=== PATIENT | female | born 1955 | race Caucasian/White ===

== ENCOUNTER 2016-10-20 10:17 | Outpatient (CLI) | payer MEDICARE, OTHER | END 2016-10-20 10:18 | disposition home or self-care (01) | DX: J32.8 Other chronic sinusitis (principal) ==

== ENCOUNTER 2016-12-19 08:49 | Outpatient (CLI) | payer MEDICARE, OTHER ==
[2016-12-19] MEDS ORDERED: IOTHALAMATE MEGLUMINE 50 ML VIAL IVP ONE (10:15)
[2016-12-19] MEDS ORDERED: GADOPENTETATE DIMEGLUMINE 5 ML VIAL IVP ONE ×2 (10:15→11:04)
[2016-12-19] MEDS ORDERED: LIDOCAINE 1% 50 ML MDV SUBQ ONE ×2 (10:15→10:57)
[2016-12-19] MEDS ORDERED: BUFFERED LIDOCAINE 10 ML SYRINGE IU ONE (10:15)
[2016-12-19] MEDS: BUFFERED LIDOCAINE 10 ML SYRINGE IU ONE ×2 (10:49→11:06)
[2016-12-19] MEDS: IOTHALAMATE MEGLUMINE 50 ML VIAL IVP ONE ×2 (11:05→11:08)
== END 2016-12-19 08:50 | disposition home or self-care (01) ==
DX: M75.101 Unspecified rotator cuff tear or rupture of right shoulder, not specified as traumatic (principal); M19.011 Primary osteoarthritis, right shoulder; S43.491A Other sprain of right shoulder joint, initial encounter; M19.012 Primary osteoarthritis, left shoulder; M75.82 Other shoulder lesions, left shoulder
CPT/HCPCS: 23350; 73222; 77002; Q9961

== ENCOUNTER 2017-09-15 23:34 | Emergency (ER) | payer MEDICARE, OTHER ==
--- NOTE | 2017-09-16 00:10 | XRAY Preliminary Report ---
Exam: XR FOOT 2 VIEW RT IMPRESSION: 1. No acute fracture or dislocation seen. [facility] SITE ID: [id number]
--- NOTE | 2017-09-16 00:12 | XRAY Report ---
EXAM: RIGHT FOOT RADIOGRAPHY EXAM DATE: 09/15/2017 11:59 PM. CLINICAL HISTORY: Trauma, pain swelling 2nd digit. COMPARISON: None. TECHNIQUE: 2 views. FINDINGS: Bones: No acute fracture seen. Old healed fracture in the second metatarsal. Plantar calcaneal osteop hyte. Joints: No dislocation seen. Mild degenerative changes. Soft Tissues: Mild soft tissue swelling. IMPRESSION: 1. No acute fracture or dislocation seen. [facility] Referring Provider Line: [phone] SITE ID: [id number]
--- NOTE | 2017-09-16 00:29 | ED Physician Documentation ---
PD HPI LOWER EXT INJURY - Stated complaint Stated Complaint: RT FOOT PX - Chief complaint Chief Complaint: Ext Problem - History obtained from History obtained from: Patient - History of Present Illness PD HPI LOW EXT INJURY LOCATION: Right, Toe Type of injury: Blunt / blow Where injury occurred: Home Timing - onset: Today Timing - details: Abrupt onset Worsened by: Moving, Palpating Associated symptoms: Discolored Recently seen: Not recently seen - Additional information Additional information: Patient is a 62 year old female who is presenting to the emergency department for toe pain. Patient states that she accidently kicked the table and no she had tenderness, ecchymosis and swelling of her toe so she wanted to see if it was broken. Patient denied any other trauma at this time. 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 - Present Medications Home Medications: Ambulatory Orders Medication Instructions Recorded Confirmed Albuterol 2.5 mg INH DAILY PRN 04/15/13 09/16/17 Aspirin 81 mg PO DAILY 04/15/13 09/16/17 Atorvastatin Calcium [Lipitor] 20 mg PO DAILY 04/15/13 09/16/17 Fexofenadine HCl [Vandana] 180 mg PO DAILY 04/15/13 09/16/17 Gabapentin [Neurontin] 1,200 mg PO HS 04/15/13 09/16/17 Gabapentin [Neurontin] 300 mg PO BID 04/15/13 09/16/17 Guaifenesin [Mucinex] 600 mg PO DAILY PRN 04/15/13 09/16/17 Indomethacin 75 mg PO BID 04/15/13 09/16/17 Montelukast Sodium [Singulair] 10 mg PO DAILY 04/15/13 09/16/17 Multivitamin [Multivitamins] 1 each PO DAILY 04/15/13 09/16/17 Omeprazole [Prilosec] 20 mg PO BID 04/15/13 09/16/17 Ranitidine HCl [Zantac 75] 150 mg PO DAILY PRN 04/15/13 09/16/17 Vit D3-Vit K/[place]/Hops 1 each PO DAILY 04/15/13 09/16/17 [Ostera Tablet] Cromolyn Sodium 1 puffs INH DAILY PRN 07/09/14 09/16/17 Ipratropium [place] 0.2 mg INH DAILY PRN 07/09/14 09/16/17 Fluticasone Propionate [Flonase 1 spray JACQUELINE BID 05/26/15 09/16/17 Allergy Relief] Fluticasone/Salmeterol [Advair 1 inh INH BID 05/27/15 09/16/17 500-50 Diskus] Tiotropium [place] [Spiriva] 1 tab INH QDBREAKFAST 05/27/15 09/16/17 HYDROcod/ACETAM 5/325 [Vicodin 1 tab PO Q6H PRN 10/28/15 09/16/17 5/325] Losartan/Hydrochlorothiazide 1 tab PO DAILY 10/28/15 09/16/17 [Losartan-Hctz 100-12.5 mg Tab] Nortriptyline [Pamelor] 10 mg PO DAILY 10/28/15 09/16/17 diltiaZEM [Cardizem] 30 mg PO DAILY 09/16/17 09/16/17 - Allergies Allergies/Adverse Reactions: Allergies Allergy/AdvReac Type Severity Reaction Status Date / Time adhesive AdvReac Severe Blisters Verified 09/15/17 23:42 codeine [Codeine] AdvReac Mild Cramps Verified 09/15/17 23:42 Fish Containing Products AdvReac Nausea Verified 09/15/17 23:42 hand sanitizers Allergy Severe reactive Uncoded 09/15/17 23:42 airway Most chemicals Allergy Severe Reactive Uncoded 09/15/17 23:42 airway paper tape AdvReac Intermediate blisters Uncoded 09/15/17 23:42 seafood AdvReac Intermediate Nausea Uncoded 09/15/17 23:42 - Social History Does the pt smoke?: No Smoking Status: Never smoker - Immunizations Immunizations are current?: Yes PD ED PE NORMAL - Vitals Vital signs reviewed: Yes - General General: Alert and oriented X 3, No acute distress - HEENT HEENT: Atraumatic - Neck Neck: No JVD - Cardiac Cardiac: RRR, No murmur - Respiratory Respiratory: No respiratory distress - Abdomen Abdomen: Non distended - Neuro Neuro: Alert and oriented X 3, No motor deficit, Normal speech Eye Opening: Spontaneous Motor: Obeys Commands Verbal: Oriented GCS Score: 15 - Psych Psych: Normal mood PD ED PE EXPANDED - Extremities Extremities: Right toe(s) (ecchymosis and tenderness of 2nd digit) Results - Vitals Vitals: Vital Signs - 24 hr 09/15/17 09/16/17 23:39 00:38 Temperature 36.0 C L 36.7 C Heart Rate 83 88 Respiratory 17 18 Rate Blood Pressure 145/92 H 157/89 H O2 Saturation 97 98 Oxygen O2 Source Room air - Rads (name of study) right foot Radiology: Final report received (no acute fracture or dislocation) PD MEDICAL DECISION MAKING - ED course Complexity details: reviewed old records, reviewed results, re-evaluated patient , considered differential, d/w patient, d/w family ED course: patient was seen and examined at bedside. Patient was sent for imaging. when patient returned the results were reviewed. there was no acute fracture or dislocation. Patient and family were made aware of the findings. patient required no further work up and was stable for discharge with outpatient follow up. Departure - Departure Disposition: 01 Home, Self Care Clinical Impression: Contusion of toe of right foot Condition: Good Instructions: ED Contusion Lower Ext Follow-Up: OLAMIDE MUHAMMAD [Primary Care Provider] - As Needed Comments: Your diagnostics today were within normal limits. there was no acute fracture or dislocation. You can take motrin or tylenol as needed for pain. You should follow up with your doctor if your symptoms persist. Discharge Date/Time: 09/16/17 00:41
[2017-09-16 00:40] VITALS: BP 157/89
== END 2017-09-16 00:41 | disposition home or self-care (01) ==
LOC: ED 23:34
DX: S90.121A Contusion of right lesser toe(s) without damage to nail, initial encounter (principal); W22.09XA Striking against other stationary object, initial encounter; I10 Essential (primary) hypertension; E78.00 Pure hypercholesterolemia, unspecified; Z79.82 Long term (current) use of aspirin
CPT/HCPCS: 99283

== ENCOUNTER 2017-09-26 09:10 | Emergency (ER) | payer MEDICARE, OTHER ==
[2017-09-26] MEDS ORDERED: ADENOSINE 6 MG/2 ML VIAL IVP ONE (09:33)
[2017-09-26] MEDS ORDERED: SODIUM CHLORIDE 0.9% 1,000 ML IV ONE (09:33)
[2017-09-26] MEDS ORDERED: ADENOSINE 6 MG/2 ML VIAL IVP STA (09:34)
--- NOTE | 2017-09-26 09:38 | ED Physician Documentation ---
History of Present Illness - Stated complaint Stated Complaint: RAPID HEART BEAT - Chief complaint Chief Complaint: Cardiac - Additonal information Additional information: hx from pt 62 f hx SVT has cardio takes dilt not a candidate for ablation until she loses wt awoke with SVT this AM no caffeine decongestants etc has some chest tightness and soa not hypotensive Review of Systems Constitutional: denies: Fever Cardiac: reports: Chest pain / pressure, Palpitations Respiratory: reports: Dyspnea GI: denies: Vomiting : denies: Now EGA Endocrine: denies: Easy bruising / bleeding Immunocompromised: denies: Immunocompromised PD PAST MEDICAL HISTORY - Past Medical History Cardiovascular: Hypertension, High cholesterol Respiratory: Asthma Neuro: None Endocrine/Autoimmune: None GI: GERD, Hiatal hernia, Diverticulitis, Other : None HEENT: Chronic sinusitis, Other Psych: None Musculoskeletal: Fibromyalgia, Other Derm: None - Past Surgical History Past Surgical History: Yes General: Cholecystectomy, Colonoscopy Ortho: Shoulder arthroplasty, Carpal Tunnel surgery /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, 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 - Present Medications Home Medications: Ambulatory Orders Medication Instructions Recorded Confirmed Albuterol 2.5 mg INH DAILY PRN 04/15/13 09/16/17 Aspirin 81 mg PO DAILY 04/15/13 09/16/17 Atorvastatin Calcium [Lipitor] 20 mg PO DAILY 04/15/13 09/16/17 Fexofenadine HCl [Vandana] 180 mg PO DAILY 04/15/13 09/16/17 Gabapentin [Neurontin] 1,200 mg PO HS 04/15/13 09/16/17 Gabapentin [Neurontin] 300 mg PO BID 04/15/13 09/16/17 Guaifenesin [Mucinex] 600 mg PO DAILY PRN 04/15/13 09/16/17 Indomethacin 75 mg PO BID 04/15/13 09/16/17 Montelukast Sodium [Singulair] 10 mg PO DAILY 04/15/13 09/16/17 Multivitamin [Multivitamins] 1 each PO DAILY 04/15/13 09/16/17 Omeprazole [Prilosec] 20 mg PO BID 04/15/13 09/16/17 Ranitidine HCl [Zantac 75] 150 mg PO DAILY PRN 04/15/13 09/16/17 Vit D3-Vit K/[place]/Hops 1 each PO DAILY 04/15/13 09/16/17 [Ostera Tablet] Cromolyn Sodium 1 puffs INH DAILY PRN 07/09/14 09/16/17 Ipratropium [place] 0.2 mg INH DAILY PRN 07/09/14 09/16/17 Fluticasone Propionate [Flonase 1 spray JACQUELINE BID 05/26/15 09/16/17 Allergy Relief] Fluticasone/Salmeterol [Advair 1 inh INH BID 05/27/15 09/16/17 500-50 Diskus] Tiotropium [place] [Spiriva] 1 tab INH QDBREAKFAST 05/27/15 09/16/17 HYDROcod/ACETAM 5/325 [Vicodin 1 tab PO Q6H PRN 10/28/15 09/16/17 5/325] Losartan/Hydrochlorothiazide 1 tab PO DAILY 10/28/15 09/16/17 [Losartan-Hctz 100-12.5 mg Tab] Nortriptyline [Pamelor] 10 mg PO DAILY 10/28/15 09/16/17 diltiaZEM [Cardizem] 30 mg PO DAILY 09/16/17 09/16/17 - Allergies Allergies/Adverse Reactions: Allergies Allergy/AdvReac Type Severity Reaction Status Date / Time adhesive AdvReac Severe Blisters Verified 09/15/17 23:42 codeine [Codeine] AdvReac Mild Cramps Verified 09/15/17 23:42 Fish Containing Products AdvReac Nausea Verified 09/15/17 23:42 hand sanitizers Allergy Severe reactive Uncoded 09/15/17 23:42 airway Most chemicals Allergy Severe Reactive Uncoded 09/15/17 23:42 airway paper tape AdvReac Intermediate blisters Uncoded 09/15/17 23:42 seafood AdvReac Intermediate Nausea Uncoded 09/15/17 23:42 - Social History Does the pt smoke?: No Smoking Status: Never smoker - Immunizations Immunizations are current?: Yes PD ED PE NORMAL - Vitals Vital signs reviewed: Yes - General General: Alert and oriented X 3 - HEENT HEENT: PERRL - Neck Neck: Supple, no meningeal sign - Cardiac Cardiac: No: RRR (tachy) - Respiratory Respiratory: No respiratory distress, Clear bilaterally - Derm Derm: Normal color - Extremities Extremities: No edema, No calf tenderness / cord - Neuro Neuro: Alert and oriented X 3 Results - Vitals Vitals: Vital Signs - 24 hr 09/26/17 09:31 Heart Rate 185 H Respiratory 22 Rate Blood Pressure 139/75 H O2 Saturation 98 Oxygen O2 Source Room air - EKG (time done) 0923 Rate: Rate (enter#) (179) Rhythm: SVT Ischemia: Non specific changes (2/2 rate) 0929 Rate: Rate (enter#) (120) Rhythm: Sinus tachycardia [place]: Normal Ischemia: Non specific changes - Labs Labs: Laboratory Tests 09/26/17 09:30 Sodium 139 Potassium 3.6 Chloride 103 Carbon Dioxide 20 L Anion Gap 16.0 H BUN 13 Creatinine 1.0 Estimated GFR (MDRD) 57 L Glucose 137 H Calcium 10.0 Magnesium 2.2 PD MEDICAL DECISION MAKING - ED course ED course: tried vagal maneuvers (ice on face, elev legs, blow on syringe) X 2 s success gave adenosine 6 with break and pt felt better creat 1.0 GFR 57 similar to prior Departure - Departure Disposition: 01 Home, Self Care Clinical Impression: SVT (supraventricular tachycardia) Condition: Good Instructions: ED Tachycardia Pat PSVT Comments: Your electrolytes were fine. You are back in a sinus rhythm It is OK for you to go home. 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
[2017-09-26 10:03] LABS: MAGNESIUM 2.2 mg/dL (1.7-2.8); POTASSIUM 3.6 mmol/L (3.5-5.0)
[2017-09-26 10:41] VITALS: BP 141/80
== END 2017-09-26 10:58 | disposition home or self-care (01) ==
LOC: ED 09:10
DX: I47.1 Supraventricular tachycardia (principal); I10 Essential (primary) hypertension; E78.00 Pure hypercholesterolemia, unspecified; J45.909 Unspecified asthma, uncomplicated; K21.9 Gastro-esophageal reflux disease without esophagitis; M79.7 Fibromyalgia; Z79.82 Long term (current) use of aspirin
CPT/HCPCS: 36415; 80048; 83735; 93005; 96361; 96374; 99284; J0153

== ENCOUNTER 2018-08-25 14:37 | Outpatient (CLI) | payer MEDICARE, OTHER ==
--- NOTE | 2018-08-27 11:44 | MRI Report ---
Reason: PAIN IN RIGHT SHOULDER Procedure Date: 08/25/2018 Accession Number: [id number] / [id number] Procedure: MRI - Shoulder RT W/O CPT Code: FULL RESULT: EXAM: RIGHT SHOULDER MRI WITHOUT CONTRAST EXAM DATE: 08/25/2018 03:03 PM. CLINICAL HISTORY: Pain in right shoulder. COMPARISON: None. TECHNIQUE: Multiplanar, multisequence T1-weighted and fluid-sensitive sequences of the shoulder without contrast. Other: None. FINDINGS: Acromioclavicular Region: The acromion is type II. AC joint is moderately osteoarthritic. The coracoacromial and coracoclavicular ligaments are intact. Trace amount of subacromial bursal fluid is present. Glenohumeral Region: No subluxation. Fusion, loose body and debris seen dependently. 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 Large marginal osteophyte arises from the inferior medial humeral head. The glenohumeral ligaments and joint capsule are unremarkable. Bony labrum is somewhat broadened as well. Bone Marrow: Small amount of subjacent cystic change at the central aspect of the glenoid. Series 6 on image 13. Labrum: Type I SLAP lesion on this non-arthrographic study. Series 601 image 11 and 12. Musculature/Rotator Cuff: Increased T2 signal and thickening of the supraspinatus, infraspinatus and to a lesser extent the subscapularis portion of the rotator cuff. Teres minor is normal. Biceps Tendon: Long head biceps tendon near the horizontal portion does show some type I signal change. Remainder of the tendon appears unremarkable. Other: The subcutaneous tissues are unremarkable. IMPRESSION: 1. Type II unipartite undersurface osseous acromion shape. AC joint is moderately osteoarthritic, trace amount of bursal fluid also is present. 2. Moderate-sized joint effusion. Loose body is seen dependently. 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 Large marginal osteophyte arises from the inferior medial humeral head. 3. Glenoid is somewhat broadened, there also is loss of articular cartilage in the weightbearing aspect and a small subjacent cystic change. 4. At least a type I SLAP lesion is present. 5. Horizontal intra-articular biceps tendon does show some tendinitis. [facility] MUSCULOSKELETAL RADIOLOGY SECTION
== END 2018-08-25 14:38 | disposition home or self-care (01) ==
LOC: DI 14:37
PROVIDERS: ATTEND Physician Assistant
DX: M19.011 Primary osteoarthritis, right shoulder (principal); M25.411 Effusion, right shoulder; M24.011 Loose body in right shoulder; M94.211 Chondromalacia, right shoulder; S43.431A Superior glenoid labrum lesion of right shoulder, initial encounter; M75.21 Bicipital tendinitis, right shoulder; M24.111 Other articular cartilage disorders, right shoulder

== ENCOUNTER 2019-09-11 10:48 | Outpatient (CLI) | payer MEDICARE, OTHER ==
--- NOTE | 2019-09-11 16:04 | Ultrasound Report ---
Reason: LUMBAR STENOSIS WITH NEUROGENIC CLAUDICATION Procedure Date: 09/11/2019 Accession Number: [id number] / [id number] Procedure: US - Ankle Brachial Index CPT Code: Final Report FULL RESULT: EXAM: ULTRASOUND - BILATERAL ANKLE BRACHIAL INDEX EXAM DATE: 09/11/2019 12:41 PM. CLINICAL HISTORY: Neurogenic claudication. COMPARISON: None. TECHNIQUE: Real-time sonographic vascular imaging was performed by the sql database programmer, utilizing color-flow, Doppler flow documenting ABIs. FINDINGS: Right systolic pressure: Brachial: 130/70 Ankle: 131/66 ZARIA: 1.0 Left systolic pressure: Brachial: 121/71 Ankle: 143/67 ZARIA: 1.18 IMPRESSION: 1. Right ZARIA 1.0. Normal. 2. Left ZARIA 1.18 normal. [facility]
== END 2019-09-11 10:49 | disposition home or self-care (01) ==
LOC: DI 10:48
PROVIDERS: ATTEND Physical Medicine & Rehabilitation
DX: M48.062 Spinal stenosis, lumbar region with neurogenic claudication (principal)
CPT/HCPCS: 93922

== ENCOUNTER 2020-09-24 01:05 | Emergency (ER) | payer MEDICARE, OTHER ==
[2020-09-24 03:17] VITALS: BP 130/70
--- NOTE | 2020-09-24 04:03 | ED Physician Documentation ---
History of Present Illness - Stated complaint Stated Complaint: NOSE BLEED - Chief complaint Chief Complaint: Heent - History obtained from History obtained from: Patient - Additonal information Additional information: 65-year-old woman with history of recurrent sinusitis taking daily nasal sprays, not on blood thinners or anticoagulation, taking only a baby aspirin daily presents with first-time bilateral epistaxis that resolved around midnight. Patient states that she was holding a washcloth to her face for about 30 minutes and it became soaked so she came to the ED. On arrival to the ED she was given a nasal clamp and it stopped. She was observed for 2 hours and had no recurrence. No other complaints at this time. She denies nose picking. Denies pain or fever. 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 - Present Medications Home Medications: Ambulatory Orders Medication Instructions Recorded Confirmed Albuterol 2.5 mg INH DAILY PRN 04/15/13 09/16/17 Aspirin 81 mg PO DAILY 04/15/13 09/16/17 Atorvastatin Calcium [Lipitor] 20 mg PO DAILY 04/15/13 09/16/17 Fexofenadine HCl [Vandana] 180 mg PO DAILY 04/15/13 09/16/17 Gabapentin [Neurontin] 1,200 mg PO HS 04/15/13 09/16/17 Gabapentin [Neurontin] 300 mg PO BID 04/15/13 09/16/17 Guaifenesin [Mucinex] 600 mg PO DAILY PRN 04/15/13 09/16/17 Indomethacin 75 mg PO BID 04/15/13 09/16/17 Montelukast Sodium [Singulair] 10 mg PO DAILY 04/15/13 09/16/17 Multivitamin [Multivitamins] 1 each PO DAILY 04/15/13 09/16/17 Omeprazole [Prilosec] 20 mg PO BID 04/15/13 09/16/17 Vit D3-Vit K/[place]/Hops 1 each PO DAILY 04/15/13 09/16/17 [Ostera Tablet] raNITIdine HCL [Zantac 75] 150 mg PO DAILY PRN 04/15/13 09/16/17 Cromolyn Sodium 1 puffs INH DAILY PRN 07/09/14 09/16/17 Ipratropium [place] 0.2 mg INH DAILY PRN 07/09/14 09/16/17 Fluticasone Propionate [Flonase 1 spray JACQUELINE BID 05/26/15 09/16/17 Allergy Relief] Fluticasone/Salmeterol [Advair 1 inh INH BID 05/27/15 09/16/17 500-50 Diskus] Tiotropium [place] [Spiriva] 1 tab INH QDBREAKFAST 05/27/15 09/16/17 HYDROcod/ACETAM 5/325 [Vicodin 1 tab PO Q6H PRN 10/28/15 09/16/17 5/325] Losartan/Hydrochlorothiazide 1 tab PO DAILY 10/28/15 09/16/17 [Losartan-Hctz 100-12.5 mg Tab] Nortriptyline [Pamelor] 10 mg PO DAILY 10/28/15 09/16/17 diltiaZEM [Cardizem] 30 mg PO DAILY 09/16/17 09/16/17 - Allergies Allergies/Adverse Reactions: Allergies Allergy/AdvReac Type Severity Reaction Status Date / Time adhesive AdvReac Severe Blisters Verified 09/24/20 01:17 codeine [Codeine] AdvReac Mild Cramps Verified 09/24/20 01:17 Fish Containing Products AdvReac Nausea Verified 09/24/20 01:17 hand sanitizers Allergy Severe reactive Uncoded 09/15/17 23:42 airway Most chemicals Allergy Severe Reactive Uncoded 09/15/17 23:42 airway paper tape AdvReac Intermediate blisters Uncoded 09/15/17 23:42 seafood AdvReac Intermediate Nausea Uncoded 09/15/17 23:42 - Social History Does the pt smoke?: No Smoking Status: Never smoker - Immunizations Immunizations are current?: Yes PD ED PE NORMAL - Vitals Vital signs reviewed: Yes - General General: Alert and oriented X 3 - HEENT HEENT: Atraumatic, PERRL, EOMI, Moist mucous membranes, Other (Bilateral dried blood in the nares. No nasal septal hematoma.No obvious bleeding origin to cauterize) - Derm Derm: Normal color - Psych Psych: Normal mood, Normal affect Results - Vitals Vitals: Vital Signs - 24 hr 09/24/20 09/24/20 09/24/20 01:05 01:36 03:15 Temperature 36.1 C L 36.5 C 36.5 C Heart Rate 93 93 88 Respiratory 19 19 16 Rate Blood Pressure 134/69 H 134/69 H 130/70 O2 Saturation 97 97 98 Oxygen O2 Source Room air PD MEDICAL DECISION MAKING - ED course Complexity details: re-evaluated patient, d/w patient ED course: 65-year-old woman with history of sinusitis presents with epistaxis that resolved in the ED with conservative measures. Patient was educated on how to address nosebleed initially outpatient and extensive education was given about red flags for return. She will call to follow up with her ear nose and throat doctor this week. Departure - Departure Disposition: 01 Home, Self Care Clinical Impression: Epistaxis Condition: Good Instructions: Nosebleed Comments: You have been seen in the emergency department for nosebleed. Make sure that you apply direct pressure for 10 minutes if you have another nosebleed and lean forward. Return to the ED if it does not stop after that time. Call your ear nose and throat doctor and make an appointment this week.Avoid use of nasal sprays since they can damage your tissues. Discharge Date/Time: 09/24/20 03:15
== END 2020-09-24 03:15 | disposition home or self-care (01) ==
LOC: ED 01:05
DX: R04.0 Epistaxis (principal)
CPT/HCPCS: 99281; 99282

== ENCOUNTER 2020-09-27 05:52 | Emergency (ER) | payer MEDICARE, OTHER ==
[2020-09-27] MEDS ORDERED: OXYMETAZOLINE HCL 100 SPRAYS BOTTLE NAS STA (05:57)
[2020-09-27 06:08] VITALS: BP 117/98
[2020-09-27] MEDS ORDERED: WATER FOR INJECTION,STERILE 10 ML ONE (06:19)
--- NOTE | 2020-09-27 06:30 | ED Physician Documentation ---
History of Present Illness - Stated complaint Stated Complaint: NOSE BLEED - Chief complaint Chief Complaint: Heent - History obtained from History obtained from: Patient - Additonal information Additional information: Patient comes emergency department complaining of a right-sided nosebleed for the third Past 4 days. The patient denies any trauma to her nose. She has a history of high blood pressure but this has been under control with meds. She takes only aspirin as far as anticoagulation. She denies any recent cold or allergies. No straining recently such as coughing, vomiting, or constipation. She states she had not previously had a problem with nosebleeds until the last several days. She states she was seen here a few days ago after her nose bled for an hour and a half, but that by the time she got here, the bleeding had stopped. At that time, she decided to just leave well enough alone. Yesterday, she had another bleed on the right side and this lasted an hour and a half of finally stopped so she did not come in. Today, she has been bleeding for about 30 minutes. She does have an established relationship with ENT and scheduled to see them in 3 days. No other complaints at this time. Review of Systems Ten Systems: 10 systems reviewed and negative Constitutional: reports: Reviewed and negative Eyes: reports: Reviewed and negative Ears: reports: Reviewed and negative Nose: reports: Epistaxis, Sinus pressure / pain Throat: reports: Reviewed and negative Cardiac: reports: Reviewed and negative Respiratory: reports: Reviewed and negative GI: reports: Reviewed and negative : reports: Reviewed and negative Skin: reports: Reviewed and negative Musculoskeletal: reports: Reviewed and negative Neurologic: reports: Reviewed and negative Psychiatric: reports: Reviewed and negative Endocrine: reports: Reviewed and negative Immunocompromised: reports: Reviewed and negative PD PAST MEDICAL HISTORY - Past Medical History Cardiovascular: Hypertension, High cholesterol Respiratory: Asthma Endocrine/Autoimmune: None GI: GERD, Hiatal hernia, Diverticulitis, Other : None HEENT: Chronic sinusitis, Other Psych: None Musculoskeletal: Fibromyalgia, Other Derm: None - Past Surgical History Past Surgical History: Yes General: Cholecystectomy, Colonoscopy Ortho: Shoulder arthroplasty, Carpal Tunnel surgery /PROJECT DIRECTOR: Hysterectomy, Oophrectomy - Present Medications Home Medications: Ambulatory Orders Medication Instructions Recorded Confirmed Albuterol 2.5 mg INH DAILY PRN 04/15/13 09/16/17 Aspirin 81 mg PO DAILY 04/15/13 09/16/17 Atorvastatin Calcium [Lipitor] 20 mg PO DAILY 04/15/13 09/16/17 Fexofenadine HCl [Vandana] 180 mg PO DAILY 04/15/13 09/16/17 Gabapentin [Neurontin] 1,200 mg PO HS 04/15/13 09/16/17 Gabapentin [Neurontin] 300 mg PO BID 04/15/13 09/16/17 Guaifenesin [Mucinex] 600 mg PO DAILY PRN 04/15/13 09/16/17 Indomethacin 75 mg PO BID 04/15/13 09/16/17 Montelukast Sodium [Singulair] 10 mg PO DAILY 04/15/13 09/16/17 Multivitamin [Multivitamins] 1 each PO DAILY 04/15/13 09/16/17 Omeprazole [Prilosec] 20 mg PO BID 04/15/13 09/16/17 Vit D3-Vit K/Berberine/Hops 1 each PO DAILY 04/15/13 09/16/17 [Ostera Tablet] raNITIdine HCL [Zantac 75] 150 mg PO DAILY PRN 04/15/13 09/16/17 Cromolyn Sodium 1 puffs INH DAILY PRN 07/09/14 09/16/17 Ipratropium [place] 0.2 mg INH DAILY PRN 07/09/14 09/16/17 Fluticasone Propionate [Flonase 1 spray JACQUELINE BID 05/26/15 09/16/17 Allergy Relief] Fluticasone/Salmeterol [Advair 1 inh INH BID 05/27/15 09/16/17 500-50 Diskus] Tiotropium [place] [Spiriva] 1 tab INH QDBREAKFAST 05/27/15 09/16/17 HYDROcod/ACETAM 5/325 [Vicodin 1 tab PO Q6H PRN 10/28/15 09/16/17 5/325] Losartan/Hydrochlorothiazide 1 tab PO DAILY 10/28/15 09/16/17 [Losartan-Hctz 100-12.5 mg Tab] Nortriptyline [Pamelor] 10 mg PO DAILY 10/28/15 09/16/17 diltiaZEM [Cardizem] 30 mg PO DAILY 09/16/17 09/16/17 - Allergies Allergies/Adverse Reactions: Allergies Allergy/AdvReac Type Severity Reaction Status Date / Time adhesive AdvReac Severe Blisters Verified 09/24/20 01:17 codeine [Codeine] AdvReac Mild Cramps Verified 09/24/20 01:17 Fish Containing Products AdvReac Nausea Verified 09/24/20 01:17 hand sanitizers Allergy Severe reactive Uncoded 09/15/17 23:42 airway Most chemicals Allergy Severe Reactive Uncoded 09/15/17 23:42 airway paper tape AdvReac Intermediate blisters Uncoded 09/15/17 23:42 seafood AdvReac Intermediate Nausea Uncoded 09/15/17 23:42 - Social History Does the pt smoke?: No Smoking Status: Never smoker - Immunizations Immunizations are current?: Yes PD ED PE NORMAL - Vitals Vital signs reviewed: Yes - General General: Alert and oriented X 3, No acute distress - HEENT HEENT: Atraumatic, PERRL, EOMI, Moist mucous membranes, Other (Both fresh and dried blood are noted in Ulnaris. Moderate size clot expelled from patient's mouth voluntarily. No active bleeding. Eroded area noted on right side of nasal septum.) - Neck Neck: Supple, no meningeal sign - Cardiac Cardiac: RRR, No murmur - Respiratory Respiratory: No respiratory distress, Clear bilaterally - Abdomen Abdomen: Soft, Non tender, Non distended - Derm Derm: Warm and dry - Extremities Extremities: No deformity - Neuro Neuro: Alert and oriented X 3 - Psych Psych: Normal mood, Normal affect Results - Vitals Vitals: Vital Signs - 24 hr 09/27/20 05:55 Temperature 36.2 C L Heart Rate 96 Respiratory 18 Rate Blood Pressure 117/98 H O2 Saturation 98 Oxygen O2 Source Room air Procedures - Epistaxis Site: Right Preparation: Clots removed, Afrin, Clamp / pressure applied Treatment: Anterior rhinorocket Other: Observed - no bleeding, Pt tolerated well, O2 sat WNL PD MEDICAL DECISION MAKING - ED course Complexity details: reviewed old records, considered differential, d/w patient ED course: Discussed with the patient that at this point in time, given the number of prolonged episodes of epistaxis that she has had in 3 days 4 days time, the best plan is to place nasal packing. The patient on the first day was told to stop her fluticasone spray, which she did, but was not given oxymetazoline. I have given her a couple of sprays of this in each nostril today, but I still feel that given the recurrence of bleeding, she would still benefit from packing. Patient prefers this also, and she states she is tired of bleeding and has upcoming ENT appointment. We have discussed epistaxis management, as well as the usual indications for return Departure - Departure Disposition: 01 Home, Self Care Clinical Impression: Epistaxis Condition: Stable Instructions: ED Nosebleed, ED Nasal Packing Anterior Removable Comments: Nasal packing has been placed, which can be removed by your ENT specialist on Monday at your appointment, if ENT feels your nose is ready. If you begin to bleed around the packing, please return to the emergency department. Discharge Date/Time: 09/27/20 06:43
== END 2020-09-27 06:43 | disposition home or self-care (01) ==
LOC: ED 05:52
DX: R04.0 Epistaxis (principal); I10 Essential (primary) hypertension; Z79.82 Long term (current) use of aspirin
CPT/HCPCS: 30901; 99282; A9270

== ENCOUNTER 2020-11-11 11:22 | Outpatient (CLI) | payer MEDICARE, OTHER ==
--- NOTE | 2020-11-11 14:59 | Mammography Report ---
BILATERAL DIGITAL SCREENING MAMMOGRAM: 11/11/2020 CLINICAL: Routine screening. Comparison is made to exams dated: 12/22/2015 mammogram, 09/04/2013 mammogram, 09/25/2012 mammogram, 09/22/2011 mammogram, and 09/18/2010 mammogram - [facility]. The tissue of both breas ts is heterogeneously dense. This may lower the sensitivity of mammography. There is a new oval equal density mass with an obscured and circumscribed margin in the right breast at 11 o'clock anterior depth. No other significant masses, calcifications, or other findings are seen in either breast. IMPRESSION: INCOMPLETE: NEEDS ADDITIONAL IMAGING EVALUATION The new oval equal density mass in the right breast resembles a cyst and is indeterminate. An ultras ound is recommended. This exam was interpreted at Station ID: [id number]. NOTE: For mammograms, a report in lay terms will be sent to the patient. Approximately 15% of breast malignancies will not be visualized mammographically. In the management of a palpable breast mass, a negative mammogram must not discourage biopsy of a clinically suspicious lesion. Electronically Signed By: Maco Hill M.D. ddp/penrad:11/11/2020 12:22:25 ACR BI-RADS Category 0: Incomplete 3340F PARENCHYMAL PATTERN: (D) - The breast(s) demonstrate(s) heterogeneously dense fibroglandular parmaryanne costa. BI-RADS CATEGORY: (0) - 0 Ultrasound [id number] Immediate follow-up LATERALITY: (B)
== END 2020-11-11 11:23 | disposition home or self-care (01) ==
LOC: DI.N 11:22
DX: Z12.31 Encounter for screening mammogram for malignant neoplasm of breast (principal); R92.8 Other abnormal and inconclusive findings on diagnostic imaging of breast

== ENCOUNTER 2020-11-26 03:35 | Outpatient (CLI) | payer MEDICARE, OTHER | END 2020-11-26 03:36 | disposition left against medical advice (07) | LOC: EMS 03:35 | DX: R55 Syncope and collapse (principal); M54.9 Dorsalgia, unspecified ==

== ENCOUNTER 2020-11-29 18:03 | Outpatient (CLI) | payer MEDICARE, OTHER | END 2020-11-29 18:04 | disposition critical access hospital (66) | LOC: EMS 18:03 | PROVIDERS: ATTEND Emergency Medicine | DX: R06.00 Dyspnea, unspecified (principal); R55 Syncope and collapse | CPT/HCPCS: A0425; A0429 ==

== ENCOUNTER 2020-11-29 18:14 | Inpatient (IN) | payer MEDICARE, OTHER ==
--- NOTE | 2020-11-29 18:33 | ED Physician Documentation ---
PD HPI DYSPNEA - Stated complaint Stated Complaint: COPD - History obtained from History obtained from: Family ( by phone), EMS - Additional information Additional information: Had preop covid test for TM tube 7 days ago and found out it was positive 6 days ago. Increasing weakness and SOA x3 days. Review of Systems Unable to obtain: Other (cannot talk) PD PAST MEDICAL HISTORY - Past Medical History Cardiovascular: Hypertension, High cholesterol Respiratory: Asthma Endocrine/Autoimmune: None GI: GERD, Hiatal hernia, Diverticulitis, Other : None HEENT: Chronic sinusitis, Other Psych: None Musculoskeletal: Fibromyalgia, Other Derm: None - Past Surgical History Past Surgical History: Yes General: Cholecystectomy, Colonoscopy Ortho: Shoulder arthroplasty, Carpal Tunnel surgery /[employer]ISTICS: Hysterectomy, Oophrectomy - Present Medications Home Medications: Ambulatory Orders Medication Instructions Recorded Confirmed Albuterol 2.5 mg INH DAILY PRN 04/15/13 11/29/20 Aspirin 81 mg PO DAILY 04/15/13 11/29/20 Atorvastatin Calcium [Lipitor] 20 mg PO DAILY 04/15/13 11/29/20 Gabapentin [Neurontin] 1,200 mg PO HS 04/15/13 11/29/20 Gabapentin [Neurontin] 300 mg PO BID 04/15/13 11/29/20 Montelukast Sodium [Singulair] 10 mg PO DAILY 04/15/13 11/29/20 Fluticasone Propionate [Flonase 2 spray JACQUELINE DAILY 05/26/15 11/29/20 Allergy Relief] Fluticasone/Salmeterol [Advair 1 inh INH BID 05/27/15 11/29/20 500-50 Diskus] Tiotropium [place] [Spiriva] 1 tab INH QDBREAKFAST 05/27/15 11/29/20 HYDROcod/ACETAM 5/325 [Vicodin 1 tab PO Q6H PRN 10/28/15 11/29/20 5/325] diltiaZEM [Cardizem] 120 mg PO DAILY 09/16/17 11/29/20 Loratadine [Claritin] 10 mg PO DAILY 11/29/20 11/29/20 Losartan Potassium 50 mg PO DAILY 11/29/20 11/29/20 Pantoprazole [Protonix] 40 mg PO BID 11/29/20 11/29/20 - Allergies Allergies/Adverse Reactions: Allergies Allergy/AdvReac Type Severity Reaction Status Date / Time adhesive AdvReac Severe Blisters Verified 09/24/20 01:17 codeine [Codeine] AdvReac Mild Cramps Verified 09/24/20 01:17 Fish Containing Products AdvReac Nausea Verified 09/24/20 01:17 hand sanitizers Allergy Severe reactive Uncoded 09/15/17 23:42 airway Most chemicals Allergy Severe Reactive Uncoded 09/15/17 23:42 airway paper tape AdvReac Intermediate blisters Uncoded 09/15/17 23:42 seafood AdvReac Intermediate Nausea Uncoded 09/15/17 23:42 - Social History Does the pt smoke?: No Smoking Status: Never smoker - Immunizations Immunizations are current?: Yes PD ED PE NORMAL - Vitals Vital signs reviewed: Yes - General General: Other (She is struggling to breathe and cannot talk. This is on 15 L of oxygen her sat is around 80% on the monitor.) - HEENT HEENT: PERRL, EOMI - Neck Neck: Supple, no meningeal sign - Respiratory Respiratory: Other (Tachypneic, hypoxic, struggling to breathe, cannot talk at all. Rhonchi right base. Diminished throughout.) - Abdomen Abdomen: Soft, Non tender - Back Back: No CVA TTP, No spinal TTP - Derm Derm: Normal color, Warm and dry - Extremities Extremities: No edema, No calf tenderness / cord - Neuro Neuro: Other (She will nod and shake her head to certain questions but somewhat slowly.) Results - Vitals Vitals: Vital Signs - 24 hr 11/29/20 11/29/20 11/29/20 18:25 18:40 18:55 Temperature 39.1 C H Heart Rate 120 H 109 H Respiratory 45 H 60 H 49 H Rate Blood Pressure 137/119 H 128/75 O2 Saturation 82 L 73 L 98 Oxygen O2 Source BIPAP Oxygen Flow Rate 15 - EKG (time done) 1851 Rate: Rate (enter#) (109) Rhythm: Sinus tachycardia Drake: Normal QRS: Low voltage Ischemia: Non specific changes Computer interpretation: Agree with computer - Labs Labs: Laboratory Tests 11/29/20 11/29/20 11/29/20 18:41 18:41 18:41 WBC 13.8 H RBC 4.45 Hgb 13.7 Hct 40.7 MCV 91.5 MCH 30.8 MCHC 33.7 RDW 12.9 Plt Count 273 MPV 9.6 Neut # (Auto) 12.3 H Lymph # (Auto) 0.7 L Gooding # (Auto) 0.6 Eos # (Auto) 0.1 Baso # (Auto) 0.0 Absolute Nucleated RBC 0.00 Nucleated RBC % 0.0 PT 15.4 H INR 1.4 H VBG pH VBG pCO2 VBG pO2 VBG HCO3 VBG Total CO2 VBG O2 Saturation VBG Base Excess Sodium 139 Potassium 3.4 L Chloride 100 L Carbon Dioxide 21 Anion Gap 18.0 H BUN 24 H Creatinine 1.2 H Estimated GFR (MDRD) 45 L Glucose 156 H Lactic Acid Calcium 9.0 Magnesium 2.0 Total Bilirubin 1.3 H AST 198 H ALT 166 H Alkaline Phosphatase 189 H Troponin I High Sens Total Protein 7.6 Albumin 3.3 Globulin 4.3 H Albumin/Globulin Ratio 0.8 L 11/29/20 11/29/20 11/29/20 18:41 18:41 18:41 WBC RBC Hgb Hct MCV MCH MCHC RDW Plt Count MPV Neut # (Auto) Lymph # (Auto) Gooding # (Auto) Eos # (Auto) Baso # (Auto) Absolute Nucleated RBC Nucleated RBC % PT INR VBG pH 7.406 VBG pCO2 34.4 L VBG pO2 26.2 VBG HCO3 21.1 L VBG Total CO2 22.2 L VBG O2 Saturation 48.7 L VBG Base Excess -2.8 L Sodium Potassium Chloride Carbon Dioxide Anion Gap BUN Creatinine Estimated GFR (MDRD) Glucose Lactic Acid 2.3 H Calcium Magnesium Total Bilirubin AST ALT Alkaline Phosphatase Troponin I High Sens 18.2 H* Total Protein Albumin Globulin Albumin/Globulin Ratio PD MEDICAL DECISION MAKING - ED course ED course: This is a Covid + 65-year-old woman who is in respiratory distress/failure. On arrival she is on maximal nonrebreather oxygen with a sat of 80% and very tachypneic. We will trial to temporize her with BiPAP but suspect she will need to be intubated. I discussed this with her and she nodded in agreement. I also spoke with her by phone who agreed. However after BiPAP was initiated, she was actually doing much better with sats near 100% and less respiratory distress. She may need still need intubation at some point but I think we can hold off for now. I did start on Rocephin and Zithromax for potential underlying community-acquired bacterial pneumonia after blood cultures. was updated by phone. Spoke with Dr. Buenrostro for admission at 7:01 PM. - Critical Care Time(min): 45 Time Includes: Direct patient care, Review records, Reassess patient, Document care, Coordinate care, Medical consult, Family consult for tx dec Data interpretation: Labs, Pulse ox, ABG Procedures included in critical care time: Peripheral IV Procedures excluded from critical care time: EKG Departure - Departure Disposition: 66 [facility] DC/Xfer Clinical Impression: Pneumonia due to COVID-19 virus Respiratory failure Qualifiers: Chronicity: acute Condition: Critical Discharge Date/Time: 11/29/20 21:05
[2020-11-29] MEDS ORDERED: DEXAMETHASONE 10 MG/ML VIAL IVP STA (18:36)
[2020-11-29] MEDS ORDERED: cefTRIAXone 2 GM in SODIUM CHLORIDE 0.9% MINIBAG 100 ML IV STA (18:40)
[2020-11-29] MEDS ORDERED: AZITHROMYCIN INJ 500 MG in SODIUM CHLORIDE 0.9% 250 ML IV STA (18:40)
[2020-11-29 18:45] LABS: BASOPHILS % (AUTO) 0.2 %; EOSINOPHILS # (AUTO) 0.1 10^3/uL (0.0-0.7); EOSINOPHILS % (AUTO) 0.7 %; HCT - HEMATOCRIT 40.7 % (37.0-47.0); HGB - HEMOGLOBIN 13.7 g/dL (12.0-16.0); LYMPHOCYTES # (AUTO) 0.7 10^3/uL (1.5-3.5); LYMPHOCYTES % (AUTO) 4.7 %; MEAN CORPUSCULAR HEMOGLOBIN 30.8 pg (27.0-31.0); MEAN CORPUSCULAR HGB CONC 33.7 g/dL (32.0-36.0); MEAN CORPUSCULAR VOLUME 91.5 fL (81.0-99.0); MEAN PLATELET VOLUME 9.6 fL (7.9-10.8); MONOCYTES # (AUTO) 0.6 10^3/uL (0.0-1.0); NEUTROPHILS # (AUTO) 12.3 10^3/uL (1.5-6.6); NEUTROPHILS % (AUTO) 88.9 %; PLT - PLATELET COUNT 273 10^3/uL (130-450); RED BLOOD COUNT 4.45 10^6/uL (4.20-5.40); RED CELL DISTRIBUTION WIDTH 12.9 % (12.0-15.0); WHITE BLOOD COUNT 13.8 x10^3/uL (4.8-10.8)
[2020-11-29 18:47] LABS: VBG BASE EXCESS -2.8 mmol/L (-2 - +2); VBG HCO3 21.1 mmol/L (23-28); VBG OXYGEN SATURATION 48.7 % (60-80); VBG PCO2 34.4 mmHg (41-51); VBG PH 7.406 (7.31-7.41); VBG PO2 26.2 mmHg (25-47); VBG TOTAL CO2 22.2 mmol/L (24-29)
[2020-11-29 18:50] LABS: INR 1.4 (0.8-1.2); PT - PROTHROMBIN TIME 15.4 secs (9.9-12.6)
[2020-11-29] MEDS ORDERED: ACETAMINOPHEN 325 MG TABLET PO PRN (19:01)
[2020-11-29] MEDS ORDERED: ONDANSETRON 4 MG/2 ML VIAL IVP PRN (19:01)
[2020-11-29] MEDS ORDERED: ONDANSETRON ODT 4 MG TABLET TL PRN (19:01)
[2020-11-29] MEDS ORDERED: cefTRIAXone 2 GM VIAL ONE (19:04)
[2020-11-29 19:06] LABS: ALBUMIN 3.3 g/dL (3.2-5.5); ALBUMIN/GLOBULIN RATIO 0.8 (1.0-2.2); BILIRUBIN,TOTAL 1.3 mg/dL (0.2-1.0); CREATININE 1.2 mg/dL (0.4-1.0); POTASSIUM 3.4 mmol/L (3.5-5.0); TOTAL PROTEIN 7.6 g/dL (6.7-8.2)
[2020-11-29] MEDS ORDERED: ACETAMINOPHEN 1,000 MG/100 ML 100 ML IV ONE (19:10)
--- NOTE | 2020-11-29 19:15 | XRAY Report ---
PROCEDURE: Chest 1 View X-Ray INDICATIONS: resp failure TECHNIQUE: One view of the chest was acquired. COMPARISON: 10/28/2015 FINDINGS: Surgical changes and devices: None. Lungs and pleura: No pleural effusions or pneumothorax. Patchy airspace opacities noted in the lungs bilaterally. Elevated right hemidiaphragm is stable compared to the prior examination. Mediastinum: Mediastinal contours appear normal. Heart size is normal. Bones and chest wall: No suspicious bony lesions. Overlying soft tissues appear unremarkable. IMPRESSION: Bilateral lung multilobar pneumonia. Reviewed by: Stefany Anderson MD, PhD on 11/29/2020 7:14 PM PST Approved by: Stefany Anderson MD, PhD on 11/29/2020 7:14 PM PST Station ID: [id number]
[2020-11-29] MEDS ORDERED: LORazepam 2 MG/ML VIAL IVP STA (19:22)
[2020-11-29] MEDS ORDERED: MORPHINE 2 MG/ML CARPUJECT IVP STA (20:20)
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
[2020-11-29] MEDS: ALBUTEROL NEB 2.5 MG/3 ML INH SCH (22:23)
[2020-11-29] MEDS: ENOXAPARIN 80 MG/0.8 ML SYRINGE SUBQ SCH (23:38)
[2020-11-29] MEDS: SODIUM CHLORIDE FLUSH 0.9% 10 ML SYRINGE IVP PRN (23:38)
[2020-11-30] MEDS: SODIUM CHLORIDE FLUSH 0.9% 10 ML SYRINGE IVP SCH ×3 (00:11→16:59)
[2020-11-30] MEDS: ALBUTEROL NEB 2.5 MG/3 ML INH SCH ×4 (02:29→14:04)
--- NOTE | 2020-11-30 03:29 | PROVIDER PROGRESS NOTE ---
Subjective - Prog Note Date Prog Note Date: 11/30/20 Prog Note Time: 03:27 - Subjective Subjective: In the ICU, she has been alert, lucid enough to speak to respiratory therapy and nursing. However she is exhausted. Respiratory rate has not dipped below 30. O2 sats have went from 100%, to 94%, to 88%. Current Medications - Current Medications Current Medications: Active Medications Acetaminophen (Acetaminophen 325 Mg Tablet) 650 mg PO Q4HR PRN PRN Reason: Pain 1 to 4 Albuterol (Albuterol Neb 2.5 Mg/3 Ml) 2.5 mg INH Q4HR [facility] Last Admin: 11/30/20 02:29 Dose: 2.5 mg Documented by: Albuterol/Ipratropium (Ipratropium/Albuterol 3 Ml Neb) 3 ml INH RTQID KEVEN Budesonide (Budesonide 0.5 Mg/2 Ml Neb) 0.5 mg INH RTBID [facility] Dexamethasone (Dexamethasone 4 Mg/Ml Vial) 6 mg IVP DAILY [facility] Enoxaparin Sodium (Enoxaparin 80 Mg/0.8 Ml Syringe) 80 mg SUBQ BID [facility] Last Admin: 11/29/20 23:38 Dose: 80 mg Documented by: Formoterol Fumarate (Formoterol Fumarate Neb 20 Mcg/2 Ml) 20 mcg INH RTBID [facility] Ceftriaxone Sodium 1 gm/ (Sodium Chloride) 100 mls @ 200 mls/hr IV Q24H [facility] Azithromycin 500 mg/ Sodium (Chloride) 250 mls @ 250 mls/hr IV Q24H [facility] Stop: 12/03/20 20:59 Remdesivir 200 mg/ Sodium (Chloride) 100 mls @ 0 mls/hr IV ONCE [facility] Ascorbic Acid 100 mg/ Dextrose 50.2 mls @ 200 mls/hr IV DAILY [facility] Lorazepam (Lorazepam 2 Mg/Ml Vial) 0.5 mg IVP Q2H PRN PRN Reason: Anxiety Ondansetron HCl (Ondansetron Odt 4 Mg Tablet) 4 mg TL Q6HR PRN PRN Reason: Nausea / Vomiting Ondansetron HCl (Ondansetron 4 Mg/2 Ml Vial) 4 mg IVP Q6HR PRN PRN Reason: Nausea / Vomiting Sodium Chloride (Sodium Chloride Flush 0.9% 10 Ml Syringe) 10 ml IVP 0100,0900 ,1700 [facility] Last Admin: 11/30/20 00:11 Dose: Not Given Documented by: Sodium Chloride (Sodium Chloride Flush 0.9% 10 Ml Syringe) 10 ml IVP PRN PRN PRN Reason: NEEDED PER PROVIDER ORDERS Last Admin: 11/29/20 23:38 Dose: 10 ml Documented by: Albuterol 2.5 mg INH DAILY PRN 04/15/13 Aspirin 81 mg PO DAILY 04/15/13 Atorvastatin Calcium [Lipitor] 20 mg PO DAILY 04/15/13 Gabapentin [Neurontin] 1,200 mg PO HS 04/15/13 Gabapentin [Neurontin] 300 mg PO BID 04/15/13 Montelukast Sodium [Singulair] 10 mg PO DAILY 04/15/13 Fluticasone Propionate [Flonase Allergy Relief] 2 spray JACQUELINE DAILY 05/26/15 Fluticasone/Salmeterol [Advair 500-50 Diskus] 1 inh INH BID 05/27/15 Tiotropium [place] [Spiriva] 1 tab INH QDBREAKFAST 05/27/15 HYDROcod/ACETAM 5/325 [Vicodin 5/325] 1 tab PO Q6H PRN 10/28/15 diltiaZEM [Cardizem] 120 mg PO DAILY 09/16/17 Loratadine [Claritin] 10 mg PO DAILY 11/29/20 Losartan Potassium 50 mg PO DAILY 11/29/20 Pantoprazole [Protonix] 40 mg PO BID 11/29/20 Objective - Vital Signs/Intake & Output Reviewed Vital Signs: Yes Vital Signs: Vital Signs Temp Pulse Pulse Resp BP BP Pulse Ox 11/30/20 03:00 37 H 125/70 88 L 11/30/20 02:30 90 36 H 11/30/20 02:00 90 33 H 118/80 94 11/30/20 01:30 93 48 H 11/30/20 01:25 96 32 H 11/30/20 01:20 88 42 H 11/30/20 01:15 89 43 H 11/30/20 01:10 88 43 H 11/30/20 01:05 89 39 H 11/30/20 01:01 88 35 H 107/66 11/30/20 01:00 88 88 34 H 107/66 92 11/30/20 00:55 89 42 H 11/30/20 00:50 90 35 H 11/30/20 00:45 90 42 H 11/30/20 00:40 91 36 H 11/30/20 00:35 91 41 H 11/30/20 00:30 89 39 H 11/30/20 00:25 89 37 H 11/30/20 00:20 89 35 H 11/30/20 00:15 90 41 H 11/30/20 00:10 89 37 H 11/30/20 00:05 91 40 H 11/30/20 00:01 90 43 H 113/70 11/30/20 00:00 36.8 C 91 91 37 H 113/70 92 11/29/20 23:55 91 39 H 11/29/20 23:50 94 39 H 11/29/20 23:45 93 41 H 11/29/20 23:40 92 39 H 11/29/20 23:35 92 41 H 11/29/20 23:30 91 36 H Intake & Output: Intake & Output 11/27/20 11/28/20 11/29/20 11/30/20 23:59 23:59 23:59 23:59 Intake Total 450 Balance 450 - Objective General Appearance: positive: Severe distress, Other (Tachypneic.. Laying back at about 45 to 50 degrees.) Respiratory: positive: Rhonchi, Other (Tachypneic. Struggling to breathe.) Cardiovascular: positive: Regular rate & rhythm. negative: Tachycardia, Gallop/S4, Friction rub Abdomen: positive: Non-tender, No organomegaly, Nml bowel sounds, No distention Skin: positive: Warm, Dry Extremities: positive: Full ROM, No pedal edema Neurologic/Psychiatric: positive: CN's nml (2-12), Motor nml, Disoriented to time - Lab Results Fish Bones: 11/29/20 18:41 11/29/20 18:41 Other Labs: Lab Results x24hrs 11/29/20 11/29/20 11/29/20 Range/Units 21:15 18:41 18:41 WBC (4.8-10.8) x10^3/uL RBC (4.20-5.40) 10^6/uL Hgb (12.0-16.0) g/dL Hct (37.0-47.0) % MCV (81.0-99.0) fL MCH (27.0-31.0) pg MCHC (32.0-36.0) g/dL RDW (12.0-15.0) % Plt Count (130-450) 10^3/uL MPV (7.9-10.8) fL Neut # (Auto) (1.5-6.6) 10^3/uL Lymph # (Auto) (1.5-3.5) 10^3/uL Gage # (Auto) (0.0-1.0) 10^3/uL Eos # (Auto) (0.0-0.7) 10^3/uL Baso # (Auto) (0.0-0.1) 10^3/uL Absolute Nucleated RBC x10^3/uL Nucleated RBC % /100WBC PT (9.9-12.6) secs INR (0.8-1.2) VBG pH 7.406 (7.31-7.41) VBG pCO2 34.4 L (41-51) mmHg VBG pO2 26.2 (25-47) mmHg VBG HCO3 21.1 L (23-28) mmol/L VBG Total CO2 22.2 L (24-29) mmol/L VBG O2 Saturation 48.7 L (60-80) % VBG Base Excess -2.8 L (-2 - +2) mmol/L Sodium (135-145) mmol/L Potassium (3.5-5.0) mmol/L Chloride (101-111) mmol/L Carbon Dioxide (21-32) mmol/L Anion Gap (6-13) BUN (6-20) mg/dL Creatinine (0.4-1.0) mg/dL Estimated GFR (MDRD) (>89) Glucose (70-100) mg/dL Lactic Acid 2.3 H (0.5-2.2) mmol/L Calcium (8.5-10.3) mg/dL Magnesium (1.7-2.8) mg/dL Total Bilirubin (0.2-1.0) mg/dL AST (10-42) IU/L ALT (10-60) IU/L Alkaline Phosphatase (42-121) IU/L Troponin I High Sens (2.3-14.8) ng/L Total Protein (6.7-8.2) g/dL Albumin (3.2-5.5) g/dL Globulin (2.1-4.2) g/dL Albumin/Globulin Ratio (1.0-2.2) Nasal Screen MRSA (PCR) NEGATIVE (NEGATIVE) 11/29/20 11/29/20 11/29/20 Range/Units 18:41 18:41 18:41 WBC (4.8-10.8) x10^3/uL RBC (4.20-5.40) 10^6/uL Hgb (12.0-16.0) g/dL Hct (37.0-47.0) % MCV (81.0-99.0) fL MCH (27.0-31.0) pg MCHC (32.0-36.0) g/dL RDW (12.0-15.0) % Plt Count (130-450) 10^3/uL MPV (7.9-10.8) fL Neut # (Auto) (1.5-6.6) 10^3/uL Lymph # (Auto) (1.5-3.5) 10^3/uL Gage # (Auto) (0.0-1.0) 10^3/uL Eos # (Auto) (0.0-0.7) 10^3/uL Baso # (Auto) (0.0-0.1) 10^3/uL Absolute Nucleated RBC x10^3/uL Nucleated RBC % /100WBC PT 15.4 H (9.9-12.6) secs INR 1.4 H (0.8-1.2) VBG pH (7.31-7.41) VBG pCO2 (41-51) mmHg VBG pO2 (25-47) mmHg VBG HCO3 (23-28) mmol/L VBG Total CO2 (24-29) mmol/L VBG O2 Saturation (60-80) % VBG Base Excess (-2 - +2) mmol/L Sodium 139 (135-145) mmol/L Potassium 3.4 L (3.5-5.0) mmol/L Chloride 100 L (101-111) mmol/L Carbon Dioxide 21 (21-32) mmol/L Anion Gap 18.0 H (6-13) BUN 24 H (6-20) mg/dL Creatinine 1.2 H (0.4-1.0) mg/dL Estimated GFR (MDRD) 45 L (>89) Glucose 156 H (70-100) mg/dL Lactic Acid (0.5-2.2) mmol/L Calcium 9.0 (8.5-10.3) mg/dL Magnesium 2.0 (1.7-2.8) mg/dL Total Bilirubin 1.3 H (0.2-1.0) mg/dL AST 198 H (10-42) IU/L ALT 166 H (10-60) IU/L Alkaline Phosphatase 189 H (42-121) IU/L Troponin I High Sens 18.2 H* (2.3-14.8) ng/L Total Protein 7.6 (6.7-8.2) g/dL Albumin 3.3 (3.2-5.5) g/dL Globulin 4.3 H (2.1-4.2) g/dL Albumin/Globulin Ratio 0.8 L (1.0-2.2) Nasal Screen MRSA (PCR) (NEGATIVE) 11/29/20 Range/Units 18:41 WBC 13.8 H (4.8-10.8) x10^3/uL RBC 4.45 (4.20-5.40) 10^6/uL Hgb 13.7 (12.0-16.0) g/dL Hct 40.7 (37.0-47.0) % MCV 91.5 (81.0-99.0) fL MCH 30.8 (27.0-31.0) pg MCHC 33.7 (32.0-36.0) g/dL RDW 12.9 (12.0-15.0) % Plt Count 273 (130-450) 10^3/uL MPV 9.6 (7.9-10.8) fL Neut # (Auto) 12.3 H (1.5-6.6) 10^3/uL Lymph # (Auto) 0.7 L (1.5-3.5) 10^3/uL Gage # (Auto) 0.6 (0.0-1.0) 10^3/uL Eos # (Auto) 0.1 (0.0-0.7) 10^3/uL Baso # (Auto) 0.0 (0.0-0.1) 10^3/uL Absolute Nucleated RBC 0.00 x10^3/uL Nucleated RBC % 0.0 /100WBC PT (9.9-12.6) secs INR (0.8-1.2) VBG pH (7.31-7.41) VBG pCO2 (41-51) mmHg VBG pO2 (25-47) mmHg VBG HCO3 (23-28) mmol/L VBG Total CO2 (24-29) mmol/L VBG O2 Saturation (60-80) % VBG Base Excess (-2 - +2) mmol/L Sodium (135-145) mmol/L Potassium (3.5-5.0) mmol/L Chloride (101-111) mmol/L Carbon Dioxide (21-32) mmol/L Anion Gap (6-13) BUN (6-20) mg/dL Creatinine (0.4-1.0) mg/dL Estimated GFR (MDRD) (>89) Glucose (70-100) mg/dL Lactic Acid (0.5-2.2) mmol/L Calcium (8.5-10.3) mg/dL Magnesium (1.7-2.8) mg/dL Total Bilirubin (0.2-1.0) mg/dL AST (10-42) IU/L ALT (10-60) IU/L Alkaline Phosphatase (42-121) IU/L Troponin I High Sens (2.3-14.8) ng/L Total Protein (6.7-8.2) g/dL Albumin (3.2-5.5) g/dL Globulin (2.1-4.2) g/dL Albumin/Globulin Ratio (1.0-2.2) Nasal Screen MRSA (PCR) (NEGATIVE) Assessment/Plan - Problem List (1) Pneumonia due to COVID-19 virus Impression: This is the control clerk head 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 She is on empiric antibiotics with Rocephin and azithromycin. Due to pharmacy policy she has not received her remdesivir but will receive it in a few hours. Day #2 of steroids. Plan: Continue current plan with steroids, antibiotics, remdesivir as well as respiratory support (2) Acute respiratory failure with hypoxia Impression: Unfortunately, after initial stabilization, appears to be taking a subtle turn for the worse. I do not think she can maintain her tachypnea for much longer and work of breathing is exhausting her. O2 sats are starting to drop. Plan: She and her have both stated they want her to be fully resuscitated. As such will do intubation. I have already spoken to anesthesia (3) Asthma with acute exacerbation Impression: Her asthma is most likely the reason most of her morbidity with Covid is so severe. But on exam does not have severe wheezing. We will still continue regular dose DuoNeb. As needed albuterol. Long-acting bronchodilator. Long-acting steroid. And IV steroids. Qualifiers: Asthma severity: severe (4) Hypertension Impression: Continues to be normotensive. Still holding off on her blood pressure medications until she becomes consistently hypertensive. I do not want to give her medications at this time in view of her critical illness. If she bottoms out her blood pressure, giving her blood pressure medicines with her delayed effect will not be helpful. Qualifiers: Hypertension type: essential hypertension Qualified Code(s): I10 - Essential (primary) hypertension (5) Hypokalemia Impression: Supplemented last night. This morning's labs will be drawn in a couple of hours under pending. Those will be reviewed and supplemented again if necessary. (6) OLI (acute kidney injury) Impression: Again, this was present on last night's labs. This morning's labs have been yet to be drawn. Those will be reviewed. (7) Hyperglycemia Impression: Most likely secondary to steroid use. If glucose is elevated consistently, she will be placed on sliding scale insulin.
[2020-11-30] MEDS ORDERED: ROCURONIUM 50 MG/5 ML VIAL ONE (03:43)
[2020-11-30] MEDS ORDERED: PROPOFOL 200 MG/20 ML VIAL IVP ONE (03:44)
[2020-11-30] MEDS: PROPOFOL 500 MG/50 ML 500 MG/50 ML VIAL IV SCH ×11 (04:12→22:04)
--- NOTE | 2020-11-30 04:46 | ANESTHESIA PROCEDURE NOTE ---
Anesthesia Intubation Template - Intubation Blade: positive: Glidescope Tube: Size-enter number (7.5), Cuffed, Marked at teeth-enter cm (22) Route: Oral Placement Confirmation: End tidal CO2, Direct visualization (glide), Bilateral breath sounds Complications: No complications (Propofol 100mg IV, Rocuronium 40mg IV)
--- NOTE | 2020-11-30 04:48 | ANESTHESIA PROCEDURE NOTE ---
Anesth Central Line Template - Central Line Central Line Preparation: Unable to obtain consent, Time out completed, Ultra sound used, Sterile prep and drape Central line location: Right IJ Central line type: Triple lumen Central line catheter tip site resides: Superior vena cava (SVC) Central line aftercare: Chlorhexidine disc placed, Secured, Placement confirmed, No pneumothorax, No complications, Bundle checklist complete, Pt tolerated well (sedated) Other Info/Details: Caps placed x3, easily aspirate and flush x3. Secured with suture x3, tegaderm. PCXR used to confirm placement. OK to use CVL.
[2020-11-30 05:29] LABS: BASOPHILS % (AUTO) 0.2 %; EOSINOPHILS % (AUTO) 0.1 %; HCT - HEMATOCRIT 37.9 % (37.0-47.0); HGB - HEMOGLOBIN 12.6 g/dL (12.0-16.0); LYMPHOCYTES % (AUTO) 2.6 %; MEAN CORPUSCULAR HEMOGLOBIN 30.7 pg (27.0-31.0); MEAN CORPUSCULAR HGB CONC 33.2 g/dL (32.0-36.0); MEAN CORPUSCULAR VOLUME 92.2 fL (81.0-99.0); MEAN PLATELET VOLUME 9.8 fL (7.9-10.8); MONOCYTES % (AUTO) 2.4 %; NEUTROPHILS % (AUTO) 92.8 %; PLT - PLATELET COUNT 291 10^3/uL (130-450); RED BLOOD COUNT 4.11 10^6/uL (4.20-5.40); WHITE BLOOD COUNT 18.9 x10^3/uL (4.8-10.8)
[2020-11-30 05:32] LABS: ABNORMAL LYMPHS % (MANUAL) 0 %
[2020-11-30 05:33] LABS: ABG BASE EXCESS -4.9 mmol/L (-2.0-3.0); ABG HCO3 20.1 mmol/L (22.0-26.0); ABG MODE OF VENTILATION SIMV; ABG OXYGEN SATURATION 89 % (94-98); ABG PCO2 37 mmHg (34-45); ABG PH 7.35 (7.35-7.45); ABG PO2 63 mmHg (80-100); ABG RESPIRATORY RATE 16 b/min; ABG TCO2 21.3 MMOL/L (21.0-29.0); ALLEN TEST POSITIVE
[2020-11-30 05:37] LABS: CALCIUM 8.4 mg/dL (8.5-10.3); CREATININE 1.4 mg/dL (0.4-1.0); MAGNESIUM 2.2 mg/dL (1.7-2.8); PHOSPHORUS 4.9 mg/dL (2.5-4.6); POTASSIUM 3.2 mmol/L (3.5-5.0)
[2020-11-30 05:54] LABS: BAND NEUTROPHILS % (MANUAL) 4 %; LYMPHOCYTES # (MANUAL) 1.1 10^3/uL (1.5-3.5); LYMPHOCYTES % (MANUAL) 6 %; NEUTROPHILS # (MANUAL) 17.8 10^3/uL (1.5-6.6)
[2020-11-30 05:55] LABS: DIFFERENTIAL COMMENT MANUAL DIFFERENTIAL; PLATELET ESTIMATE, MANUAL NORMAL (130-450,000) (NORMAL); PLATELET MORPHOLOGY NORMAL APPEARANCE (NORMAL); RBC MORPHOLOGY (MULTIPLE) NORMAL APPEARANCE (NORMAL); WBC MORPHOLOGY (MULTIPLE) NORMAL APPEARANCE (NORMAL)
[2020-11-30] MEDS: POTASSIUM CHLOR 20 MEQ/100 ML 20 MEQ/100 ML BAG IV SCH ×2 (06:27→07:27)
[2020-11-30] MEDS: PANTOPRAZOLE 40 MG VIAL IVP SCH (06:29)
[2020-11-30] MEDS: DEXMEDETOMIDINE 400 MCG/100 ML 100 ML IV SCH ×7 (06:32→22:35)
[2020-11-30] MEDS ORDERED: [UNRECOGNIZED DRUG - OTHER] IV SCH (07:00)
[2020-11-30] MEDS ORDERED: SODIUM CHLORIDE 0.9% IV SCH (07:00)
[2020-11-30] MEDS ORDERED: MIDAZOLAM 2 MG/2 ML VIAL ONE (07:09)
[2020-11-30] MEDS ORDERED: diltiaZEM INJ 5 MG/ML VIAL IVP ONE ×3 (07:20→16:36)
[2020-11-30] MEDS: FORMOTEROL FUMARATE NEB 20 MCG/2 ML INH SCH ×2 (07:40→18:10)
[2020-11-30] MEDS: BUDESONIDE 0.5 MG/2 ML NEB INH SCH ×2 (07:40→18:10)
[2020-11-30] MEDS: IPRATROPIUM/ALBUTEROL 3 ML NEB INH SCH ×4 (07:40→18:10)
--- NOTE | 2020-11-30 08:28 | XRAY Report ---
PROCEDURE: Chest for Line Placement INDICATIONS: new ETT, CVL, NGT TECHNIQUE: One view of the chest was acquired. COMPARISON: 11/29/2020 FINDINGS: Right internal jugular central venous catheter with the tip projecting at the upper SVC. Enteric tube is present with the tip below the GE junction. Endotracheal tube present with the tip projecting 4 c m above the jabari. No pneumothorax. No definite pleural effusion. Bilateral upper and lower lobe ill-defined and patchy consolidative opacities. Mediastinum: Mediastinal contours appear normal. Heart size is normal. Bones and chest wall: No suspicious bony lesions. Overlying soft tissues appear unremarkable. IMPRESSION: Bilateral multifocal pneumonia. Supportive equipment as above Findings are concordant with the preliminary study interpretation provided at the time of the study. Reviewed by: Hubert Farley MD on 11/30/2020 8:27 AM PST Approved by: Hubert Farley MD on 11/30/2020 8:27 AM PST Station ID: [id number]
[2020-11-30] MEDS: CEFEPIME 2 GM in SODIUM CHLORIDE 0.9% MINIBAG 100 ML IV SCH ×3 (08:34→21:20)
[2020-11-30] MEDS: ENOXAPARIN 80 MG/0.8 ML SYRINGE SUBQ SCH (08:35)
[2020-11-30] MEDS: CHLORHEXIDINE GLUCONATE 15 ML UDC PO SCH ×2 (08:35→20:28)
[2020-11-30] MEDS: DEXAMETHASONE 4 MG/ML VIAL IVP SCH (08:44)
--- NOTE | 2020-11-30 08:48 | XRAY Report ---
PROCEDURE: Chest for Line Placement INDICATIONS: ETT and NG placement TECHNIQUE: One view of the chest was acquired. COMPARISON: Prior chest plain films 11/29/2020 and 11/30/2020. FINDINGS: Surgical changes and devices: Esophagogastric tube extends below the imaging margin. Right internal j ugular central line extends to approximately the azygos arch level of the superior vena cava region. Endotracheal tube has advanced approximately 2 cm below the medial clavicular head axial level.. Lungs and pleura: No pleural effusions or pneumothorax. Lungs are diffusely abnormal with a relativ xi severe alveolar infiltration pattern throughout, as has been previously the case.. Mediastinum: Mediastinal contours appear normal. Heart size is normal. Bones and chest wall: No suspicious bony lesions. Overlying soft tissues appear unremarkable. IMPRESSION: The endotracheal tube appears to have advanced approximately 2 cm inferiorly towards the jabari, now 2 cm below the lower margin of the medial clavicular head axial level. Otherwise the study is unchang ed, with generalized moderately severe to severe alveolar infiltration. Reviewed by: Gurvinder Vital MD on 11/30/2020 8:47 AM PST Approved by: Gurvinder Vital MD on 11/30/2020 8:47 AM PST Station ID: [id number]
[2020-11-30] MEDS ORDERED: ENOXAPARIN 40 MG/0.4 ML SYRINGE SUBQ SCH (09:00)
[2020-11-30] MEDS ORDERED: DEXTROSE 5% IV SCH (09:00)
[2020-11-30] MEDS ORDERED: ASCORBIC ACID IV SCH ×2 (09:00)
[2020-11-30] MEDS ORDERED: LACTATED RINGERS 1,000 ML IV ONE (10:18)
[2020-11-30] MEDS: diltiaZEM INJ 5 MG/ML VIAL IVP ONE ×2 (10:22→16:59)
[2020-11-30] MEDS: ACETAMINOPHEN 1,000 MG/100 ML 100 ML IV PRN ×2 (10:41→22:40)
[2020-11-30] MEDS ORDERED: ENOXAPARIN 30 MG/0.3 ML SYRINGE SUBQ ONE (11:00)
[2020-11-30 11:26] LABS: ABG HCO3 18.7 mmol/L (22.0-26.0); ABG PCO2 27 mmHg (34-45); ABG PH 7.45 (7.35-7.45); ABG PO2 62 mmHg (80-100)
[2020-11-30 11:27] LABS: ABG BASE EXCESS -3.9 mmol/L (-2.0-3.0); ABG MODE OF VENTILATION ASSIST/CONTROL; ABG OXYGEN SATURATION 92 % (94-98); ABG RESPIRATORY RATE 20 b/min; ABG TCO2 19.5 MMOL/L (21.0-29.0); ALLEN TEST POSITIVE
[2020-11-30] MEDS ORDERED: METOPROLOL 5 MG/5 ML VIAL IVP SCH (13:00)
--- NOTE | 2020-11-30 13:31 | PHARMACY PROGRESS NOTE ---
- Best Possible Medication History Admit Date and Time: 11/29/201900 Processed by: Nursing Medication History completed: Yes Patient Interview: Pt unable to participate Secondary Source(s): Pharmacy records, Insurance records As the person ultimately responsible for medication therapy, providers are able to order a medication from an existing home medication list in [facility] via the "Reconcile Routine" prior to Confirmation of that medication by wind farm support specialist. Such practice is discouraged except when the physician, in their clinical judgment, deems that a medical need exists for a medication without regard to previous use.
[2020-11-30 15:26] LABS: ABG HCO3 18.3 mmol/L (22.0-26.0); ABG OXYGEN SATURATION 93 % (94-98); ABG PCO2 26 mmHg (34-45); ABG PH 7.46 (7.35-7.45); ABG PO2 67 mmHg (80-100); ABG TCO2 19.1 MMOL/L (21.0-29.0)
[2020-11-30 15:27] LABS: ABG MODE OF VENTILATION ASSIST/CONTROL; ABG RESPIRATORY RATE 20 b/min; ALLEN TEST POSITIVE
[2020-11-30] MEDS ORDERED: SODIUM CHLORIDE 0.9% 500 ML IV ONE ×2 (15:52→20:45)
[2020-11-30] MEDS ORDERED: VANCOMYCIN INJ 2 GM in SODIUM CHLORIDE 0.9% 500 ML IV SCH (16:00)
--- NOTE | 2020-11-30 18:08 | PHARMACY PROGRESS NOTE ---
- Therapy Status Vancomycin regimen day #: 1 Therapy status: Awaiting steady state Basis for treatment: Empirical Treatment indication: Pneumonia, Gram positive blood culture Trough goal: 15-20 Concurrent antibiotics: cefepime, azithromycin - OLI Risk Risk level for Acute Kidney Injury: Moderate Acute Kidney Injury risk factors: Wt >100kg or BMI >40, Baseline BUN:SCr >20:1, Goal trough >15, Admission to ICU, Acute hypotensive event - Monitoring and Recommendation Clinical response to treatment: I&O Previous 24 hours 11/28/20 11/29/20 11/30/20 23:59 23:59 23:59 Intake Total 450 2187.636 Output Total 1642 Balance 450 545.636 Lab Results 11/30/20 11/29/20 05:12 18:41 BUN 30 H 24 H Creatinine 1.4 H 1.2 H Estimated GFR (MDRD) 38 L 45 L Cultures 11/29/20 18:31 Blood Blood Culture (PCR) - Final 11/29/20 18:31 Blood Blood Culture - Preliminary Monitoring plan: Daily serum creatinine Next trough due prior to maintenance dose #: 3 Next trough due (date/time): 12/02 at 1530 Areas for additional monitoring: IV to PO when appropriate, Therapy de- escalation based on culture results Pharmacy recommendation: Continue current regime
[2020-11-30] MEDS ORDERED: cefTRIAXone 1 GM in SODIUM CHLORIDE 0.9% MINIBAG 100 ML IV SCH (19:00)
[2020-11-30] MEDS: AZITHROMYCIN INJ 500 MG in SODIUM CHLORIDE 0.9% 250 ML IV SCH (19:55)
[2020-11-30] MEDS: diltiaZEM INJ 125 MG in DEXTROSE 5% 100 ML IV SCH (21:01)
[2020-12-01] MEDS: SODIUM CHLORIDE FLUSH 0.9% 10 ML SYRINGE IVP SCH ×3 (00:30→17:30)
[2020-12-01] MEDS: PROPOFOL 500 MG/50 ML 500 MG/50 ML VIAL IV SCH ×5 (01:04→08:52)
[2020-12-01] MEDS: DEXMEDETOMIDINE 400 MCG/100 ML 100 ML IV SCH ×9 (01:07→22:34)
[2020-12-01] MEDS: ALBUTEROL NEB 2.5 MG/3 ML INH PRN (04:38)
[2020-12-01] MEDS: ACETAMINOPHEN 1,000 MG/100 ML 100 ML IV PRN ×3 (04:59→20:05)
[2020-12-01] MEDS: LORazepam 2 MG/ML VIAL IVP PRN (05:04)
[2020-12-01] MEDS: CEFEPIME 2 GM in SODIUM CHLORIDE 0.9% MINIBAG 100 ML IV SCH ×3 (05:36→21:39)
[2020-12-01 05:41] LABS: BASOPHILS % (AUTO) 0.2 %; HCT - HEMATOCRIT 36.6 % (37.0-47.0); HGB - HEMOGLOBIN 12.3 g/dL (12.0-16.0); LYMPHOCYTES # (AUTO) 0.9 10^3/uL (1.5-3.5); LYMPHOCYTES % (AUTO) 4.3 %; MEAN CORPUSCULAR HGB CONC 33.6 g/dL (32.0-36.0); MEAN CORPUSCULAR VOLUME 92.2 fL (81.0-99.0); MEAN PLATELET VOLUME 9.7 fL (7.9-10.8); MONOCYTES # (AUTO) 0.9 10^3/uL (0.0-1.0); MONOCYTES % (AUTO) 4.3 %; NEUTROPHILS # (AUTO) 17.6 10^3/uL (1.5-6.6); NEUTROPHILS % (AUTO) 88.4 %; NRBC ABSOLUTE COUNT (AUTO) 0.02 x10^3/uL; NUCLEATED RED BLOOD CELLS AUTO 0.1 /100WBC; PLT - PLATELET COUNT 321 10^3/uL (130-450); RED BLOOD COUNT 3.97 10^6/uL (4.20-5.40); RED CELL DISTRIBUTION WIDTH 13.3 % (12.0-15.0); WHITE BLOOD COUNT 19.9 x10^3/uL (4.8-10.8)
[2020-12-01 06:00] LABS: ALBUMIN 2.7 g/dL (3.2-5.5); BILIRUBIN,DIRECT 0.3 mg/dL (0.1-0.5); BILIRUBIN,TOTAL 0.9 mg/dL (0.2-1.0); CALCIUM 8.3 mg/dL (8.5-10.3); MAGNESIUM 2.3 mg/dL (1.7-2.8); PHOSPHORUS 2.7 mg/dL (2.5-4.6); POTASSIUM 3.9 mmol/L (3.5-5.0); TOTAL PROTEIN 6.7 g/dL (6.7-8.2)
[2020-12-01] MEDS: PANTOPRAZOLE 40 MG VIAL IVP SCH (06:06)
--- NOTE | 2020-12-01 06:51 | Ultrasound Report ---
PROCEDURE: Duplex Ext Veins Bilateral INDICATIONS: Lower extremity edema. Hypoxia. TECHNIQUE: Real-time imaging, as well as color and pulse Doppler interrogation, were performed of the deep veins of both legs from the inguinal ligament to the popliteal fossa. COMPARISON: None FINDINGS: The deep veins of the right and left lower extremities are normally compressible, and free of intraluminal thrombus. Color and pulse Doppler demonstrate normal phasic intravascular flow in t he deep veins of the right and left lower extremities. There is normal augmentation response to dist al compression maneuver in the deep veins of the right and left lower extremities. IMPRESSION: No evidence of deep vein thrombosis involving of the right and left lower extremities. Reviewed by: Stefany Anderson MD, PhD on 12/01/2020 6:50 AM PST Approved by: Stefany Anderson MD, PhD on 12/01/2020 6:50 AM PST Station ID: [id number]
[2020-12-01] MEDS: BUDESONIDE 0.5 MG/2 ML NEB INH SCH ×2 (07:50→19:00)
[2020-12-01] MEDS: IPRATROPIUM/ALBUTEROL 3 ML NEB INH SCH ×4 (07:50→19:00)
[2020-12-01] MEDS: FORMOTEROL FUMARATE NEB 20 MCG/2 ML INH SCH ×2 (07:50→19:00)
[2020-12-01] MEDS ORDERED: ROCURONIUM 50 MG/5 ML VIAL ONE (08:43)
[2020-12-01] MEDS: CHLORHEXIDINE GLUCONATE 15 ML UDC PO SCH ×2 (09:18→21:39)
--- NOTE | 2020-12-01 09:41 | XRAY Report ---
PROCEDURE: Post ET Tube 1V CXR INDICATIONS: REINTUBATION TECHNIQUE: One view of the chest was acquired. COMPARISON: Chest x-ray 11/30/2020. FINDINGS: Surgical changes and devices: Endotracheal tube is approximately 2.9 cm superior to the jabari. Nasog astric tube projects below the hemidiaphragm on the left. Lungs and pleura: There is persistent appearance of bilateral pulmonary opacities without interval ch raj. Mediastinum: Mediastinal contours appear normal. Heart size is normal. Bones and chest wall: No suspicious bony lesions. Overlying soft tissues appear unremarkable. IMPRESSION: Endotracheal tube as above. Unchanged appearance of bilateral pulmonary opacities most consistent with pneumonia. Reviewed by: Nilda Verma MD on 12/01/2020 8:40 AM [facility] Approved by: Nilda Verma MD on 12/01/2020 8:40 AM [facility] Station ID: [id number]
[2020-12-01] MEDS ORDERED: fentaNYL 2,500 MCG in SODIUM CHLORIDE 0.9% 200 ML IV SCH ×4 (10:00)
[2020-12-01] MEDS: fentaNYL 2,500 MCG/250 ML 2,500 MCG/250 ML BAG IV SCH ×4 (10:11→22:30)
[2020-12-01] MEDS ORDERED: SODIUM CHLORIDE 0.9% 500 ML IV ONE (10:30)
[2020-12-01] MEDS ORDERED: fentaNYL 100 MCG/2 ML VIAL ONE (10:32)
[2020-12-01] MEDS ORDERED: MIDAZOLAM 2 MG/2 ML VIAL ONE (10:32)
[2020-12-01] MEDS ORDERED: PROPOFOL 200 MG/20 ML VIAL IVP ONE (10:33)
[2020-12-01] MEDS: DEXAMETHASONE 4 MG/ML VIAL IVP SCH (10:50)
--- NOTE | 2020-12-01 10:52 | ANESTHESIA PROCEDURE NOTE ---
Anesthesia Intubation Template - Intubation Blade: positive: Glidescope (3) Tube: Size-enter number (7.5), Cuffed, Marked at teeth-enter cm (22) Route: Oral Placement Confirmation: End tidal CO2, Direct visualization (glidescope), Bilateral breath sounds Complications: No complications (Call to ICU for suspected cuff leak. Multiple attempts to keep ETT cuff inflated without leak. NGT to suction. ETT removed after Rocuronium 40mg IV. Glidescope3 to view of 1. 7.5ETT placed, cuff up, to 22@teeth, BBS,+ETCO2, secured, to vent. VSS.)
[2020-12-01] MEDS: SODIUM CHLORIDE FLUSH 0.9% 10 ML SYRINGE IVP PRN (10:54)
--- NOTE | 2020-12-01 10:56 | ANESTHESIA PROCEDURE NOTE ---
Diagnosis: COVID, hypoxemia, tachypnea, need for ABGs w/mechanical ventilation Procedure: R radial arterial line placement Consent for Procedure(s) Verified and Reviewed: No Height and Weight: Height 5 ft 9 in Weight (kg) 116 kg Body Mass Index 36.4 Vital Signs: Temp Pulse Resp BP Pulse Ox 39 C H 79 20 140/89 H 91 L 12/01/20 09:00 12/01/20 09:00 12/01/20 09:00 12/01/20 09:00 12/01/20 09:00 Allergies adhesive Adverse Reaction (Severe, Verified 09/24/20 01:17) Blisters Most adhesives, including adhesive from electrodes. Tolerates silk and nylon tapes. codeine [Codeine] Adverse Reaction (Mild, Verified 09/24/20 01:17) Cramps adhesive tape Adverse Reaction (Verified 12/01/20 10:35) Rash Fish Containing Products Adverse Reaction (Verified 09/24/20 01:17) Nausea Location: ICU 2303 ASA classification: 4-Incapacitating disease Is this case an emergency?: Yes Anes. Monitoring and Equipment: Non-invasive BP Anes. Procedure Start Time: 10:30 Anes. Procedure Stop Time: 10:50 Procedure Notes: Call for Frannie placement. Pt coughing, thrashing about in bed, sedation being adjusted. Versed 2mg, Fentanyl 100mcg, Propofol 50 mg IV for procedure. R arm extended and secured with tape to bed in supinated postion. R radial area prepped with chloroprep. Pulse palpable. 20ga cath placed to artery attemptx1. To A line transducer, good tracing. Secured. Calibration per RN.
[2020-12-01] MEDS: ENOXAPARIN 40 MG/0.4 ML SYRINGE SUBQ SCH (10:57)
[2020-12-01 11:48] LABS: ABG BASE EXCESS -5.3 mmol/L (-2.0-3.0); ABG HCO3 18.2 mmol/L (22.0-26.0); ABG OXYGEN SATURATION 95 % (94-98); ABG PCO2 29 mmHg (34-45); ABG PH 7.41 (7.35-7.45); ABG PO2 76 mmHg (80-100); ABG TCO2 19.1 MMOL/L (21.0-29.0)
[2020-12-01 11:49] LABS: ABG MODE OF VENTILATION ASSIST/CONTROL; ABG RESPIRATORY RATE 20 b/min
[2020-12-01] MEDS: SODIUM CHLORIDE 0.9% 500 ML IV PRN (12:44)
[2020-12-01 13:29] LABS: ABG HCO3 16.9 mmol/L (22.0-26.0); ABG OXYGEN SATURATION 92 % (94-98); ABG PCO2 29 mmHg (34-45); ABG PH 7.38 (7.35-7.45); ABG PO2 70 mmHg (80-100); ABG TCO2 17.8 MMOL/L (21.0-29.0)
[2020-12-01 13:30] LABS: ABG MODE OF VENTILATION ASSIST/CONTROL; ABG RESPIRATORY RATE 18 b/min
--- NOTE | 2020-12-01 15:35 | PROVIDER PROGRESS NOTE ---
Assessment/Plan - Problem List (1) Acute respiratory failure with hypoxia Assessment/Plan: Unfortunately, after initial stabilization, she was still tachypnic and needed to be intubated 2 days ago. She then extubated herself yesterday and needed to be reintubated. This morning there was an air leak in the cuff, and Anesthesia had to reintubate her again this morning. Continue vent management and treating the pneumonia. If she is not extubated soon, will start ng feeds. (2) Pneumonia due to COVID-19 virus Assessment/Plan: Due to pharmacy policy she has not received Remdesivir. She is getting iv Decadron She will be put on prophylactic Lovenox dose, not therapeutic, since no DVT or PE. She was also put on empiric iv antibiotics with Rocephin and azithromycin for a CAP, which was then broadened to iv Azithro, Cefepime and Vanco. Today Vanco will be stopped since the Staph appears to be Epi (a contaminant) and she is MRSA neg on swab, and Pharmacy advised stopping Vanco. Continue ventilator support and pulm toilet. Will need to start proning, with help of Anesthesia. Continue isolation orders. (3) Asthma with acute exacerbation Impression: Her asthma may be the reason for most of her morbidity with Covid being so severe. But on exam does not have severe wheezing. We will still continue regular dose DuoNeb. As needed albuterol. Long-acting bronchodilator. Long-acting steroid. And IV steroids. (4) SVT She was put on iv Diltiazem drip at 5 mg/hr. This has suppressed any SVT. HR as low as 50-60 in NSR today. Will decrease or stop the iv Dilt drip. (5) Hypokalemia Supplemented last night. Will supplement again today. Follow BMP daily. (6) OLI (acute kidney injury) Slowly improving with iv hydration. (7) Hyperglycemia Most likely secondary to steroid use. If glucose is elevated consistently, she will be placed on sliding scale insulin. If she is not extubated soon, will start ng feeds. (8) Hx of essential Hypertension Continues to be normotensive. Still holding off on her blood pressure medications until she becomes consistently hypertensive. I do not want to give her medications at this time in view of her critical illness. If she bottoms out her blood pressure, giving her blood pressure medicines with her delayed effect will not be helpful. - Current Meds Current Meds: Current Medications Generic Name Dose Route Start Last Admin Trade Name Freq PRN Reason Stop Dose Admin Albuterol 2.5 mg 11/30/20 15:42 12/01/20 04:38 Albuterol Neb 2.5 Mg/3 Ml INH 2.5 mg Q4HR PRN Administration Dyspnea Albuterol/Ipratropium 3 ml 11/30/20 07:00 12/01/20 12:13 Ipratropium/Albuterol 3 Ml Neb INH 3 ml RTQID KEVEN Administration Budesonide 0.5 mg 11/30/20 07:00 12/01/20 07:50 Budesonide 0.5 Mg/2 Ml Neb INH 0.5 mg RTBID KEVEN Administration Chlorhexidine Gluconate 15 ml 11/30/20 09:00 12/01/20 09:18 Chlorhexidine Gluconate 15 Ml Udc PO 15 ml BID KEVEN Administration Dexamethasone 6 mg 11/30/20 09:00 12/01/20 10:50 Dexamethasone 4 Mg/Ml Vial IVP 6 mg DAILY KEVEN Administration Enoxaparin Sodium 40 mg 12/01/20 11:00 12/01/20 10:57 Enoxaparin 40 Mg/0.4 Ml Syringe SUBQ 40 mg DAILY KEVEN Administration Formoterol Fumarate 20 mcg 11/30/20 07:00 12/01/20 07:50 Formoterol Fumarate Neb 20 Mcg/2 Ml INH 20 mcg RTBID KEVEN Administration Azithromycin 500 mg/ Sodium 250 mls @ 250 mls/hr 11/30/20 20:00 11/30/20 21:05 Chloride IV 12/03/20 20:59 Infused Q24H KEVEN Infusion Dexmedetomidine/Sodium Chloride 100 mls @ 5.6 mls/hr 11/30/20 07:00 12/01/20 14:55 Precedex Premix IV 1.5 mcg/kg/hr .[id number] KEVEN 42 mls/hr Administration Protocol 0.2 MCG/KG/HR Cefepime HCl 2 gm/ Sodium 100 mls @ 200 mls/hr 11/30/20 08:00 12/01/20 14:32 Chloride IV Infused TID KEVEN Infusion Acetaminophen 100 mls @ 400 mls/hr 11/30/20 10:18 12/01/20 12:10 Ofirmev IV Infused Q6HR PRN Infusion Pain or Fever > 38C (100.4F) Diltiazem HCl 125 mg/ Dextrose 125 mls @ 5 mls/hr 11/30/20 20:00 11/30/20 21:01 IV 5 mg/hr .Q25H KEVEN 5 mls/hr Administration Protocol 5 MG/HR Fentanyl 2,500 mcg in 250 mls @ 11.6 mls/hr 12/01/20 10:00 12/01/20 14:56 Fentanyl IV 7 mcg/kg/hr .[id number] KEVEN 81.2 mls/hr Administration Protocol 1 MCG/KG/HR Sodium Chloride 500 mls @ 20 mls/hr 12/01/20 11:50 12/01/20 12:44 Normal Saline 0.9% IV 40 mls/hr Q24H PRN Administration TKO RATE Lorazepam 0.5 mg 11/29/20 22:39 12/01/20 05:04 Lorazepam 2 Mg/Ml Vial IVP 0.5 mg Q2H PRN Administration Anxiety Pantoprazole Sodium 40 mg 11/30/20 07:00 12/01/20 06:06 Pantoprazole 40 Mg Vial IVP 40 mg QDAC KEVEN Administration Sodium Chloride 10 ml 11/30/20 01:00 12/01/20 09:30 Sodium Chloride Flush 0.9% 10 Ml Syringe IVP 10 ml 0100,[id number],1700 KEVEN Administration Sodium Chloride 10 ml 11/29/20 19:01 12/01/20 10:54 Sodium Chloride Flush 0.9% 10 Ml Syringe IVP 10 ml PRN PRN Administration NEEDED PER PROVIDER ORDERS - Lab Result Fish Bone Diagrams: 12/01/20 05:30 12/01/20 05:30 - Additional Planning My Orders: My Active Orders 12/01/20 09:09 Arterial Line Care - ICU [RC] Q2HR Arterial Line Insertion - ICU [RC] .ONCE 12/01/20 10:00 fentaNYL 2,500 MCG/250 ML [fentaNYL] 2,500 mcg in 250 ml IV 1 mcg/kg/hr 12/01/20 11:00 Enoxaparin [Lovenox] 40 mg SUBQ DAILY 12/01/20 11:50 Sodium Chloride 0.9% [Normal Saline 0.9%] 500 ml IV Q24H 12/01/20 13:26 RT - Obtain Arterial Specimen [RC] .ONCE Subjective - Subjective Patient Reports: Other (Per RN, she is fidgity, despite iv sedative drip of Precedex, is better on additional Fentanyl.) Objective Vital Signs: Vital Signs - 24 hr 11/30/20 11/30/20 11/30/20 15:40 15:45 15:46 Temperature Heart Rate 78 78 78 Heart Rate [ Monitoring electrodes] Respiratory 25 H 27 H 26 H Rate Blood Pressure 127/75 Blood Pressure [Right Brachial artery] Blood Pressure [Right Radial artery] O2 Saturation 11/30/20 11/30/20 11/30/20 16:00 16:01 16:15 Temperature Heart Rate 84 86 153 H Heart Rate [ 151 H Monitoring electrodes] Respiratory 35 H 33 H 29 H Rate Blood Pressure 126/83 H Blood Pressure 125/93 H [Right Brachial artery] Blood Pressure [Right Radial artery] O2 Saturation 96 11/30/20 11/30/20 11/30/20 16:16 16:30 16:31 Temperature Heart Rate 154 H 152 H 152 H Heart Rate [ Monitoring electrodes] Respiratory 32 H 29 H 29 H Rate Blood Pressure 117/93 H 125/93 H Blood Pressure [Right Brachial artery] Blood Pressure [Right Radial artery] O2 Saturation 11/30/20 11/30/20 11/30/20 16:45 16:46 16:59 Temperature Heart Rate 151 H 151 H Heart Rate [ Monitoring electrodes] Respiratory 28 H 28 H Rate Blood Pressure 126/94 H 126/94 H Blood Pressure [Right Brachial artery] Blood Pressure [Right Radial artery] O2 Saturation 11/30/20 11/30/20 11/30/20 17:00 17:01 17:15 Temperature 38.9 C H Heart Rate 150 H 150 H 76 Heart Rate [ 77 Monitoring electrodes] Respiratory 28 H 28 H 28 H Rate Blood Pressure 125/99 H Blood Pressure 125/99 H [Right Brachial artery] Blood Pressure [Right Radial artery] O2 Saturation 95 11/30/20 11/30/20 11/30/20 17:16 17:30 17:31 Temperature Heart Rate 77 76 77 Heart Rate [ Monitoring electrodes] Respiratory 26 H 29 H 28 H Rate Blood Pressure 131/84 H 137/83 H Blood Pressure [Right Brachial artery] Blood Pressure [Right Radial artery] O2 Saturation 11/30/20 11/30/20 11/30/20 17:45 17:46 17:53 Temperature 38.8 C H Heart Rate 86 87 Heart Rate [ 91 Monitoring electrodes] Respiratory 31 H 30 H 29 H Rate Blood Pressure 131/78 H Blood Pressure 131/78 H [Right Brachial artery] Blood Pressure [Right Radial artery] O2 Saturation 100 11/30/20 11/30/20 11/30/20 18:00 18:01 18:10 Temperature Heart Rate 91 92 88 Heart Rate [ Monitoring electrodes] Respiratory 28 H 22 32 H Rate Blood Pressure 132/73 H Blood Pressure [Right Brachial artery] Blood Pressure [Right Radial artery] O2 Saturation 11/30/20 11/30/20 11/30/20 18:15 18:16 18:30 Temperature Heart Rate 89 86 83 Heart Rate [ Monitoring electrodes] Respiratory 30 H 30 H 28 H Rate Blood Pressure 137/74 H Blood Pressure [Right Brachial artery] Blood Pressure [Right Radial artery] O2 Saturation 11/30/20 11/30/20 11/30/20 18:31 18:45 18:46 Temperature Heart Rate 81 80 81 Heart Rate [ Monitoring electrodes] Respiratory 29 H 27 H 27 H Rate Blood Pressure 139/78 H 137/81 H Blood Pressure [Right Brachial artery] Blood Pressure [Right Radial artery] O2 Saturation 11/30/20 11/30/20 11/30/20 19:00 19:01 19:15 Temperature 38.6 C H Heart Rate 79 81 77 Heart Rate [ 80 Monitoring electrodes] Respiratory 27 H 29 H 29 H Rate Blood Pressure 138/77 H Blood Pressure 138/77 H [Right Brachial artery] Blood Pressure [Right Radial artery] O2 Saturation 97 11/30/20 11/30/20 11/30/20 19:16 19:30 19:31 Temperature Heart Rate 77 74 72 Heart Rate [ Monitoring electrodes] Respiratory 26 H 26 H 26 H Rate Blood Pressure 132/77 H 133/80 H Blood Pressure [Right Brachial artery] Blood Pressure [Right Radial artery] O2 Saturation 11/30/20 11/30/20 11/30/20 19:41 19:42 19:45 Temperature Heart Rate 154 H 153 H 152 H Heart Rate [ Monitoring electrodes] Respiratory 28 H 27 H 27 H Rate Blood Pressure 132/88 H Blood Pressure [Right Brachial artery] Blood Pressure [Right Radial artery] O2 Saturation 11/30/20 11/30/20 11/30/20 19:46 20:00 20:01 Temperature Heart Rate 152 H 153 H 97 Heart Rate [ Monitoring electrodes] Respiratory 27 H 39 H 42 H Rate Blood Pressure 138/89 H 129/115 H Blood Pressure [Right Brachial artery] Blood Pressure [Right Radial artery] O2 Saturation 11/30/20 11/30/20 11/30/20 20:05 20:07 20:08 Temperature Heart Rate 92 92 Heart Rate [ 92 Monitoring electrodes] Respiratory 45 H 42 H 33 H Rate Blood Pressure 148/90 H Blood Pressure 148/90 H [Right Brachial artery] Blood Pressure [Right Radial artery] O2 Saturation 99 11/30/20 11/30/20 11/30/20 20:15 20:16 20:22 Temperature Heart Rate 85 85 85 Heart Rate [ Monitoring electrodes] Respiratory 36 H 35 H Rate Blood Pressure 147/90 H Blood Pressure [Right Brachial artery] Blood Pressure [Right Radial artery] O2 Saturation 11/30/20 11/30/20 11/30/20 20:30 20:31 20:45 Temperature Heart Rate 86 85 98 Heart Rate [ Monitoring electrodes] Respiratory 26 H 28 H 47 H Rate Blood Pressure 143/92 H Blood Pressure [Right Brachial artery] Blood Pressure [Right Radial artery] O2 Saturation 11/30/20 11/30/20 11/30/20 20:46 20:54 20:55 Temperature Heart Rate 95 89 87 Heart Rate [ Monitoring electrodes] Respiratory 25 H 42 H 40 H Rate Blood Pressure 157/141 H 136/97 H Blood Pressure [Right Brachial artery] Blood Pressure [Right Radial artery] O2 Saturation 11/30/20 11/30/20 11/30/20 21:00 21:01 21:06 Temperature Heart Rate 85 84 81 Heart Rate [ 86 Monitoring electrodes] Respiratory 36 H 38 H 35 H Rate Blood Pressure 139/95 H Blood Pressure 139/95 H [Right Brachial artery] Blood Pressure [Right Radial artery] O2 Saturation 98 11/30/20 11/30/20 11/30/20 21:07 21:10 21:11 Temperature Heart Rate 82 79 82 Heart Rate [ Monitoring electrodes] Respiratory 35 H 32 H 34 H Rate Blood Pressure 139/74 H 141/100 H Blood Pressure [Right Brachial artery] Blood Pressure [Right Radial artery] O2 Saturation 11/30/20 11/30/20 11/30/20 21:15 21:16 21:20 Temperature Heart Rate 79 79 78 Heart Rate [ Monitoring electrodes] Respiratory 33 H 31 H 31 H Rate Blood Pressure 142/84 H Blood Pressure [Right Brachial artery] Blood Pressure [Right Radial artery] O2 Saturation 11/30/20 11/30/20 11/30/20 21:21 21:25 21:26 Temperature Heart Rate 78 78 77 Heart Rate [ Monitoring electrodes] Respiratory 31 H 31 H 27 H Rate Blood Pressure 152/79 H 139/85 H Blood Pressure [Right Brachial artery] Blood Pressure [Right Radial artery] O2 Saturation 11/30/20 11/30/20 11/30/20 21:30 21:31 21:45 Temperature Heart Rate 78 77 74 Heart Rate [ Monitoring electrodes] Respiratory 26 H 31 H 30 H Rate Blood Pressure 149/94 H Blood Pressure [Right Brachial artery] Blood Pressure [Right Radial artery] O2 Saturation 11/30/20 11/30/20 11/30/20 21:46 22:00 22:01 Temperature 38.8 C H Heart Rate 75 72 72 Heart Rate [ 72 Monitoring electrodes] Respiratory 28 H 31 H 29 H Rate Blood Pressure 147/92 H 143/83 H Blood Pressure 143/83 H [Right Brachial artery] Blood Pressure [Right Radial artery] O2 Saturation 95 11/30/20 11/30/20 11/30/20 22:15 22:30 22:45 Temperature Heart Rate 78 70 69 Heart Rate [ Monitoring electrodes] Respiratory 39 H 34 H 32 H Rate Blood Pressure Blood Pressure [Right Brachial artery] Blood Pressure [Right Radial artery] O2 Saturation 11/30/20 11/30/20 11/30/20 23:00 23:01 23:15 Temperature Heart Rate 68 68 69 Heart Rate [ 68 Monitoring electrodes] Respiratory 29 H 28 H 27 H Rate Blood Pressure 138/80 H Blood Pressure 138/80 H [Right Brachial artery] Blood Pressure [Right Radial artery] O2 Saturation 95 11/30/20 11/30/20 12/01/20 23:30 23:45 00:00 Temperature Heart Rate 69 68 78 Heart Rate [ Monitoring electrodes] Respiratory 29 H 30 H 34 H Rate Blood Pressure Blood Pressure [Right Brachial artery] Blood Pressure [Right Radial artery] O2 Saturation 12/01/20 12/01/20 12/01/20 00:01 00:10 00:11 Temperature 38.8 C H Heart Rate 79 68 68 Heart Rate [ 68 Monitoring electrodes] Respiratory 39 H 33 H 34 H Rate Blood Pressure 146/112 H 144/93 H Blood Pressure 144/93 H [Right Brachial artery] Blood Pressure [Right Radial artery] O2 Saturation 96 12/01/20 12/01/20 12/01/20 00:15 00:30 00:40 Temperature Heart Rate 67 67 69 Heart Rate [ Monitoring electrodes] Respiratory 33 H 29 H Rate Blood Pressure Blood Pressure [Right Brachial artery] Blood Pressure [Right Radial artery] O2 Saturation 12/01/20 12/01/20 12/01/20 00:45 01:00 01:01 Temperature Heart Rate 69 67 69 Heart Rate [ Monitoring electrodes] Respiratory 31 H 32 H 32 H Rate Blood Pressure 146/107 H Blood Pressure [Right Brachial artery] Blood Pressure [Right Radial artery] O2 Saturation 12/01/20 12/01/20 12/01/20 01:04 01:05 01:15 Temperature Heart Rate 68 67 67 Heart Rate [ 67 Monitoring electrodes] Respiratory 32 H 31 H 32 H Rate Blood Pressure 153/73 H Blood Pressure 153/73 H [Right Brachial artery] Blood Pressure [Right Radial artery] O2 Saturation 95 12/01/20 12/01/20 12/01/20 01:30 01:45 02:00 Temperature Heart Rate 67 67 90 Heart Rate [ 73 Monitoring electrodes] Respiratory 28 H 30 H 35 H Rate Blood Pressure Blood Pressure 142/75 H [Right Brachial artery] Blood Pressure [Right Radial artery] O2 Saturation 96 12/01/20 12/01/20 12/01/20 02:01 02:02 02:15 Temperature Heart Rate 81 82 70 Heart Rate [ Monitoring electrodes] Respiratory 43 H 41 H 29 H Rate Blood Pressure 142/75 H Blood Pressure [Right Brachial artery] Blood Pressure [Right Radial artery] O2 Saturation 12/01/20 12/01/20 12/01/20 02:30 02:45 03:00 Temperature Heart Rate 67 67 66 Heart Rate [ 68 Monitoring electrodes] Respiratory 31 H 31 H 31 H Rate Blood Pressure Blood Pressure 145/68 H [Right Brachial artery] Blood Pressure [Right Radial artery] O2 Saturation 93 12/01/20 12/01/20 12/01/20 03:01 03:02 03:15 Temperature Heart Rate 65 68 67 Heart Rate [ Monitoring electrodes] Respiratory 32 H 32 H 32 H Rate Blood Pressure 145/68 H Blood Pressure [Right Brachial artery] Blood Pressure [Right Radial artery] O2 Saturation 12/01/20 12/01/2021 03:30 03:45 04:00 Temperature 39.1 C H Heart Rate 68 69 67 Heart Rate [ 68 Monitoring electrodes] Respiratory 33 H 34 H 33 H Rate Blood Pressure Blood Pressure 129/60 [Right Brachial artery] Blood Pressure [Right Radial artery] O2 Saturation 93 12/01/20 12/01/20 12/01/20 04:01 04:02 04:07 Temperature Heart Rate 67 67 68 Heart Rate [ Monitoring electrodes] Respiratory 29 H 31 H 34 H Rate Blood Pressure 148/101 H Blood Pressure [Right Brachial artery] Blood Pressure [Right Radial artery] O2 Saturation 12/01/20 12/01/20 12/01/20 04:08 04:15 04:30 Temperature Heart Rate 68 67 67 Heart Rate [ Monitoring electrodes] Respiratory 31 H 32 H 27 H Rate Blood Pressure 129/60 Blood Pressure [Right Brachial artery] Blood Pressure [Right Radial artery] O2 Saturation 12/01/20 12/01/20 12/01/20 04:38 04:45 05:00 Temperature Heart Rate 78 74 88 Heart Rate [ Monitoring electrodes] Respiratory 33 H 30 H 37 H Rate Blood Pressure Blood Pressure [Right Brachial artery] Blood Pressure [Right Radial artery] O2 Saturation 12/01/20 12/01/20 12/01/20 05:01 05:15 05:21 Temperature Heart Rate 83 78 Heart Rate [ 77 Monitoring electrodes] Respiratory 36 H 39 H 35 H Rate Blood Pressure 147/105 H Blood Pressure 150/94 H [Right Brachial artery] Blood Pressure [Right Radial artery] O2 Saturation 94 12/01/20 12/01/20 12/01/20 05:23 05:24 05:30 Temperature Heart Rate 76 76 74 Heart Rate [ Monitoring electrodes] Respiratory 28 H 35 H 35 H Rate Blood Pressure 150/94 H Blood Pressure [Right Brachial artery] Blood Pressure [Right Radial artery] O2 Saturation 12/01/20 12/01/20 12/01/20 06:00 07:00 07:50 Temperature Heart Rate 66 Heart Rate [ 71 69 Monitoring electrodes] Respiratory 30 H 28 H Rate Blood Pressure Blood Pressure 148/73 H 139/92 H [Right Brachial artery] Blood Pressure [Right Radial artery] O2 Saturation 92 93 12/01/20 12/01/20 12/01/20 08:00 08:12 09:00 Temperature 39 C H 39 C H Heart Rate 67 Heart Rate [ 65 79 Monitoring electrodes] Respiratory 23 26 H 20 Rate Blood Pressure Blood Pressure 139/89 H 140/89 H [Right Brachial artery] Blood Pressure [Right Radial artery] O2 Saturation 97 91 L 12/01/20 12/01/20 12/01/20 10:00 11:00 12:00 Temperature 39 C H 39 C H 39 C H Heart Rate Heart Rate [ 73 63 68 Monitoring electrodes] Respiratory 25 H 20 24 Rate Blood Pressure Blood Pressure 131/74 H 127/84 H 135/80 H [Right Brachial artery] Blood Pressure 139/93 H 147/76 H [Right Radial artery] O2 Saturation 94 97 95 12/01/20 12/01/20 12/01/20 12:11 12:28 13:00 Temperature 39.1 C H Heart Rate 66 66 Heart Rate [ 63 Monitoring electrodes] Respiratory 24 19 Rate Blood Pressure Blood Pressure 130/86 H [Right Brachial artery] Blood Pressure 139/72 H [Right Radial artery] O2 Saturation 93 12/01/20 12/01/20 13:59 15:00 Temperature 39.2 C H 39.3 C H Heart Rate Heart Rate [ 58 L 64 Monitoring electrodes] Respiratory 17 14 Rate Blood Pressure Blood Pressure 126/74 131/84 H [Right Brachial artery] Blood Pressure 138/70 H [Right Radial artery] O2 Saturation 97 95 Oxygen O2 Source Mechanical ventilator Oxygen Flow Rate 15 I&O (Last 24 Hrs): Intake and Output Totals x24h 11/29/20 11/30/20 12/01/20 23:59 23:59 23:59 Intake Total 450 3409.128 1528.673 Output Total 2028 784 Balance 450 1381.128 744.673 General: Other (Sedcated) HEENT: Mucous membr. moist/pink, Other (ET in place) Neck: No JVD, Other Neuro: Other (Sedated) Cardiovascular: Regular rate, No murmurs Respiratory: No respiratory distress, Breath sounds nml (anteriorly) Abdomen: Soft, Other (Obese) Extremities: No edema - Results Results: Laboratory Results WBC 19.9 x10^3/uL (4.8-10.8) H 12/01/20 05:30 RBC 3.97 10^6/uL (4.20-5.40) L 12/01/20 05:30 Hgb 12.3 g/dL (12.0-16.0) 12/01/20 05:30 Hct 36.6 % (37.0-47.0) L 12/01/20 05:30 MCV 92.2 fL (81.0-99.0) 12/01/20 05:30 MCH 31.0 pg (27.0-31.0) 12/01/20 05:30 MCHC 33.6 g/dL (32.0-36.0) 12/01/20 05:30 RDW 13.3 % (12.0-15.0) 12/01/20 05:30 Plt Count 321 10^3/uL (130-450) 12/01/20 05:30 MPV 9.7 fL (7.9-10.8) 12/01/20 05:30 Neut # (Auto) 17.6 10^3/uL (1.5-6.6) H 12/01/20 05:30 Lymph # (Auto) 0.9 10^3/uL (1.5-3.5) L 12/01/20 05:30 White # (Auto) 0.9 10^3/uL (0.0-1.0) 12/01/20 05:30 Eos # (Auto) 0.0 10^3/uL (0.0-0.7) 12/01/20 05:30 Baso # (Auto) 0.0 10^3/uL (0.0-0.1) 12/01/20 05:30 Absolute Nucleated RBC 0.02 x10^3/uL 12/01/20 05:30 Total Counted 100 11/30/20 05:12 Band Neuts % (Manual) 4 % (0-10) 11/30/20 05:12 Abnorm Lymph % (Manual) 0 % 11/30/20 05:12 Nucleated RBC % 0.1 /100WBC 12/01/20 05:30 Neutrophils # (Manual) 17.8 10^3/uL (1.5-6.6) H 11/30/20 05:12 Lymphocytes # (Manual) 1.1 10^3/uL (1.5-3.5) L 11/30/20 05:12 Monocytes # (Manual) 0.0 10^3/uL (0.0-1.0) 11/30/20 05:12 Eosinophils # (Manual) 0.0 10^3/uL (0-0.7) 11/30/20 05:12 Basophils # (Manual) 0.0 10^3/uL (0-0.1) 11/30/20 05:12 Differential Comment MANUAL DIFFERENTIAL 11/30/20 05:12 WBC Morphology NORMAL APPEARANCE (NORMAL) 11/30/20 05:12 Platelet Estimate NORMAL (130-450,000) (NORMAL) 11/30/20 05:12 Platelet Morphology NORMAL APPEARANCE (NORMAL) 11/30/20 05:12 RBC Morph Micro Appear NORMAL APPEARANCE (NORMAL) 11/30/20 05:12 PT 15.4 secs (9.9-12.6) H 11/29/20 18:41 INR 1.4 (0.8-1.2) H 11/29/20 18:41 D-Dimer 605.4 ng/mL (200.0-255.0) H 12/01/20 05:30 Bld Gas Analysis Time 1325 12/01/20 13:19 Sample Site A-LINE 12/01/20 13:19 ABG pH 7.38 (7.35-7.45) 12/01/20 13:19 ABG pCO2 29 mmHg (34-45) L 12/01/20 13:19 ABG pO2 70 mmHg (80-100) L 12/01/20 13:19 ABG HCO3 16.9 mmol/L (22.0-26.0) L 12/01/20 13:19 ABG Total CO2 17.8 MMOL/L (21.0-29.0) L 12/01/20 13:19 ABG O2 Saturation 92 % (94-98) L 12/01/20 13:19 ABG Base Excess -7.0 mmol/L (-2.0-3.0) L 12/01/20 13:19 Luis Antonio Test NOT APPLICABLE 12/01/20 13:19 VBG pH 7.406 (7.31-7.41) 11/29/20 18:41 VBG pCO2 34.4 mmHg (41-51) L 11/29/20 18:41 VBG pO2 26.2 mmHg (25-47) 11/29/20 18:41 VBG HCO3 21.1 mmol/L (23-28) L 11/29/20 18:41 VBG Total CO2 22.2 mmol/L (24-29) L 11/29/20 18:41 VBG O2 Saturation 48.7 % (60-80) L 11/29/20 18:41 VBG Base Excess -2.8 mmol/L (-2 - +2) L 11/29/20 18:41 Respiration Rate 18 b/min 12/01/20 13:19 O2 Delivery Device VENTILATOR 12/01/20 13:19 Vent Mode ASSIST/CONTROL 12/01/20 13:19 FiO2 90.00 12/01/20 13:19 Tidal Volume 400 mL 12/01/20 13:19 PEEP 10 cmH2O 12/01/20 13:19 Pressure Support Vent 10 cmH2O 11/30/20 05:05 Sodium 137 mmol/L (135-145) 12/01/20 05:30 Potassium 3.9 mmol/L (3.5-5.0) 12/01/20 05:30 Chloride 107 mmol/L (101-111) 12/01/20 05:30 Carbon Dioxide 18 mmol/L (21-32) L 12/01/20 05:30 Anion Gap 12.0 (6-13) 12/01/20 05:30 BUN 28 mg/dL (6-20) H 12/01/20 05:30 Creatinine 1.0 mg/dL (0.4-1.0) 12/01/20 05:30 Estimated GFR (MDRD) 56 (>89) L 12/01/20 05:30 Glucose 187 mg/dL (70-100) H 12/01/20 05:30 Lactic Acid 1.5 mmol/L (0.5-2.2) 11/30/20 05:12 Calcium 8.3 mg/dL (8.5-10.3) L 12/01/20 05:30 Phosphorus 2.7 mg/dL (2.5-4.6) 12/01/20 05:30 Magnesium 2.3 mg/dL (1.7-2.8) 12/01/20 05:30 Total Bilirubin 0.9 mg/dL (0.2-1.0) 12/01/20 05:30 Direct Bilirubin 0.3 mg/dL (0.1-0.5) 12/01/20 05:30 AST 30 IU/L (10-42) 12/01/20 05:30 ALT 82 IU/L (10-60) H 12/01/20 05:30 Alkaline Phosphatase 123 IU/L (42-121) H 12/01/20 05:30 Troponin I High Sens 14.9 ng/L (2.3-14.8) H* 11/30/20 05:12 Total Protein 6.7 g/dL (6.7-8.2) 12/01/20 05:30 Albumin 2.7 g/dL (3.2-5.5) L 12/01/20 05:30 Globulin 4.0 g/dL (2.1-4.2) 12/01/20 05:30 Albumin/Globulin Ratio 0.8 (1.0-2.2) L 11/29/20 18:41 Triglycerides 344 mg/dL (-149) H 12/01/20 05:30 Nasal Screen MRSA (PCR) NEGATIVE (NEGATIVE) 11/29/20 21:15 - Procedures Procedures: Procedures CARPAL TUNNEL RELEASE (04/16/13) DESTRUCT-KNEE LESION NEC (07/09/14) EXCIS KNEE SEMILUN CARTL (07/09/14) EXPLOR TEND SHEATH-HAND (04/16/13)
[2020-12-01] MEDS: diltiaZEM INJ 125 MG in DEXTROSE 5% 100 ML IV SCH (16:31)
[2020-12-01] MEDS: AZITHROMYCIN INJ 500 MG in SODIUM CHLORIDE 0.9% 250 ML IV SCH (19:47)
[2020-12-02] MEDS: SODIUM CHLORIDE FLUSH 0.9% 10 ML SYRINGE IVP SCH ×4 (00:10→16:31)
[2020-12-02] MEDS: DEXMEDETOMIDINE 400 MCG/100 ML 100 ML IV SCH ×5 (00:55→10:52)
[2020-12-02] MEDS ORDERED: IBUPROFEN 600 MG TABLET PO PRN (02:22)
[2020-12-02] MEDS: fentaNYL 2,500 MCG/250 ML 2,500 MCG/250 ML BAG IV SCH ×8 (02:25→22:06)
[2020-12-02] MEDS: ACETAMINOPHEN 1,000 MG/100 ML 100 ML IV PRN ×2 (02:27→15:03)
[2020-12-02 04:59] LABS: BASOPHILS % (AUTO) 0.2 %; HCT - HEMATOCRIT 36.4 % (37.0-47.0); HGB - HEMOGLOBIN 11.7 g/dL (12.0-16.0); LYMPHOCYTES % (AUTO) 4.6 %; MEAN CORPUSCULAR HEMOGLOBIN 30.9 pg (27.0-31.0); MEAN CORPUSCULAR HGB CONC 32.1 g/dL (32.0-36.0); MEAN PLATELET VOLUME 9.9 fL (7.9-10.8); MONOCYTES % (AUTO) 4.5 %; NEUTROPHILS % (AUTO) 86.3 %; PLT - PLATELET COUNT 287 10^3/uL (130-450); RED BLOOD COUNT 3.79 10^6/uL (4.20-5.40); RED CELL DISTRIBUTION WIDTH 13.6 % (12.0-15.0); WHITE BLOOD COUNT 19.7 x10^3/uL (4.8-10.8)
[2020-12-02] MEDS: LORazepam 2 MG/ML VIAL IVP PRN (05:01)
[2020-12-02 05:10] LABS: ABG PH 7.35 (7.35-7.45)
[2020-12-02 05:11] LABS: CALCIUM 8.1 mg/dL (8.5-10.3); MAGNESIUM 2.2 mg/dL (1.7-2.8); PHOSPHORUS 2.7 mg/dL (2.5-4.6); POTASSIUM 4.4 mmol/L (3.5-5.0)
[2020-12-02 05:11] LABS: ABG BASE EXCESS -9.1 mmol/L (-2.0-3.0); ABG HCO3 15.1 mmol/L (22.0-26.0); ABG MODE OF VENTILATION ASSIST/CONTROL; ABG OXYGEN SATURATION 88 % (94-98); ABG PCO2 28 mmHg (34-45); ABG PO2 58 mmHg (80-100); ABG RESPIRATORY RATE 18 b/min; ABG TCO2 15.9 MMOL/L (21.0-29.0)
[2020-12-02 05:23] LABS: ABNORMAL LYMPHS % (MANUAL) 0 %
[2020-12-02 05:38] LABS: BAND NEUTROPHILS % (MANUAL) 4 %; DIFFERENTIAL COMMENT MANUAL DIFFERENTIAL; LYMPHOCYTES # (MANUAL) 1.4 10^3/uL (1.5-3.5); LYMPHOCYTES % (MANUAL) 7 %; METAMYELOCYTES % (MANUAL) 3 %; MONOCYTES # (MANUAL) 1.2 10^3/uL (0.0-1.0); MYELOCYTES % (MANUAL) 3 %; PLATELET ESTIMATE, MANUAL NORMAL (130-450,000) (NORMAL); RBC MORPHOLOGY (MULTIPLE) NORMAL APPEARANCE (NORMAL)
[2020-12-02] MEDS: CEFEPIME 2 GM in SODIUM CHLORIDE 0.9% MINIBAG 100 ML IV SCH ×3 (05:41→21:06)
[2020-12-02] MEDS ORDERED: ASPIRIN 325 MG TABLET PO STA (07:08)
[2020-12-02] MEDS ORDERED: FUROSEMIDE 40 MG/4 ML VIAL IVP STA (07:12)
[2020-12-02] MEDS: PANTOPRAZOLE 40 MG VIAL IVP SCH (07:53)
[2020-12-02] MEDS: IPRATROPIUM/ALBUTEROL 3 ML NEB INH SCH ×4 (07:58→23:15)
[2020-12-02] MEDS: BUDESONIDE 0.5 MG/2 ML NEB INH SCH ×2 (07:58→23:14)
[2020-12-02] MEDS: FORMOTEROL FUMARATE NEB 20 MCG/2 ML INH SCH ×2 (07:58→23:14)
--- NOTE | 2020-12-02 08:58 | XRAY Report ---
PROCEDURE: Chest 1 View X-Ray INDICATIONS: Worsening sats,fever,F/U COVID pneumonia TECHNIQUE: One view of the chest was acquired. COMPARISON: 11/30/2020 FINDINGS: Surgical changes and devices: ET tube, NG tube, central line in satisfactory position.. Lungs and pleura: No significant change in extensive bilateral pulmonary consolidation. Mediastinum: Mediastinal contours appear normal. Question mild cardiomegaly. Bones and chest wall: No suspicious bony lesions. Overlying soft tissues appear unremarkable. IMPRESSION: 1. Lines and tubes in satisfactory position. 2. No significant change, extensive bilateral pulmonary consolidation. Reviewed by: Bossman Neville MD on 12/02/2020 8:57 AM PST Approved by: Bossman Neville MD on 12/02/2020 8:57 AM PST Station ID: [id number]
[2020-12-02] MEDS: MINERAL OIL/PETROLAT OPHTH OINT EACHEYE PRN (09:30)
[2020-12-02] MEDS: ENOXAPARIN 40 MG/0.4 ML SYRINGE SUBQ SCH (10:17)
[2020-12-02] MEDS: DEXAMETHASONE 4 MG/ML VIAL IVP SCH (10:20)
[2020-12-02] MEDS: CHLORHEXIDINE GLUCONATE 15 ML UDC PO SCH ×3 (10:24→21:06)
[2020-12-02] MEDS ORDERED: ROCURONIUM 50 MG/5 ML VIAL ONE (10:50)
[2020-12-02] MEDS: SODIUM CHLORIDE 0.9% 500 ML IV PRN (10:51)
[2020-12-02] MEDS: levoFLOXacin 750 MG/150 ML 750 MG/150 ML BAG IV SCH (11:23)
[2020-12-02] MEDS ORDERED: diltiaZEM INJ 5 MG/ML VIAL IVP ONE (12:07)
[2020-12-02] MEDS: DEXMEDETOMIDINE 400 MCG in SODIUM CHLORIDE 0.9% 100ML 96 ML IV SCH ×2 (12:56→15:25)
[2020-12-02] MEDS: diltiaZEM INJ 125 MG in DEXTROSE 5% 100 ML IV SCH (13:06)
[2020-12-02] MEDS: MIDAZOLAM DRIP 50 MG/100 ML BAG IV SCH ×2 (13:35→19:50)
--- NOTE | 2020-12-02 14:06 | PROVIDER PROGRESS NOTE ---
Assessment/Plan - Problem List (1) Acute respiratory failure with hypoxia Assessment/Plan: She needed increased vent setiings to 100% FiO2 today and with being on pressure support-plus, she was taking in volumes of 700 cc, required PEEP up to 15. Decision is made to start proning her today, thus Anesthesia was requested to come and give Roxanol for being able to turn her on her stomach. After this she had improvement with PEEP decreasing to 10, FiO2 decreasing to 80%. We will plan to do proning daily, Anesthesia is involved and following along with us. While on the ventilator, we started with propofol for IV sedation which did not have an effect even at max dose. Yesterday she was on Precedex drip and added Fentanyl drip. Today Versed drip will need to be added. I spoke to the today regarding this entire new treatment plan (proning). I inquired if she drinks alcohol in excess or uses narcotics in excess since we are seeing such a high need for 3 sedatives. The explained that she takes her [place] 4 times a day but that she has gone to "pain management", she has completely stopped alcohol intake according to him, several years ago. 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 Continue with IV Decadron and Lovenox treatments. She was also put on empiric iv antibiotics, starting with Rocephin and azithromycin for possible bacterial CSAP, which was then broadened to iv Azithro, plus Cefepime and Vanco, Vanco stopped yesterday. Today, Pharmacist advised we add iv Levaquin and stop Azithro. Proning while on the vent will be started today and done daily, as described in #1 above. I discussed all the above with the today by phone. The informed me that he turned positive for Covid today, has no symptoms yet. (3) Asthma with acute exacerbation Qualifiers: Asthma severity: severe Assessment/Plan: Her asthma may be the reason for most of her morbidity with Covid being so severe. But on exam does not have severe wheezing. We will still continue regular dose DuoNeb. As needed albuterol. Long-acting bronchodilator. Long-acting steroid. And IV steroids. (4) SVT (supraventricular tachycardia) Assessment/Plan: She was put on iv Diltiazem drip at 5 mg/hr. This suppressed SVT yesterday and Dilt drip was stopped at 1800 for a HR of 40's. Today, she went into SVT at 160 and dropped her BP to 99. The SVT broke spontaneously after possibly 20 min. Will resume low dose iv Dilt drip. (5) Hypokalemia Assessment/Plan: Will supplement again today on ICU electrolyte protocol Follow BMP daily. (6) OLI (acute kidney injury) Assessment/Plan: Slowly improving with iv hydration. Later today, ng feed will also start. (7) Hyperglycemia Assessment/Plan: Most likely secondary to steroid use. If glucose is elevated consistently, she will be placed on sliding scale insulin. Will start ng feeds later today, after she is again supine after proning. (8) Hx of essential hypertension Assessment/Plan: She continues to be normotensive or "soft" BP Still holding off on her blood pressure medications until she becomes c onsistently hypertensive. - Current Meds Current Meds: Current Medications Generic Name Dose Route Start Last Admin Trade Name Freq PRN Reason Stop Dose Admin Albuterol 2.5 mg 11/30/20 15:42 12/01/20 04:38 Albuterol Neb 2.5 Mg/3 Ml INH 2.5 mg Q4HR PRN Administration Dyspnea Albuterol/Ipratropium 3 ml 11/30/20 07:00 12/02/20 09:30 Ipratropium/Albuterol 3 Ml Neb INH 3 ml RTQID KEVEN Administration Budesonide 0.5 mg 11/30/20 07:00 12/02/20 07:58 Budesonide 0.5 Mg/2 Ml Neb INH 0.5 mg RTBID KEVEN Administration Chlorhexidine Gluconate 15 ml 11/30/20 09:00 12/02/20 10:24 Chlorhexidine Gluconate 15 Ml Udc PO Not Given BID KEVEN Dexamethasone 6 mg 11/30/20 09:00 12/02/20 10:20 Dexamethasone 4 Mg/Ml Vial IVP 6 mg DAILY KEVEN Administration Enoxaparin Sodium 40 mg 12/01/20 11:00 12/02/20 10:17 Enoxaparin 40 Mg/0.4 Ml Syringe SUBQ 40 mg DAILY KEVEN Administration Formoterol Fumarate 20 mcg 11/30/20 07:00 12/02/20 07:58 Formoterol Fumarate Neb 20 Mcg/2 Ml INH 20 mcg RTBID KEVEN Administration Cefepime HCl 2 gm/ Sodium 100 mls @ 200 mls/hr 11/30/20 08:00 12/02/20 06:15 Chloride IV Infused TID KEVEN Infusion Acetaminophen 100 mls @ 400 mls/hr 11/30/20 10:18 12/02/20 03:10 Ofirmev IV Infused Q6HR PRN Infusion Pain or Fever > 38C (100.4F) Fentanyl 2,500 mcg in 250 mls @ 11.6 mls/hr 12/01/20 10:00 12/02/20 12:27 Fentanyl IV 10 mcg/kg/hr .[id number] KEVEN 116 mls/hr Administration Protocol 1 MCG/KG/HR Sodium Chloride 500 mls @ 20 mls/hr 12/01/20 11:50 12/02/20 13:28 Normal Saline 0.9% IV 40 mls/hr Q24H PRN Infusion TKO RATE Diltiazem HCl 125 mg/ Dextrose 125 mls @ 2.5 mls/hr 12/01/20 16:11 12/01/20 16:31 IV Not Given .Q50H KEVEN 2.5 MG/HR Levofloxacin 750 mg in 150 mls @ 100 mls/hr 12/02/20 11:00 12/02/20 12:55 Levaquin 750 Mg/150 Ml IV Infused Q24H KEVEN Infusion Dexmedetomidine HCl 400 mcg/ 100 mls @ 5.875 mls/hr 12/02/20 12:00 12/02/20 12:56 Sodium Chloride IV 1.5 mcg/kg/hr .Q17H2M KEVEN 44.063 mls/hr Administration Protocol 0.2 MCG/KG/HR Midazolam HCl 50 mg in 100 mls @ 9.4 mls/hr 12/02/20 13:00 12/02/20 13:35 Versed Drip IV 0.04 mg/kg/hr .[id number] KEVEN 9.4 mls/hr Administration Protocol 0.04 MG/KG/HR Lorazepam 0.5 mg 11/29/20 22:39 12/02/20 05:01 Lorazepam 2 Mg/Ml Vial IVP 0.5 mg Q2H PRN Administration Anxiety Multi-Ingred Cream/Lotion/Oil/Oint 1 applic 12/02/20 08:39 12/02/20 09:30 Mineral Oil/Petrolat Ophth Oint EACHEYE 1 applic QPM PRN Administration Dry Eye Pantoprazole Sodium 40 mg 11/30/20 07:00 12/02/20 07:53 Pantoprazole 40 Mg Vial IVP 40 mg QDAC KEVEN Administration Sodium Chloride 10 ml 11/30/20 01:00 12/02/20 08:37 Sodium Chloride Flush 0.9% 10 Ml Syringe IVP 10 ml 0100,0900,1700 KEVEN Administration Sodium Chloride 10 ml 11/29/20 19:01 12/01/20 10:54 Sodium Chloride Flush 0.9% 10 Ml Syringe IVP 10 ml PRN PRN Administration NEEDED PER PROVIDER ORDERS - Lab Result Fish Bone Diagrams: 12/02/20 04:30 12/02/20 04:30 - Additional Planning My Orders: My Active Orders 12/01/20 13:26 RT - Obtain Arterial Specimen [RC] .ONCE 12/01/20 16:11 Dextrose 5% [D5w] 100 ml [id number] INJ [Cardizem Inj] 125 mg IV 2.5 mg/hr 12/02/20 08:00 Anesthesia Consult [CONS] Routine 12/02/20 08:38 Carboxymethylcellulose 1% Opht [Refresh 1% Ophth Drops] 1 drops EACHEYE PRN PRN 12/02/20 08:39 Mineral Oil/Petrola Ophth Oint [Lubrifresh Pm Ophth Oint] 1 applic EACHEYE QPM PRN 12/02/20 10:40 Daily Weight [RC] DAILY 12/02/20 11:00 levoFLOXacin 750 MG/150 ML [Levaquin 750 mg/150 ml] 750 mg in 150 ml IV Q24H 12/02/20 12:00 Tube Feeding [RC] QSHIFT Sodium Chloride 0.9% 100Ml [Normal Saline 0.9% 100Ml] 96 ml Dexmedetomidine [Precedex] 400 mcg IV 0.2 mcg/kg/hr 12/02/20 13:00 Midazolam Drip [Versed Drip] 50 mg in 100 ml IV 0.04 mg/kg/hr 12/03/20 05:00 COMPREHENSIVE METABOLIC PANEL [CHEM] Timed MAGNESIUM [CHEM] Timed PHOSPHORUS [CHEM] Timed PREALBUMIN [CHEM] Timed 12/05/20 05:00 COMPREHENSIVE METABOLIC PANEL [CHEM] Timed MAGNESIUM [CHEM] Timed PHOSPHORUS [CHEM] Timed PREALBUMIN [CHEM] Timed 12/08/20 05:00 COMPREHENSIVE METABOLIC PANEL [CHEM] Timed MAGNESIUM [CHEM] Timed PHOSPHORUS [CHEM] Timed PREALBUMIN [CHEM] Timed Objective Vital Signs: Vital Signs - 24 hr 12/01/20 12/01/20 12/01/20 15:00 16:00 16:15 Temperature 39.3 C H 39.3 C H Heart Rate 64 Heart Rate [ 64 59 L Monitoring electrodes] Respiratory 14 21 20 Rate Blood Pressure Blood Pressure 131/84 H 122/64 [Right Brachial artery] Blood Pressure 139/71 H [Right Radial artery] O2 Saturation 95 94 12/01/20 12/01/20 12/01/20 16:31 16:33 17:00 Temperature 39.4 C H 39.4 C H Heart Rate Heart Rate [ 65 Monitoring electrodes] Respiratory 18 Rate Blood Pressure 122/64 Blood Pressure 117/78 [Right Brachial artery] Blood Pressure 139/90 H [Right Radial artery] O2 Saturation 97 12/01/20 12/01/20 12/01/20 18:00 19:00 20:00 Temperature 39.4 C H 39.5 C H 38.3 C H Heart Rate Heart Rate [ 66 59 L 71 Monitoring electrodes] Respiratory 18 18 17 Rate Blood Pressure Blood Pressure 137/74 H 145/91 H 141/80 H [Right Brachial artery] Blood Pressure 144/91 H 120/78 [Right Radial artery] O2 Saturation 100 98 97 12/01/20 12/01/20 12/01/20 20:41 21:00 22:00 Temperature Heart Rate 73 Heart Rate [ 72 67 Monitoring electrodes] Respiratory 17 16 Rate Blood Pressure Blood Pressure 140/86 H 149/87 H [Right Brachial artery] Blood Pressure [Right Radial artery] O2 Saturation 97 97 12/01/20 12/02/20 12/02/20 23:05 00:00 01:00 Temperature 38.9 C H Heart Rate Heart Rate [ 66 63 69 Monitoring electrodes] Respiratory 20 17 18 Rate Blood Pressure Blood Pressure 146/87 H 146/88 H 152/85 H [Right Brachial artery] Blood Pressure [Right Radial artery] O2 Saturation 97 98 96 12/02/20 12/02/20 12/02/20 01:16 02:00 03:00 Temperature Heart Rate 63 Heart Rate [ 70 64 Monitoring electrodes] Respiratory 17 18 Rate Blood Pressure Blood Pressure 155/83 H 155/81 H [Right Brachial artery] Blood Pressure [Right Radial artery] O2 Saturation 95 94 12/02/20 12/02/20 12/02/20 04:00 05:10 06:00 Temperature 39.4 C H Heart Rate Heart Rate [ 66 75 74 Monitoring electrodes] Respiratory 12 18 17 Rate Blood Pressure Blood Pressure 153/80 H 158/87 H 149/77 H [Right Brachial artery] Blood Pressure [Right Radial artery] O2 Saturation 93 88 L 92 12/02/20 12/02/20 12/02/20 06:34 07:00 07:58 Temperature Heart Rate 70 67 Heart Rate [ 73 Monitoring electrodes] Respiratory 18 24 Rate Blood Pressure Blood Pressure 144/89 H [Right Brachial artery] Blood Pressure [Right Radial artery] O2 Saturation 94 12/02/20 12/02/20 12/02/20 08:00 09:00 09:29 Temperature 40.1 C H 40.3 C H Heart Rate Heart Rate [ 70 81 74 Monitoring electrodes] Respiratory 16 24 30 H Rate Blood Pressure Blood Pressure 139/77 H 144/64 H 138/76 H [Right Brachial artery] Blood Pressure [Right Radial artery] O2 Saturation 96 63 L 100 12/02/20 12/02/20 12/02/20 09:30 10:00 10:09 Temperature 40 C H Heart Rate 84 85 Heart Rate [ 86 Monitoring electrodes] Respiratory 28 H 30 H Rate Blood Pressure Blood Pressure 141/65 H [Right Brachial artery] Blood Pressure [Right Radial artery] O2 Saturation 100 12/02/20 12/02/20 12/02/20 11:00 11:21 12:00 Temperature 39.8 C H 39.6 C H Heart Rate Heart Rate [ 83 82 81 Monitoring electrodes] Respiratory 17 35 H 21 Rate Blood Pressure Blood Pressure 126/55 L 128/73 [Right Brachial artery] Blood Pressure [Right Radial artery] O2 Saturation 96 96 96 12/02/20 12/02/20 13:00 13:06 Temperature 39.7 C H Heart Rate Heart Rate [ 79 Monitoring electrodes] Respiratory 35 H Rate Blood Pressure 136/70 H Blood Pressure 136/70 H [Right Brachial artery] Blood Pressure [Right Radial artery] O2 Saturation 100 Oxygen O2 Source Mechanical ventilator Oxygen Flow Rate 15 I&O (Last 24 Hrs): Intake and Output Totals x24h 11/30/20 12/01/20 12/02/20 23:59 23:59 23:59 Intake Total 3409.128 2878.006 2621.033 Output Total 2028 1517 2768 Balance 0725.022 0692.006 -146.967 General: Other (Obese. Sedated, eyes open and rolled back.) HEENT: Atraumatic, Mucous membr. moist/pink, Other (ET tube in place) Neck: No JVD Neuro: Other (Sedated) Cardiovascular: Regular rate Respiratory: Other (Clear breath sounds anteriorly) Abdomen: Soft Extremities: No edema - Results Results: Laboratory Results WBC 19.7 x10^3/uL (4.8-10.8) H 12/02/20 04:30 RBC 3.79 10^6/uL (4.20-5.40) L 12/02/20 04:30 Hgb 11.7 g/dL (12.0-16.0) L 12/02/20 04:30 Hct 36.4 % (37.0-47.0) L 12/02/20 04:30 MCV 96.0 fL (81.0-99.0) 12/02/20 04:30 MCH 30.9 pg (27.0-31.0) 12/02/20 04:30 MCHC 32.1 g/dL (32.0-36.0) 12/02/20 04:30 RDW 13.6 % (12.0-15.0) 12/02/20 04:30 Plt Count 287 10^3/uL (130-450) 12/02/20 04:30 MPV 9.9 fL (7.9-10.8) 12/02/20 04:30 Neut # (Auto) Not Reportable 12/02/20 04:30 Lymph # (Auto) Not Reportable 12/02/20 04:30 [place] # (Auto) Not Reportable 12/02/20 04:30 Eos # (Auto) Not Reportable 12/02/20 04:30 Baso # (Auto) Not Reportable 12/02/20 04:30 Absolute Nucleated RBC Not Reportable 12/02/20 04:30 Total Counted 100 12/02/20 04:30 Band Neuts % (Manual) 4 % (0-10) 12/02/20 04:30 Abnorm Lymph % (Manual) 0 % 12/02/20 04:30 Metamyelocytes % 3 % (-0) H 12/02/20 04:30 Myelocytes % 3 % (-0) H 12/02/20 04:30 Nucleated RBC % Not Reportable 12/02/20 04:30 Neutrophils # (Manual) 16.0 10^3/uL (1.5-6.6) H 12/02/20 04:30 Lymphocytes # (Manual) 1.4 10^3/uL (1.5-3.5) L 12/02/20 04:30 Monocytes # (Manual) 1.2 10^3/uL (0.0-1.0) H 12/02/20 04:30 Eosinophils # (Manual) 0.0 10^3/uL (0-0.7) 12/02/20 04:30 Basophils # (Manual) 0.0 10^3/uL (0-0.1) 12/02/20 04:30 Differential Comment MANUAL DIFFERENTIAL 12/02/20 04:30 WBC Morphology NORMAL APPEARANCE (NORMAL) 11/30/20 05:12 Platelet Estimate NORMAL (130-450,000) (NORMAL) 12/02/20 04:30 Platelet Morphology NORMAL APPEARANCE (NORMAL) 11/30/20 05:12 RBC Morph Micro Appear NORMAL APPEARANCE (NORMAL) 12/02/20 04:30 PT 15.4 secs (9.9-12.6) H 11/29/20 18:41 INR 1.4 (0.8-1.2) H 11/29/20 18:41 D-Dimer > 1050.0 ng/mL (200.0-255.0) H 12/02/20 04:30 Bld Gas Analysis Time 0508 12/02/20 04:55 Sample Site A-LINE 12/02/20 04:55 ABG pH 7.35 (7.35-7.45) 12/02/20 04:55 ABG pCO2 28 mmHg (34-45) L 12/02/20 04:55 ABG pO2 58 mmHg (80-100) L 12/02/20 04:55 ABG HCO3 15.1 mmol/L (22.0-26.0) L 12/02/20 04:55 ABG Total CO2 15.9 MMOL/L (21.0-29.0) L 12/02/20 04:55 ABG O2 Saturation 88 % (94-98) L 12/02/20 04:55 ABG Base Excess -9.1 mmol/L (-2.0-3.0) L 12/02/20 04:55 Luis Antonio Test NOT APPLICABLE 12/02/20 04:55 VBG pH 7.406 (7.31-7.41) 11/29/20 18:41 VBG pCO2 34.4 mmHg (41-51) L 11/29/20 18:41 VBG pO2 26.2 mmHg (25-47) 11/29/20 18:41 VBG HCO3 21.1 mmol/L (23-28) L 11/29/20 18:41 VBG Total CO2 22.2 mmol/L (24-29) L 11/29/20 18:41 VBG O2 Saturation 48.7 % (60-80) L 11/29/20 18:41 VBG Base Excess -2.8 mmol/L (-2 - +2) L 11/29/20 18:41 Respiration Rate 18 b/min 12/02/20 04:55 O2 Delivery Device VENTILATOR 12/02/20 04:55 Vent Mode ASSIST/CONTROL 12/02/20 04:55 FiO2 0.90 12/02/20 04:55 Tidal Volume 400 mL 12/02/20 04:55 PEEP 10 cmH2O 12/02/20 04:55 Pressure Support Vent 10 cmH2O 11/30/20 05:05 Sodium 140 mmol/L (135-145) 12/02/20 04:30 Potassium 4.4 mmol/L (3.5-5.0) 12/02/20 04:30 Chloride 114 mmol/L (101-111) H 12/02/20 04:30 Carbon Dioxide 16 mmol/L (21-32) L 12/02/20 04:30 Anion Gap 10.0 (6-13) 12/02/20 04:30 BUN 30 mg/dL (6-20) H 12/02/20 04:30 Creatinine 1.0 mg/dL (0.4-1.0) 12/02/20 04:30 Estimated GFR (MDRD) 56 (>89) L 12/02/20 04:30 Glucose 156 mg/dL (70-100) H 12/02/20 04:30 Lactic Acid 1.5 mmol/L (0.5-2.2) 11/30/20 05:12 Calcium 8.1 mg/dL (8.5-10.3) L 12/02/20 04:30 Phosphorus 2.7 mg/dL (2.5-4.6) 12/02/20 04:30 Magnesium 2.2 mg/dL (1.7-2.8) 12/02/20 04:30 Total Bilirubin 0.9 mg/dL (0.2-1.0) 12/01/20 05:30 Direct Bilirubin 0.3 mg/dL (0.1-0.5) 12/01/20 05:30 AST 30 IU/L (10-42) 12/01/20 05:30 ALT 82 IU/L (10-60) H 12/01/20 05:30 Alkaline Phosphatase 123 IU/L (42-121) H 12/01/20 05:30 Troponin I High Sens 14.9 ng/L (2.3-14.8) H* 11/30/20 05:12 Total Protein 6.7 g/dL (6.7-8.2) 12/01/20 05:30 Albumin 2.3 g/dL (3.2-5.5) L 12/02/20 04:30 Globulin 4.0 g/dL (2.1-4.2) 12/01/20 05:30 Albumin/Globulin Ratio 0.8 (1.0-2.2) L 11/29/20 18:41 Triglycerides 344 mg/dL (-149) H 12/01/20 05:30 Nasal Screen MRSA (PCR) NEGATIVE (NEGATIVE) 11/29/20 21:15 - Procedures Procedures: Procedures CARPAL TUNNEL RELEASE (04/16/13) DESTRUCT-KNEE LESION NEC (07/09/14) EXCIS KNEE SEMILUN CARTL (07/09/14) EXPLOR TEND SHEATH-HAND (04/16/13)
[2020-12-02 14:56] LABS: ABG BASE EXCESS -4.5 mmol/L (-2.0-3.0); ABG HCO3 19.8 mmol/L (22.0-26.0); ABG OXYGEN SATURATION 94 % (94-98); ABG PCO2 34 mmHg (34-45); ABG PH 7.38 (7.35-7.45); ABG PO2 70 mmHg (80-100); ABG TCO2 20.8 MMOL/L (21.0-29.0)
[2020-12-02 14:57] LABS: ABG MODE OF VENTILATION ASSIST/CONTROL; ABG RESPIRATORY RATE 28 b/min; ALLEN TEST POSITIVE
[2020-12-02] MEDS: DEXMEDETOMIDINE 1,000 MCG in SODIUM CHLORIDE 0.9% 250 ML IV SCH (20:17)
[2020-12-03] MEDS: MIDAZOLAM DRIP 50 MG/100 ML BAG IV SCH ×5 (00:38→20:12)
[2020-12-03] MEDS: fentaNYL 2,500 MCG/250 ML 2,500 MCG/250 ML BAG IV SCH ×10 (00:38→23:55)
[2020-12-03] MEDS: SODIUM CHLORIDE FLUSH 0.9% 10 ML SYRINGE IVP SCH ×4 (01:59→23:10)
[2020-12-03] MEDS: DEXMEDETOMIDINE 1,000 MCG in SODIUM CHLORIDE 0.9% 250 ML IV SCH ×4 (02:32→23:18)
[2020-12-03] MEDS: ACETAMINOPHEN 1,000 MG/100 ML 100 ML IV PRN ×4 (03:05→23:50)
[2020-12-03 04:18] LABS: BASOPHILS % (AUTO) 0.3 %; HCT - HEMATOCRIT 34.4 % (37.0-47.0); HGB - HEMOGLOBIN 10.9 g/dL (12.0-16.0); LYMPHOCYTES % (AUTO) 6.5 %; MEAN CORPUSCULAR HEMOGLOBIN 30.4 pg (27.0-31.0); MEAN CORPUSCULAR HGB CONC 31.7 g/dL (32.0-36.0); MEAN CORPUSCULAR VOLUME 96.1 fL (81.0-99.0); MEAN PLATELET VOLUME 9.6 fL (7.9-10.8); MONOCYTES % (AUTO) 4.5 %; NEUTROPHILS % (AUTO) 82.9 %; PLT - PLATELET COUNT 189 10^3/uL (130-450); RED BLOOD COUNT 3.58 10^6/uL (4.20-5.40); RED CELL DISTRIBUTION WIDTH 13.2 % (12.0-15.0); WHITE BLOOD COUNT 14.1 x10^3/uL (4.8-10.8)
[2020-12-03 04:27] LABS: ABNORMAL LYMPHS % (MANUAL) 0 %
[2020-12-03 04:31] LABS: ALBUMIN/GLOBULIN RATIO 0.5 (1.0-2.2); BILIRUBIN,TOTAL 1.2 mg/dL (0.2-1.0); CALCIUM 8.3 mg/dL (8.5-10.3); CREATININE 0.9 mg/dL (0.4-1.0); PHOSPHORUS 2.6 mg/dL (2.5-4.6); POTASSIUM 4.1 mmol/L (3.5-5.0); TOTAL PROTEIN 5.8 g/dL (6.7-8.2)
[2020-12-03 04:57] LABS: BAND NEUTROPHILS % (MANUAL) 4 %; DIFFERENTIAL COMMENT MANUAL DIFFERENTIAL; LYMPHOCYTES # (MANUAL) 1.3 10^3/uL (1.5-3.5); LYMPHOCYTES % (MANUAL) 9 %; MONOCYTES # (MANUAL) 0.7 10^3/uL (0.0-1.0); NEUTROPHILS # (MANUAL) 12.1 10^3/uL (1.5-6.6); PLATELET ESTIMATE, MANUAL NORMAL (130-450,000) (NORMAL); RBC MORPHOLOGY (MULTIPLE) NORMAL APPEARANCE (NORMAL)
[2020-12-03] MEDS: CEFEPIME 2 GM in SODIUM CHLORIDE 0.9% MINIBAG 100 ML IV SCH ×3 (05:28→20:35)
[2020-12-03 05:52] LABS: ABG BASE EXCESS -4.9 mmol/L (-2.0-3.0); ABG HCO3 18.1 mmol/L (22.0-26.0); ABG OXYGEN SATURATION 95 % (94-98); ABG PCO2 27 mmHg (34-45); ABG PH 7.44 (7.35-7.45); ABG PO2 79 mmHg (80-100); ABG TCO2 18.9 MMOL/L (21.0-29.0); ALLEN TEST POSITIVE
[2020-12-03 05:53] LABS: ABG MODE OF VENTILATION ASSIST/CONTROL; ABG RESPIRATORY RATE 28 b/min
[2020-12-03] MEDS: PANTOPRAZOLE 40 MG VIAL IVP SCH (06:06)
[2020-12-03] MEDS: BUDESONIDE 0.5 MG/2 ML NEB INH SCH ×2 (07:34→19:01)
[2020-12-03] MEDS: FORMOTEROL FUMARATE NEB 20 MCG/2 ML INH SCH ×2 (07:34→19:01)
[2020-12-03] MEDS: IPRATROPIUM/ALBUTEROL 3 ML NEB INH SCH ×4 (07:34→19:01)
[2020-12-03] MEDS: CHLORHEXIDINE GLUCONATE 15 ML UDC PO SCH ×2 (09:03→20:49)
[2020-12-03] MEDS: ENOXAPARIN 40 MG/0.4 ML SYRINGE SUBQ SCH (09:03)
[2020-12-03] MEDS: DEXAMETHASONE 4 MG/ML VIAL IVP SCH (09:03)
[2020-12-03] MEDS: levoFLOXacin 750 MG/150 ML 750 MG/150 ML BAG IV SCH (10:39)
[2020-12-03] MEDS: LORazepam 2 MG/ML VIAL IVP PRN ×2 (11:48→13:42)
[2020-12-03 11:59] LABS: ABG BASE EXCESS -8.4 mmol/L (-2.0-3.0); ABG HCO3 17.5 mmol/L (22.0-26.0); ABG PCO2 37 mmHg (34-45); ABG PH 7.29 (7.35-7.45); ABG TCO2 18.6 MMOL/L (21.0-29.0); ALLEN TEST POSITIVE
[2020-12-03 12:00] LABS: ABG MODE OF VENTILATION ASSIST/CONTROL; ABG RESPIRATORY RATE 20 b/min
[2020-12-03 12:01] LABS: ABG OXYGEN SATURATION 81 % (94-98); ABG PO2 53 mmHg (80-100)
[2020-12-03] MEDS ORDERED: ROCURONIUM 50 MG/5 ML VIAL ONE (13:33)
[2020-12-03] MEDS: SODIUM CHLORIDE 0.9% 500 ML IV PRN (13:41)
[2020-12-03] MEDS: CARBOXYMETHYLCELLULOSE OPHTH DROPS EACHEYE PRN (13:43)
[2020-12-03] MEDS ORDERED: PROPOFOL 200 MG/20 ML VIAL IVP ONE (13:45)
[2020-12-03] MEDS ORDERED: SODIUM CHLORIDE 0.9% 250 ML IV ONE (13:47)
--- NOTE | 2020-12-03 14:17 | CONSULTATION NOTE ---
Consultation Report: Called to assist with positioning patient prone. Rocuronium 50 mg IVPx1 given. Patient placed prone with assistance of 6 RN/RT staff. Patient face, ears, eyes free of pressure. Patient tolerated procedure well.
--- NOTE | 2020-12-03 16:01 | PROVIDER PROGRESS NOTE ---
Assessment/Plan - Problem List (1) Acute respiratory failure with hypoxia Assessment/Plan: She needed increased vent settings when she was supine on the vent. She had improved sats and volumes when proned for about 6 hours yesterday. We will plan to do proning daily, increasing the duration. Anesthesia is involved and following along with us. While on the ventilator, she is requiring Precedex drip and added Fentanyl drip and Versed drip. Her drug resistance appears to be from high narcotic use for pain management (per my conversation with the yesterday. The explained that she takes her [place] 4 times a day but that she has gone to "pain management", but she has completely stopped alcohol intake according to him, several years ago). She started ng feeds last evening. These can continue when she is prone, per Jyotsna, [employer], must be in reverse Trandelenburg; Nutrition assistance a ppreciated. ABGs being done after vent changes. (2) Pneumonia due to COVID-19 virus Assessment/Plan: The patient is not a candidate for Remdesivir, per Pharmacy. Continue with IV Decadron and Lovenox treatments. She was also put on empiric iv antibiotics, starting with Rocephin and azithromycin for possible bacterial CAP, which was then broadened to iv Azithro, plus Cefepime and Vanco, Vanco was stopped. Pharmacist advised we add iv Levaquin and stop Azithro, which was done. Proning while on the vent will be done daily, as described in #1 above. (3) Asthma with acute exacerbation Qualifiers: Asthma severity: severe Assessment/Plan: Her asthma may be the reason for most of her morbidity with Covid being so severe. But on exam, she does not have severe wheezing. We will still continue regular dose DuoNeb. As needed albuterol. Long-acting bronchodilator. Long-acting steroid. And IV steroids. (4) SVT (supraventricular tachycardia) Assessment/Plan: She was put on iv Diltiazem drip at 5 mg/hr. This suppressed SVT and Dilt drip was stopped for a HR of 40's. Yesterday, she went into PSVT at 160 and dropped her BP to 99. The SVT broke spontaneously. Continue very low dose iv Dilt drip. (5) OLI (acute kidney injury) Assessment/Plan: She has a slowly improving BUN/creat daily, with iv hydration. Getting ng feeds also. (6) Hyperglycemia Assessment/Plan: Persistent high glu of 180-200's are most likely secondary to steroid use. Will start sliding scale insulin coverage (7) Hx of essential hypertension Assessment/Plan: She continues to be normotensive or have "soft" BP Still holding off on her blood pressure medications until she becomes consistently hypertensive. (8) Hypokalemia Assessment/Plan: Resolved with K felicia for replacement - Current Meds Current Meds: Current Medications Generic Name Dose Route Start Last Admin Trade Name Freq PRN Reason Stop Dose Admin Albuterol 2.5 mg 11/30/20 15:42 12/01/20 04:38 Albuterol Neb 2.5 Mg/3 Ml INH 2.5 mg Q4HR PRN Administration Dyspnea Albuterol/Ipratropium 3 ml 11/30/20 07:00 12/03/20 15:30 Ipratropium/Albuterol 3 Ml Neb INH 3 ml RTQID KEVEN Administration Budesonide 0.5 mg 11/30/20 07:00 12/03/20 07:34 Budesonide 0.5 Mg/2 Ml Neb INH 0.5 mg RTBID KEVEN Administration Carboxymethylcellulose 1 drops 12/02/20 08:38 12/03/20 13:43 Carboxymethylcellulose Ophth Drops EACHEYE 1 ea PRN PRN Administration Dry Eye Chlorhexidine Gluconate 15 ml 11/30/20 09:00 12/03/20 09:03 Chlorhexidine Gluconate 15 Ml Udc PO 15 ml BID KEVEN Administration Dexamethasone 6 mg 11/30/20 09:00 12/03/20 09:03 Dexamethasone 4 Mg/Ml Vial IVP 6 mg DAILY KEVEN Administration Enoxaparin Sodium 40 mg 12/01/20 11:00 12/03/20 09:03 Enoxaparin 40 Mg/0.4 Ml Syringe SUBQ 40 mg DAILY KEVEN Administration Formoterol Fumarate 20 mcg 11/30/20 07:00 12/03/20 07:34 Formoterol Fumarate Neb 20 Mcg/2 Ml INH 20 mcg RTBID KEVEN Administration Acetaminophen 100 mls @ 400 mls/hr 11/30/20 10:18 12/03/20 09:56 Ofirmev IV Infused Q6HR PRN Infusion Pain or Fever > 38C (100.4F) Fentanyl 2,500 mcg in 250 mls @ 11.6 mls/hr 12/01/20 10:00 12/03/20 14:09 Fentanyl IV 10 mcg/kg/hr .[id number] KEVEN 116 mls/hr Administration Protocol 1 MCG/KG/HR Sodium Chloride 500 mls @ 20 mls/hr 12/01/20 11:50 12/03/20 13:41 Normal Saline 0.9% IV 20 mls/hr Q24H PRN Administration TKO RATE Diltiazem HCl 125 mg/ Dextrose 125 mls @ 2.5 mls/hr 12/01/20 16:11 12/01/20 16:31 IV Not Given .Q50H KEVEN 2.5 MG/HR Levofloxacin 750 mg in 150 mls @ 100 mls/hr 12/02/20 11:00 12/03/20 12:29 Levaquin 750 Mg/150 Ml IV Infused Q24H KEVEN Infusion Midazolam HCl 50 mg in 100 mls @ 9.4 mls/hr 12/02/20 13:00 12/03/20 15:37 Versed Drip IV 0.1 mg/kg/hr .[id number] KEVEN 23.5 mls/hr Administration Protocol 0.04 MG/KG/HR Dexmedetomidine HCl 1,000 mcg/ 260 mls @ 45.825 mls/hr 12/02/20 19:00 12/03/20 08:15 Sodium Chloride IV 1.5 mcg/kg/hr .[id number] KEVEN 45.825 mls/hr Administration Protocol 1.5 MCG/KG/HR Cefepime HCl 2 gm/ Sodium 100 mls @ 200 mls/hr 12/03/20 13:03 12/03/20 14:20 Chloride IV Infused Q8H KEVEN Infusion Lorazepam 0.5 mg 11/29/20 22:39 12/03/20 13:42 Lorazepam 2 Mg/Ml Vial IVP 0.5 mg Q2H PRN Administration Anxiety Multi-Ingred Cream/Lotion/Oil/Oint 1 applic 12/02/20 08:39 12/02/20 09:30 Mineral Oil/Petrolat Ophth Oint EACHEYE 1 applic QPM PRN Administration Dry Eye Pantoprazole Sodium 40 mg 11/30/20 07:00 12/03/20 06:06 Pantoprazole 40 Mg Vial IVP 40 mg QDAC KEVEN Administration Sodium Chloride 10 ml 11/30/20 01:00 12/03/20 11:51 Sodium Chloride Flush 0.9% 10 Ml Syringe IVP 10 ml 0100,0900,1700 KEVEN Administration Sodium Chloride 10 ml 11/29/20 19:01 12/01/20 10:54 Sodium Chloride Flush 0.9% 10 Ml Syringe IVP 10 ml PRN PRN Administration NEEDED PER PROVIDER ORDERS - Lab Result Fish Bone Diagrams: 12/03/20 04:10 12/03/20 04:10 - Additional Planning My Orders: My Active Orders 12/02/20 19:00 Sodium Chloride 0.9% [Normal Saline 0.9%] 250 ml Dexmedetomidine [Precedex] 1 ,000 mcg IV 1.5 mcg/kg/hr 12/03/20 10:52 RT - Obtain Arterial Specimen [RC] .ONCE 12/03/20 12:46 Tube Feeding [RC] QSHIFT 12/04/20 05:00 COMPREHENSIVE METABOLIC PANEL [CHEM] Timed MAGNESIUM [CHEM] Timed PHOSPHORUS [CHEM] Timed 12/05/20 05:00 COMPREHENSIVE METABOLIC PANEL [CHEM] Timed MAGNESIUM [CHEM] Timed PHOSPHORUS [CHEM] Timed PREALBUMIN [CHEM] Timed 12/08/20 05:00 COMPREHENSIVE METABOLIC PANEL [CHEM] Timed MAGNESIUM [CHEM] Timed PHOSPHORUS [CHEM] Timed PREALBUMIN [CHEM] Timed Subjective - Subjective Patient Reports: Other (She is sedated, on the vent) Objective Vital Signs: Vital Signs - 24 hr 12/02/20 12/02/20 12/02/20 17:00 17:17 18:00 Temperature 39.6 C H Heart Rate 79 Heart Rate [ 74 Monitoring electrodes] Respiratory 22 32 H Rate Blood Pressure 144/72 H 145/70 H [Right Brachial artery] O2 Saturation 100 92 12/02/20 12/02/20 12/02/20 19:00 20:00 21:00 Temperature 39.3 C H 39.1 C H 38.8 C H Heart Rate Heart Rate [ 73 72 73 Monitoring electrodes] Respiratory 30 H 14 15 Rate Blood Pressure 136/63 H 129/70 123/65 [Right Brachial artery] O2 Saturation 97 94 94 12/02/20 12/02/20 12/02/20 21:29 22:00 23:00 Temperature 38.8 C H 38.7 C H Heart Rate 17 L Heart Rate [ 68 57 L Monitoring electrodes] Respiratory 28 H 28 H Rate Blood Pressure 134/68 H 150/78 H [Right Brachial artery] O2 Saturation 100 100 12/02/20 12/02/20 12/03/20 23:15 23:17 00:00 Temperature 38.7 C H Heart Rate 55 L 57 L Heart Rate [ 61 Monitoring electrodes] Respiratory 28 H 28 H Rate Blood Pressure 157/71 H [Right Brachial artery] O2 Saturation 100 12/03/20 12/03/20 12/03/20 01:00 02:00 03:00 Temperature 38.6 C H Heart Rate 62 Heart Rate [ 62 61 61 Monitoring electrodes] Respiratory 28 H 28 H 28 H Rate Blood Pressure 158/74 H 155/77 H 153/67 H [Right Brachial artery] O2 Saturation 100 100 98 12/03/20 12/03/20 12/03/20 04:00 04:23 05:00 Temperature 38.5 C H 38.4 C H Heart Rate 59 L Heart Rate [ 60 61 Monitoring electrodes] Respiratory 28 H 28 H Rate Blood Pressure 151/72 H 147/71 H [Right Brachial artery] O2 Saturation 98 98 12/03/20 12/03/20 12/03/20 05:43 06:00 07:00 Temperature 38.2 C H 38.1 C H Heart Rate 59 L Heart Rate [ 60 60 Monitoring electrodes] Respiratory 28 H 28 H Rate Blood Pressure 151/81 H 149/71 H [Right Brachial artery] O2 Saturation 97 98 12/03/20 12/03/20 12/03/20 07:23 07:37 08:00 Temperature 38.0 C H Heart Rate 57 L 62 Heart Rate [ 63 Monitoring electrodes] Respiratory 28 H 28 H Rate Blood Pressure 138/74 H [Right Brachial artery] O2 Saturation 99 12/03/20 12/03/20 12/03/20 08:30 09:00 09:16 Temperature 37.9 C 37.8 C Heart Rate 61 Heart Rate [ 67 59 L Monitoring electrodes] Respiratory 28 H 28 H Rate Blood Pressure 137/87 H [Right Brachial artery] O2 Saturation 94 96 12/03/20 12/03/20 12/03/20 10:00 11:00 12:00 Temperature 37.8 C 38.2 C H Heart Rate Heart Rate [ 62 68 79 Monitoring electrodes] Respiratory 28 H 20 18 Rate Blood Pressure 136/71 H 137/81 H 123/65 [Right Brachial artery] O2 Saturation 96 96 88 L 12/03/20 12/03/20 12/03/20 13:00 14:00 15:00 Temperature 38.2 C H 37.5 C 37.6 C Heart Rate Heart Rate [ 83 88 Monitoring electrodes] Respiratory 17 20 20 Rate Blood Pressure 139/62 H 117/63 124/63 [Right Brachial artery] O2 Saturation 86 L 95 93 Oxygen O2 Source Mechanical ventilator Oxygen Flow Rate 15 I&O (Last 24 Hrs): Intake and Output Totals x24h 12/01/20 12/02/20 12/03/20 23:59 23:59 23:59 Intake Total 2878.006 4286.262 4403.127 Output Total 1517 3913 1330 Balance 1361.006 722.731 3930.127 General: Other (Exam done via RN reports and through visualizing at window) HEENT: Other (Sedated, currently prone, ET and ng tubes in place) Neuro: Other (Sedated) Cardiovascular: Regular rate Respiratory: Other (On vent) Extremities: No edema - Results Results: Laboratory Results WBC 14.1 x10^3/uL (4.8-10.8) H 12/03/20 04:10 RBC 3.58 10^6/uL (4.20-5.40) L 12/03/20 04:10 Hgb 10.9 g/dL (12.0-16.0) L 12/03/20 04:10 Hct 34.4 % (37.0-47.0) L 12/03/20 04:10 MCV 96.1 fL (81.0-99.0) 12/03/20 04:10 MCH 30.4 pg (27.0-31.0) 12/03/20 04:10 MCHC 31.7 g/dL (32.0-36.0) L 12/03/20 04:10 RDW 13.2 % (12.0-15.0) 12/03/20 04:10 Plt Count 189 10^3/uL (130-450) 12/03/20 04:10 MPV 9.6 fL (7.9-10.8) 12/03/20 04:10 Neut # (Auto) Not Reportable 12/03/20 04:10 Lymph # (Auto) Not Reportable 12/03/20 04:10 [place] # (Auto) Not Reportable 12/03/20 04:10 Eos # (Auto) Not Reportable 12/03/20 04:10 Baso # (Auto) Not Reportable 12/03/20 04:10 Absolute Nucleated RBC Not Reportable 12/03/20 04:10 Total Counted 100 12/03/20 04:10 Band Neuts % (Manual) 4 % (0-10) 12/03/20 04:10 Abnorm Lymph % (Manual) 0 % 12/03/20 04:10 Metamyelocytes % 3 % (-0) H 12/02/20 04:30 Myelocytes % 3 % (-0) H 12/02/20 04:30 Nucleated RBC % Not Reportable 12/03/20 04:10 Neutrophils # (Manual) 12.1 10^3/uL (1.5-6.6) H 12/03/20 04:10 Lymphocytes # (Manual) 1.3 10^3/uL (1.5-3.5) L 12/03/20 04:10 Monocytes # (Manual) 0.7 10^3/uL (0.0-1.0) 12/03/20 04:10 Eosinophils # (Manual) 0.0 10^3/uL (0-0.7) 12/03/20 04:10 Basophils # (Manual) 0.0 10^3/uL (0-0.1) 12/03/20 04:10 Differential Comment MANUAL DIFFERENTIAL 12/03/20 04:10 WBC Morphology NORMAL APPEARANCE (NORMAL) 11/30/20 05:12 Platelet Estimate NORMAL (130-450,000) (NORMAL) 12/03/20 04:10 Platelet Morphology NORMAL APPEARANCE (NORMAL) 11/30/20 05:12 RBC Morph Micro Appear NORMAL APPEARANCE (NORMAL) 12/03/20 04:10 PT 15.4 secs (9.9-12.6) H 11/29/20 18:41 INR 1.4 (0.8-1.2) H 11/29/20 18:41 D-Dimer > 1050.0 ng/mL (200.0-255.0) H 12/03/20 04:10 Bld Gas Analysis Time 1153 12/03/20 11:53 Sample Site LEFT RADIAL 12/03/20 11:53 ABG pH 7.29 (7.35-7.45) L 12/03/20 11:53 ABG pCO2 37 mmHg (34-45) 12/03/20 11:53 ABG pO2 53 mmHg (80-100) L* 12/03/20 11:53 ABG HCO3 17.5 mmol/L (22.0-26.0) L 12/03/20 11:53 ABG Total CO2 18.6 MMOL/L (21.0-29.0) L 12/03/20 11:53 ABG O2 Saturation 81 % (94-98) L* 12/03/20 11:53 ABG Base Excess -8.4 mmol/L (-2.0-3.0) L 12/03/20 11:53 Luis Antonio Test POSITIVE 12/03/20 11:53 VBG pH 7.406 (7.31-7.41) 11/29/20 18:41 VBG pCO2 34.4 mmHg (41-51) L 11/29/20 18:41 VBG pO2 26.2 mmHg (25-47) 11/29/20 18:41 VBG HCO3 21.1 mmol/L (23-28) L 11/29/20 18:41 VBG Total CO2 22.2 mmol/L (24-29) L 11/29/20 18:41 VBG O2 Saturation 48.7 % (60-80) L 11/29/20 18:41 VBG Base Excess -2.8 mmol/L (-2 - +2) L 11/29/20 18:41 Respiration Rate 20 b/min 12/03/20 11:53 O2 Delivery Device VENTILATOR 12/03/20 11:53 Vent Mode ASSIST/CONTROL 12/03/20 11:53 FiO2 80.00 12/03/20 11:53 Tidal Volume 700 mL 12/03/20 11:53 PEEP 10 cmH2O 12/03/20 11:53 Pressure Support Vent 10 cmH2O 11/30/20 05:05 Sodium 141 mmol/L (135-145) 12/03/20 04:10 Potassium 4.1 mmol/L (3.5-5.0) 12/03/20 04:10 Chloride 111 mmol/L (101-111) 12/03/20 04:10 Carbon Dioxide 19 mmol/L (21-32) L 12/03/20 04:10 Anion Gap 11.0 (6-13) 12/03/20 04:10 BUN 26 mg/dL (6-20) H 12/03/20 04:10 Creatinine 0.9 mg/dL (0.4-1.0) 12/03/20 04:10 Estimated GFR (MDRD) 63 (>89) L 12/03/20 04:10 Glucose 200 mg/dL (70-100) H 12/03/20 04:10 POC Whole Bld Glucose 255 mg/dL (70 - 100) H 12/03/20 11:37 Lactic Acid 1.5 mmol/L (0.5-2.2) 11/30/20 05:12 Calcium 8.3 mg/dL (8.5-10.3) L 12/03/20 04:10 Phosphorus 2.6 mg/dL (2.5-4.6) 12/03/20 04:10 Magnesium 2.0 mg/dL (1.7-2.8) 12/03/20 04:10 Total Bilirubin 1.2 mg/dL (0.2-1.0) H 12/03/20 04:10 Direct Bilirubin 0.3 mg/dL (0.1-0.5) 12/01/20 05:30 AST 15 IU/L (10-42) 12/03/20 04:10 ALT 38 IU/L (10-60) 12/03/20 04:10 Alkaline Phosphatase 98 IU/L (42-121) 12/03/20 04:10 Troponin I High Sens 14.9 ng/L (2.3-14.8) H* 11/30/20 05:12 Total Protein 5.8 g/dL (6.7-8.2) L 12/03/20 04:10 Albumin 2.0 g/dL (3.2-5.5) L 12/03/20 04:10 Globulin 3.8 g/dL (2.1-4.2) 12/03/20 04:10 Albumin/Globulin Ratio 0.5 (1.0-2.2) L 12/03/20 04:10 Prealbumin 13 mg/dL (18-45) L 12/03/20 04:10 Triglycerides 344 mg/dL (-149) H 12/01/20 05:30 Nasal Screen MRSA (PCR) NEGATIVE (NEGATIVE) 11/29/20 21:15 - Procedures Procedures: Procedures CARPAL TUNNEL RELEASE (04/16/13) DESTRUCT-KNEE LESION NEC (07/09/14) EXCIS KNEE SEMILUN CARTL (07/09/14) EXPLOR TEND SHEATH-HAND (04/16/13)
[2020-12-03] MEDS: diltiaZEM INJ 125 MG in DEXTROSE 5% 100 ML IV SCH (16:38)
[2020-12-03] MEDS ORDERED: INSULIN ASPART 300 UNIT/3 ML PEN SUBQ SCH (17:00)
[2020-12-03] MEDS ORDERED: FUROSEMIDE 20 MG/2 ML VIAL IVP STA ×2 (18:16→22:13)
[2020-12-03] MEDS: SODIUM CHLORIDE FLUSH 0.9% 10 ML SYRINGE IVP PRN (18:27)
--- NOTE | 2020-12-03 20:21 | CONSULTATION NOTE ---
Consultation Report: Called by Hospitalist to assist with placing patient supine from prone. Patient flipped supine with RN and RT assist. Pt SpO2 improved to 98%, vital signs stable.
[2020-12-03 20:28] LABS: ABG BASE EXCESS -5.8 mmol/L (-2.0-3.0); ABG HCO3 20.6 mmol/L (22.0-26.0); ABG PCO2 44 mmHg (34-45); ABG PH 7.29 (7.35-7.45); ABG TCO2 21.9 MMOL/L (21.0-29.0)
[2020-12-03 20:29] LABS: ABG MODE OF VENTILATION ASSIST/CONTROL; ALLEN TEST POSITIVE
[2020-12-03 20:30] LABS: ABG RESPIRATORY RATE 20 b/min
[2020-12-03 20:32] LABS: ABG OXYGEN SATURATION 82 % (94-98); ABG PO2 51 mmHg (80-100)
--- NOTE | 2020-12-03 22:19 | PROVIDER PROGRESS NOTE ---
Hospital Housekeeper Note - Hospital Housekeeper Note Hospital Housekeeper Note: On assist control mode with an FiO2 of 0.8, tidal volume 700 and PEEP of 15, patient's pH was 7.29, PCO2 44, PO2 51 and bicarb 20.6. O2Sat was 82. Patient's respiratory rate was 18. Systolic blood pressure 120s, heart rate 91. Patient appeared to be using accessory muscles for breathing. Chest x-ray did not show any significant change. There was still extensive bilateral pulmonary consolidation. FiO2 was increased to 1 and gave another dose of lasix 20mg IV X1 I had a conversation with the patient's and children, highlighting that the patient's condition was critical. Further that there was a significant chance her clinical status could take a t urn for the worse overnight. I addressed the topic of her CODE STATUS and asked if the wanted to consider making the patient DNR. We discussed the different options on the POLST form. The family maintains that they want to keep the patient as a Full Code.
[2020-12-03] MEDS: INSULIN REGULAR HUMAN 300 UNIT/3 ML VIAL SUBQ SCH (23:50)
[2020-12-04] MEDS: MIDAZOLAM DRIP 50 MG/100 ML BAG IV SCH ×5 (00:34→20:17)
[2020-12-04] MEDS: fentaNYL 2,500 MCG/250 ML 2,500 MCG/250 ML BAG IV SCH ×7 (02:24→21:08)
[2020-12-04] MEDS: SODIUM CHLORIDE FLUSH 0.9% 10 ML SYRINGE IVP PRN ×2 (04:40→06:25)
[2020-12-04] MEDS: CEFEPIME 2 GM in SODIUM CHLORIDE 0.9% MINIBAG 100 ML IV SCH ×3 (04:57→20:37)
[2020-12-04 05:24] LABS: BASOPHILS # (AUTO) 0.1 10^3/uL (0.0-0.1); BASOPHILS % (AUTO) 0.3 %; HCT - HEMATOCRIT 33.9 % (37.0-47.0); HGB - HEMOGLOBIN 10.6 g/dL (12.0-16.0); LYMPHOCYTES # (AUTO) 0.7 10^3/uL (1.5-3.5); LYMPHOCYTES % (AUTO) 3.5 %; MEAN CORPUSCULAR HEMOGLOBIN 30.2 pg (27.0-31.0); MEAN CORPUSCULAR HGB CONC 31.3 g/dL (32.0-36.0); MEAN CORPUSCULAR VOLUME 96.6 fL (81.0-99.0); MEAN PLATELET VOLUME 10.3 fL (7.9-10.8); MONOCYTES # (AUTO) 0.6 10^3/uL (0.0-1.0); MONOCYTES % (AUTO) 3.2 %; NEUTROPHILS # (AUTO) 17.5 10^3/uL (1.5-6.6); NEUTROPHILS % (AUTO) 88.7 %; NRBC ABSOLUTE COUNT (AUTO) 0.02 x10^3/uL; NUCLEATED RED BLOOD CELLS AUTO 0.1 /100WBC; PLT - PLATELET COUNT 198 10^3/uL (130-450); RED BLOOD COUNT 3.51 10^6/uL (4.20-5.40); RED CELL DISTRIBUTION WIDTH 13.7 % (12.0-15.0); WHITE BLOOD COUNT 19.8 x10^3/uL (4.8-10.8)
[2020-12-04 05:26] LABS: SLIDE REVIEW? Indicated
[2020-12-04 05:37] LABS: ALBUMIN 2.1 g/dL (3.2-5.5); ALBUMIN/GLOBULIN RATIO 0.6 (1.0-2.2); CALCIUM 8.6 mg/dL (8.5-10.3); CREATININE 0.9 mg/dL (0.4-1.0); POTASSIUM 4.4 mmol/L (3.5-5.0); TOTAL PROTEIN 5.8 g/dL (6.7-8.2)
[2020-12-04 05:38] LABS: MAGNESIUM 2.2 mg/dL (1.7-2.8); PHOSPHORUS 2.9 mg/dL (2.5-4.6)
[2020-12-04 05:51] LABS: PLATELET ESTIMATE, MANUAL NORMAL (130-450,000) (NORMAL); PLATELET MORPHOLOGY NORMAL APPEARANCE (NORMAL); RBC MORPHOLOGY (MULTIPLE) NORMAL APPEARANCE (NORMAL); WBC MORPHOLOGY (MULTIPLE) NORMAL APPEARANCE (NORMAL)
[2020-12-04] MEDS: DEXMEDETOMIDINE 1,000 MCG in SODIUM CHLORIDE 0.9% 250 ML IV SCH ×5 (06:20→23:42)
[2020-12-04] MEDS: ACETAMINOPHEN 1,000 MG/100 ML 100 ML IV PRN ×3 (06:25→22:15)
[2020-12-04] MEDS: PANTOPRAZOLE 40 MG VIAL IVP SCH (06:25)
[2020-12-04] MEDS: INSULIN REGULAR HUMAN 300 UNIT/3 ML VIAL SUBQ SCH ×4 (06:29→23:47)
[2020-12-04 07:03] LABS: ESTIMATED AVERAGE GLUCOSE 140 mg/dL (70-100); HEMOGLOBIN A1c% 6.5 % (4.27-6.07)
[2020-12-04] MEDS: FORMOTEROL FUMARATE NEB 20 MCG/2 ML INH SCH ×2 (07:20→21:00)
[2020-12-04] MEDS: BUDESONIDE 0.5 MG/2 ML NEB INH SCH ×2 (07:20→21:00)
[2020-12-04] MEDS: IPRATROPIUM/ALBUTEROL 3 ML NEB INH SCH ×4 (07:20→21:00)
--- NOTE | 2020-12-04 08:18 | XRAY Report ---
PROCEDURE: Chest 1 View X-Ray INDICATIONS: dyspnea and hypoxia TECHNIQUE: One view of the chest was acquired. COMPARISON: Recent chest plain films 1 and 2 days prior. FINDINGS: Surgical changes and devices: Endotracheal tube has been withdrawn to the mid clavicular head axial l evel, no longer approaching the right mainstem bronchus. Esophagogastric tube extends below the imagi ng margin, with side-port also below. Central line from right-sided approach extends to the mid super ior vena cava region.. Lungs and pleura: No pleural effusions or pneumothorax. Lungs are unchanged with generalized alveol ar consolidation that is moderately severe. Considering differences in technique there may have been a slight improvement at the lung bases.. Mediastinum: Mediastinal contours appear normal. Heart size is at the upper limits of normal. Bones and chest wall: No suspicious bony lesions. Overlying soft tissues appear unremarkable. IMPRESSION: Moderately severe to severe alveolar consolidation throughout the lung parenchyma bilaterally, with p ossible slight improvement at the lung bases. Lines and tubes are in normal position, and the endotra cheal tube no longer approaches the right mainstem bronchus. Heart size is at the upper limits of nor mal. Reviewed by: Gurvinder Vital MD on 12/04/2020 8:16 AM PST Approved by: Gurvinder Vital MD on 12/04/2020 8:16 AM PST Station ID: [id number]
[2020-12-04] MEDS: ENOXAPARIN 40 MG/0.4 ML SYRINGE SUBQ SCH (08:50)
[2020-12-04] MEDS: CHLORHEXIDINE GLUCONATE 15 ML UDC PO SCH ×2 (08:50→20:18)
[2020-12-04] MEDS: DEXAMETHASONE 4 MG/ML VIAL IVP SCH (08:50)
[2020-12-04 08:51] LABS: ABG BASE EXCESS -4.6 mmol/L (-2.0-3.0); ABG HCO3 21.5 mmol/L (22.0-26.0); ABG OXYGEN SATURATION 89 % (94-98); ABG PCO2 44 mmHg (34-45); ABG PH 7.31 (7.35-7.45); ABG PO2 61 mmHg (80-100); ABG TCO2 22.9 MMOL/L (21.0-29.0); ALLEN TEST POSITIVE
[2020-12-04] MEDS: SODIUM CHLORIDE FLUSH 0.9% 10 ML SYRINGE IVP SCH ×3 (08:51→23:25)
[2020-12-04 08:52] LABS: ABG MODE OF VENTILATION ASSIST/CONTROL
[2020-12-04 08:53] LABS: ABG RESPIRATORY RATE 20 b/min
[2020-12-04] MEDS: CARBOXYMETHYLCELLULOSE OPHTH DROPS EACHEYE PRN (08:57)
[2020-12-04] MEDS: levoFLOXacin 750 MG/150 ML 750 MG/150 ML BAG IV SCH (11:11)
[2020-12-04] MEDS: metroNIDAZOLE 500 MG/100 ML 500 MG/100 ML BAG IV SCH ×2 (12:44→20:18)
--- NOTE | 2020-12-04 13:31 | PROVIDER PROGRESS NOTE ---
Assessment/Plan - Problem List (1) Acute respiratory failure with hypoxia Assessment/Plan: After worsening during proning yesterday evening, she spent the whole night supine. Today she was proned at about 0900 and plan is to be proned until approx 1500. This morning's chest x-ray had moderate to severe bilateral consolidation, slight improvement at the bases. He is still having high fevers every day. The white blood count is elevated plateaued at about 14. She is getting Decadron which could be the cause. Since there was a history of needing tubes replaced by ENT, and since she has been on the ventilator for 5 days, I will add Flagyl for anaerobic coverage for possible sinusitis. For nutrition while on the vent, ng tube was placed 2 days ago, and ng feedings were started 2 days ago. Yesterday she worsened and had retained gastric secretions, green drainage was suctioned out of the NG tube. Anesthesia stopped the ng feeds yesterday and put the ng to suction. The feedings are now on hold. Continue treating the underlying viral and possible bacterial infection, vent support, inhalers, steroids. (2) Pneumonia due to COVID-19 virus Assessment/Plan: The patient was not a candidate to get remdesivir because she was on a ventilator (per protocol). She is getting Decadron and Lovenox. He is still having high fevers every day. She has bilateral severe consolidation on today's chest x-ray, but slight improvement at the bases. Yesterday she was at maximum settings on the ventilator and despite this was desaturating. The family was allowed to visit because concerned that she would not survive. The family met with the capacity manager. The family wants everything done, she remains a full code. Continue with the present plan with Decadron, Lovenox, empiric IV antibiotics. (3) Asthma with acute exacerbation Qualifiers: Asthma severity: severe Assessment/Plan: History of asthma added to the current condition. Continue with bronchodilator treatments, steroids (4) SVT (supraventricular tachycardia) Assessment/Plan: Diltiazem at a low drip rate is continuing for having 2 separate episodes of sustained SVT. The SVT is now suppressed on diltiazem. I will change the Dilt drip order to scheduled IV pushes of diltiazem. (5) Prerenal azotemia Assessment/Plan: Her creatinine improved by day 3 with IV fluids. Her BUN/creatinine ratio is still elevated. Continue with gentle IV hydration, especially since NG feeds are on hold. She has needed individual doses of IV Lasix when her breath sounds appear rhonchorous however. (6) Hyperglycemia Assessment/Plan: Glucoses have been over 180. Henriette to be due to Decadron treatment daily. A1c was checked and came back at 6.5. Yesterday a sliding scale insulin coverage has been started to cover those glucose results. (7) Hx of essential hypertension Assessment/Plan: Her BP meds are on hold because she has a normal or soft blood pressure (8) Constipation Assessment/Plan: A reason that she may have had gastric green bile suction was that she has not had a BM in about 4 days. We will start Reglan scheduled. Will consider a suppository. We will resume NG tube feeds when she is supine (9) Hypokalemia Assessment/Plan: Resolved with replacement. (10) OLI (acute kidney injury) Assessment/Plan: At admission creatinine was 1.4. This resolved by day 3 with IV hydration. - Current Meds Current Meds: Current Medications Generic Name Dose Route Start Last Admin Trade Name Freq PRN Reason Stop Dose Admin Albuterol 2.5 mg 11/30/20 15:42 12/01/20 04:38 Albuterol Neb 2.5 Mg/3 Ml INH 2.5 mg Q4HR PRN Administration Dyspnea Albuterol/Ipratropium 3 ml 11/30/20 07:00 12/04/20 10:47 Ipratropium/Albuterol 3 Ml Neb INH 3 ml RTQID KEVEN Administration Budesonide 0.5 mg 11/30/20 07:00 12/04/20 07:20 Budesonide 0.5 Mg/2 Ml Neb INH 0.5 mg RTBID KEVEN Administration Carboxymethylcellulose 1 drops 12/02/20 08:38 12/04/20 08:57 Carboxymethylcellulose Ophth Drops EACHEYE 1 ea PRN PRN Administration Dry Eye Chlorhexidine Gluconate 15 ml 11/30/20 09:00 12/04/20 08:50 Chlorhexidine Gluconate 15 Ml Udc PO 15 ml BID KEVEN Administration Dexamethasone 6 mg 11/30/20 09:00 12/04/20 08:50 Dexamethasone 4 Mg/Ml Vial IVP 6 mg DAILY KEVEN Administration Enoxaparin Sodium 40 mg 12/01/20 11:00 12/04/20 08:50 Enoxaparin 40 Mg/0.4 Ml Syringe SUBQ 40 mg DAILY KEVEN Administration Formoterol Fumarate 20 mcg 11/30/20 07:00 12/04/20 07:20 Formoterol Fumarate Neb 20 Mcg/2 Ml INH 20 mcg RTBID KEVEN Administration Acetaminophen 100 mls @ 400 mls/hr 11/30/20 10:18 12/04/20 06:41 Ofirmev IV Infused Q6HR PRN Infusion Pain or Fever > 38C (100.4F) Fentanyl 2,500 mcg in 250 mls @ 11.6 mls/hr 12/01/20 10:00 12/04/20 12:24 Fentanyl IV Infused .[id number] KEVEN Titration Protocol 1 MCG/KG/HR Sodium Chloride 500 mls @ 20 mls/hr 12/01/20 11:50 12/03/20 13:41 Normal Saline 0.9% IV 20 mls/hr Q24H PRN Administration TKO RATE Diltiazem HCl 125 mg/ Dextrose 125 mls @ 2.5 mls/hr 12/01/20 16:11 12/03/20 21:39 IV 2.5 mg/hr .Q50H KEVEN 2.5 mls/hr Infusion 2.5 MG/HR Levofloxacin 750 mg in 150 mls @ 100 mls/hr 12/02/20 11:00 12/04/20 12:43 Levaquin 750 Mg/150 Ml IV Infused Q24H KEVEN Infusion Midazolam HCl 50 mg in 100 mls @ 9.4 mls/hr 12/02/20 13:00 12/04/20 10:00 Versed Drip IV 0.1 mg/kg/hr .[id number] KEVEN 23.5 mls/hr Administration Protocol 0.04 MG/KG/HR Dexmedetomidine HCl 1,000 mcg/ 260 mls @ 45.825 mls/hr 12/02/20 19:00 12/04/20 12:25 Sodium Chloride IV 1.3 mcg/kg/hr .[id number] KEVEN 39.715 mls/hr Administration Protocol 1.5 MCG/KG/HR Cefepime HCl 2 gm/ Sodium 100 mls @ 200 mls/hr 12/03/20 13:03 12/04/20 06:00 Chloride IV Infused Q8H KEVEN Infusion Metronidazole 500 mg in 100 mls @ 100 mls/hr 12/04/20 12:00 12/04/20 12:44 Flagyl 500 Mg/100 Ml IV 100 mls/hr Q8H KEVEN Administration Insulin Human Regular 1 - 5 unit 12/04/20 00:00 12/04/20 12:08 Insulin Regular Human 300 Unit/3 Ml Vial SUBQ 1 unit Q6HR KEVEN Administration Protocol Lorazepam 0.5 mg 11/29/20 22:39 12/03/20 13:42 Lorazepam 2 Mg/Ml Vial IVP 0.5 mg Q2H PRN Administration Anxiety Multi-Ingred Cream/Lotion/Oil/Oint 1 applic 12/02/20 08:39 12/02/20 09:30 Mineral Oil/Petrolat Ophth Oint EACHEYE 1 applic QPM PRN Administration Dry Eye Pantoprazole Sodium 40 mg 11/30/20 07:00 12/04/20 06:25 Pantoprazole 40 Mg Vial IVP 40 mg QDAC KEVEN Administration Sodium Chloride 10 ml 11/30/20 01:00 12/04/20 08:51 Sodium Chloride Flush 0.9% 10 Ml Syringe IVP 10 ml 0100,0900,1700 KEVEN Administration Sodium Chloride 10 ml 11/29/20 19:01 12/04/20 06:25 Sodium Chloride Flush 0.9% 10 Ml Syringe IVP 10 ml PRN PRN Administration NEEDED PER PROVIDER ORDERS - Lab Result Fish Bone Diagrams: 12/04/20 04:41 12/04/20 04:41 - Additional Planning My Orders: My Active Orders 12/03/20 12:46 Tube Feeding [RC] QSHIFT 12/03/20 16:38 Initiate Hypoglycemia Protocol [RC] .protocol 12/03/20 18:18 Miscellaenous Nursing Order [RC] ONCE 12/03/20 19:42 Blood Glucose POC [RC] 0000,0600,1200,1800 12/04/20 00:00 Insulin Regular Human [Humulin R] 1 - 5 unit SUBQ Q6HR 12/04/20 12:00 metroNIDAZOLE 500 MG/100 ML [Flagyl 500 mg/100 ml] 500 mg in 100 ml IV Q8H 12/04/20 12:50 RT - Obtain Arterial Specimen [RC] .ONCE 12/04/20 13:02 ABG - ARTERIAL BLOOD GAS [BG] Stat 12/05/20 05:00 COMPREHENSIVE METABOLIC PANEL [CHEM] Timed MAGNESIUM [CHEM] Timed PHOSPHORUS [CHEM] Timed PREALBUMIN [CHEM] Timed 12/08/20 05:00 COMPREHENSIVE METABOLIC PANEL [CHEM] Timed MAGNESIUM [CHEM] Timed PHOSPHORUS [CHEM] Timed PREALBUMIN [CHEM] Timed Subjective - Subjective Patient Reports: Other (Sedated) Objective Vital Signs: Vital Signs - 24 hr 12/03/20 12/03/20 12/03/20 14:00 15:00 16:00 Temperature 37.5 C 37.6 C 37.3 C Heart Rate Heart Rate [ 88 85 Monitoring electrodes] Respiratory 20 20 20 Rate Blood Pressure Blood Pressure 117/63 124/63 122/57 L [Right Brachial artery] O2 Saturation 95 93 87 L 12/03/20 12/03/20 12/03/20 16:38 17:00 18:00 Temperature 37.3 C Heart Rate Heart Rate [ 87 91 Monitoring electrodes] Respiratory 31 H 21 Rate Blood Pressure 122/57 L Blood Pressure 93/74 109/52 L [Right Brachial artery] O2 Saturation 83 L 65 L 12/03/20 12/03/20 12/03/20 19:00 19:03 19:53 Temperature 38.6 C H Heart Rate 98 92 Heart Rate [ 98 Monitoring electrodes] Respiratory 20 21 Rate Blood Pressure Blood Pressure 106/61 [Right Brachial artery] O2 Saturation 96 12/03/20 12/03/20 12/03/20 20:00 21:00 22:00 Temperature 38.4 C H 38.4 C H 38.5 C H Heart Rate Heart Rate [ 91 83 83 Monitoring electrodes] Respiratory 15 21 19 Rate Blood Pressure Blood Pressure 129/71 146/75 H 145/85 H [Right Brachial artery] O2 Saturation 96 99 97 12/03/20 12/03/20 12/04/20 22:31 23:00 00:13 Temperature 38.6 C H Heart Rate 83 83 Heart Rate [ 83 Monitoring electrodes] Respiratory 23 Rate Blood Pressure Blood Pressure 145/77 H [Right Brachial artery] O2 Saturation 97 12/04/20 12/04/20 12/04/20 00:14 01:00 02:00 Temperature 39 C H 39 C H 39.1 C H Heart Rate Heart Rate [ 83 81 81 Monitoring electrodes] Respiratory 18 23 24 Rate Blood Pressure Blood Pressure 131/72 H 143/7 H 137/74 H [Right Brachial artery] O2 Saturation 99 95 96 12/04/20 12/04/20 12/04/20 02:51 03:00 04:00 Temperature 39.3 C H 39.4 C H Heart Rate 81 Heart Rate [ 81 80 Monitoring electrodes] Respiratory 23 10 L Rate Blood Pressure Blood Pressure 135/70 H 143/89 H [Right Brachial artery] O2 Saturation 96 96 12/04/20 12/04/20 12/04/20 05:00 06:00 06:15 Temperature 39.2 C H 39.2 C H Heart Rate 77 Heart Rate [ 79 77 Monitoring electrodes] Respiratory 12 22 Rate Blood Pressure Blood Pressure 145/73 H 133/74 H [Right Brachial artery] O2 Saturation 98 97 12/04/20 12/04/20 12/04/20 07:00 07:13 07:26 Temperature 39.1 C H Heart Rate 75 80 Heart Rate [ 74 Monitoring electrodes] Respiratory 19 20 Rate Blood Pressure Blood Pressure 133/70 H [Right Brachial artery] O2 Saturation 98 12/04/20 12/04/20 12/04/20 08:00 09:00 09:14 Temperature 38.9 C H 38.7 C H 38.9 C H Heart Rate 83 Heart Rate [ 83 78 Monitoring electrodes] Respiratory 14 18 21 Rate Blood Pressure Blood Pressure 137/75 H 140/74 H [Right Brachial artery] O2 Saturation 93 93 97 12/04/20 12/04/20 12/04/20 09:15 09:58 10:48 Temperature 38.8 C H Heart Rate 77 82 Heart Rate [ 86 Monitoring electrodes] Respiratory 21 Rate Blood Pressure Blood Pressure 131/59 H [Right Brachial artery] O2 Saturation 86 L 12/04/20 12/04/20 12/04/20 10:54 11:00 11:21 Temperature 38.7 C H Heart Rate 83 89 Heart Rate [ 88 Monitoring electrodes] Respiratory 21 20 Rate Blood Pressure Blood Pressure 149/64 H [Right Brachial artery] O2 Saturation 92 12/04/20 12/04/20 12:00 13:06 Temperature 38.6 C H Heart Rate 83 Heart Rate [ 87 Monitoring electrodes] Respiratory 14 Rate Blood Pressure Blood Pressure 145/70 H [Right Brachial artery] O2 Saturation 93 Oxygen O2 Source Mechanical ventilator Oxygen Flow Rate 15 I&O (Last 24 Hrs): Intake and Output Totals x24h 12/02/20 12/03/20 12/04/20 23:59 23:59 23:59 Intake Total 4286.262 6235.669 2558.769 Output Total 3913 2315 2475 Balance 886.962 0938.669 83.769 General: Other (Exam taken from RN and RT reports; she is sedated, on vent, currently prone) HEENT: Other (ng and ET tube in place) Neuro: Other (sedated) Extremities: No edema - Results Results: Laboratory Results WBC 19.8 x10^3/uL (4.8-10.8) H 12/04/20 04:41 RBC 3.51 10^6/uL (4.20-5.40) L 12/04/20 04:41 Hgb 10.6 g/dL (12.0-16.0) L 12/04/20 04:41 Hct 33.9 % (37.0-47.0) L 12/04/20 04:41 MCV 96.6 fL (81.0-99.0) 12/04/20 04:41 MCH 30.2 pg (27.0-31.0) 12/04/20 04:41 MCHC 31.3 g/dL (32.0-36.0) L 12/04/20 04:41 RDW 13.7 % (12.0-15.0) 12/04/20 04:41 Plt Count 198 10^3/uL (130-450) 12/04/20 04:41 MPV 10.3 fL (7.9-10.8) 12/04/20 04:41 Neut # (Auto) 17.5 10^3/uL (1.5-6.6) H 12/04/20 04:41 Lymph # (Auto) 0.7 10^3/uL (1.5-3.5) L 12/04/20 04:41 [place] # (Auto) 0.6 10^3/uL (0.0-1.0) 12/04/20 04:41 Eos # (Auto) 0.0 10^3/uL (0.0-0.7) 12/04/20 04:41 Baso # (Auto) 0.1 10^3/uL (0.0-0.1) 12/04/20 04:41 Absolute Nucleated RBC 0.02 x10^3/uL 12/04/20 04:41 Total Counted 100 12/03/20 04:10 Band Neuts % (Manual) 4 % (0-10) 12/03/20 04:10 Abnorm Lymph % (Manual) 0 % 12/03/20 04:10 Metamyelocytes % 3 % (-0) H 12/02/20 04:30 Myelocytes % 3 % (-0) H 12/02/20 04:30 Nucleated RBC % 0.1 /100WBC 12/04/20 04:41 Neutrophils # (Manual) 12.1 10^3/uL (1.5-6.6) H 12/03/20 04:10 Lymphocytes # (Manual) 1.3 10^3/uL (1.5-3.5) L 12/03/20 04:10 Monocytes # (Manual) 0.7 10^3/uL (0.0-1.0) 12/03/20 04:10 Eosinophils # (Manual) 0.0 10^3/uL (0-0.7) 12/03/20 04:10 Basophils # (Manual) 0.0 10^3/uL (0-0.1) 12/03/20 04:10 Differential Comment MANUAL DIFFERENTIAL 12/03/20 04:10 Manual Slide Review Indicated 12/04/20 04:41 WBC Morphology NORMAL APPEARANCE (NORMAL) 12/04/20 04:41 Platelet Estimate NORMAL (130-450,000) (NORMAL) 12/04/20 04:41 Platelet Morphology NORMAL APPEARANCE (NORMAL) 12/04/20 04:41 RBC Morph Micro Appear NORMAL APPEARANCE (NORMAL) 12/04/20 04:41 PT 15.4 secs (9.9-12.6) H 11/29/20 18:41 INR 1.4 (0.8-1.2) H 11/29/20 18:41 D-Dimer > 1050.0 ng/mL (200.0-255.0) H 12/03/20 04:10 Bld Gas Analysis Time 0857 12/04/20 08:45 Sample Site LEFT RADIAL 12/04/20 08:45 ABG pH 7.31 (7.35-7.45) L 12/04/20 08:45 ABG pCO2 44 mmHg (34-45) 12/04/20 08:45 ABG pO2 61 mmHg (80-100) L 12/04/20 08:45 ABG HCO3 21.5 mmol/L (22.0-26.0) L 12/04/20 08:45 ABG Total CO2 22.9 MMOL/L (21.0-29.0) 12/04/20 08:45 ABG O2 Saturation 89 % (94-98) L 12/04/20 08:45 ABG Base Excess -4.6 mmol/L (-2.0-3.0) L 12/04/20 08:45 Luis Antonio Test POSITIVE 12/04/20 08:45 VBG pH 7.406 (7.31-7.41) 11/29/20 18:41 VBG pCO2 34.4 mmHg (41-51) L 11/29/20 18:41 VBG pO2 26.2 mmHg (25-47) 11/29/20 18:41 VBG HCO3 21.1 mmol/L (23-28) L 11/29/20 18:41 VBG Total CO2 22.2 mmol/L (24-29) L 11/29/20 18:41 VBG O2 Saturation 48.7 % (60-80) L 11/29/20 18:41 VBG Base Excess -2.8 mmol/L (-2 - +2) L 11/29/20 18:41 Respiration Rate 20 b/min 12/04/20 08:45 O2 Delivery Device VENTILATOR 12/04/20 08:45 Vent Mode ASSIST/CONTROL 12/04/20 08:45 FiO2 90.00 12/04/20 08:45 Tidal Volume 700 mL 12/04/20 08:45 PEEP 15 cmH2O 12/04/20 08:45 Pressure Support Vent 10 cmH2O 11/30/20 05:05 Sodium 142 mmol/L (135-145) 12/04/20 04:41 Potassium 4.4 mmol/L (3.5-5.0) 12/04/20 04:41 Chloride 112 mmol/L (101-111) H 12/04/20 04:41 Carbon Dioxide 22 mmol/L (21-32) 12/04/20 04:41 Anion Gap 8.0 (6-13) 12/04/20 04:41 BUN 22 mg/dL (6-20) H 12/04/20 04:41 Creatinine 0.9 mg/dL (0.4-1.0) 12/04/20 04:41 Estimated GFR (MDRD) 63 (>89) L 12/04/20 04:41 Glucose 139 mg/dL (70-100) H 12/04/20 04:41 POC Whole Bld Glucose 141 mg/dL (70 - 100) H 12/04/20 12:00 Estimat Average Glucose 140 mg/dL (70-100) H 12/04/20 04:41 Hemoglobin A1c % 6.5 % (4.27-6.07) H 12/04/20 04:41 Lactic Acid 1.5 mmol/L (0.5-2.2) 11/30/20 05:12 Calcium 8.6 mg/dL (8.5-10.3) 12/04/20 04:41 Phosphorus 2.9 mg/dL (2.5-4.6) 12/04/20 04:41 Magnesium 2.2 mg/dL (1.7-2.8) 12/04/20 04:41 Total Bilirubin 1.0 mg/dL (0.2-1.0) 12/04/20 04:41 Direct Bilirubin 0.3 mg/dL (0.1-0.5) 12/01/20 05:30 AST 20 IU/L (10-42) 12/04/20 04:41 ALT 30 IU/L (10-60) 12/04/20 04:41 Alkaline Phosphatase 101 IU/L (42-121) 12/04/20 04:41 Troponin I High Sens 14.9 ng/L (2.3-14.8) H* 11/30/20 05:12 Total Protein 5.8 g/dL (6.7-8.2) L 12/04/20 04:41 Albumin 2.1 g/dL (3.2-5.5) L 12/04/20 04:41 Globulin 3.7 g/dL (2.1-4.2) 12/04/20 04:41 Albumin/Globulin Ratio 0.6 (1.0-2.2) L 12/04/20 04:41 Prealbumin 13 mg/dL (18-45) L 12/03/20 04:10 Triglycerides 344 mg/dL (-149) H 12/01/20 05:30 Nasal Screen MRSA (PCR) NEGATIVE (NEGATIVE) 11/29/20 21:15 - Procedures Procedures: Procedures CARPAL TUNNEL RELEASE (04/16/13) DESTRUCT-KNEE LESION NEC (07/09/14) EXCIS KNEE SEMILUN CARTL (07/09/14) EXPLOR TEND SHEATH-HAND (04/16/13)
[2020-12-04 13:39] LABS: ABG PCO2 37 mmHg (34-45); ABG PH 7.41 (7.35-7.45)
[2020-12-04 13:40] LABS: ABG BASE EXCESS -1.3 mmol/L (-2.0-3.0); ABG HCO3 22.9 mmol/L (22.0-26.0); ABG PO2 59 mmHg (80-100)
[2020-12-04 13:49] LABS: ABG OXYGEN SATURATION 91 % (94-98); ALLEN TEST POSITIVE
[2020-12-04 13:50] LABS: ABG MODE OF VENTILATION ASSIST/CONTROL; ABG RESPIRATORY RATE 24 b/min
[2020-12-04] MEDS: SODIUM CHLORIDE 0.9% 500 ML IV PRN (14:20)
[2020-12-04] MEDS: METOCLOPRAMIDE 10 MG/2 ML VIAL IVP SCH (17:45)
[2020-12-05] MEDS ORDERED: diltiaZEM INJ 5 MG/ML VIAL IVP SCH
[2020-12-05] MEDS: METOCLOPRAMIDE 10 MG/2 ML VIAL IVP SCH ×5 (00:19→23:33)
[2020-12-05] MEDS: SODIUM CHLORIDE FLUSH 0.9% 10 ML SYRINGE IVP PRN ×9 (00:20→23:33)
[2020-12-05] MEDS: fentaNYL 2,500 MCG/250 ML 2,500 MCG/250 ML BAG IV SCH ×7 (01:24→21:30)
[2020-12-05] MEDS: MIDAZOLAM DRIP 50 MG/100 ML BAG IV SCH ×6 (01:27→23:31)
[2020-12-05] MEDS ORDERED: diltiaZEM INJ 5 MG/ML VIAL IVP STA (02:48)
[2020-12-05] MEDS: ALBUTEROL NEB 2.5 MG/3 ML INH PRN (03:40)
[2020-12-05] MEDS: metroNIDAZOLE 500 MG/100 ML 500 MG/100 ML BAG IV SCH ×3 (04:02→19:34)
[2020-12-05] MEDS: ACETAMINOPHEN 1,000 MG/100 ML 100 ML IV PRN ×2 (04:24→14:07)
[2020-12-05 04:44] LABS: ABG HCO3 18.9 mmol/L (22.0-26.0); ABG PCO2 34 mmHg (34-45); ABG PH 7.34 (7.35-7.45); ABG PO2 78 mmHg (80-100)
[2020-12-05 04:45] LABS: ABG BASE EXCESS -5.6 mmol/L (-2.0-3.0); ABG MODE OF VENTILATION ASSIST/CONTROL; ABG OXYGEN SATURATION 94 % (94-98); ABG RESPIRATORY RATE 24 b/min; ABG TCO2 19.9 MMOL/L (21.0-29.0); ALLEN TEST POSITIVE
[2020-12-05] MEDS: CEFEPIME 2 GM in SODIUM CHLORIDE 0.9% MINIBAG 100 ML IV SCH ×3 (04:58→20:31)
[2020-12-05] MEDS ORDERED: FUROSEMIDE 40 MG/4 ML VIAL IVP STA (05:06)
[2020-12-05] MEDS: diltiaZEM INJ 5 MG/ML VIAL IVP SCH ×5 (05:16→20:35)
[2020-12-05 05:27] LABS: ALBUMIN 1.9 g/dL (3.2-5.5); ALBUMIN/GLOBULIN RATIO 0.5 (1.0-2.2); CALCIUM 8.4 mg/dL (8.5-10.3); CREATININE 0.8 mg/dL (0.4-1.0); MAGNESIUM 2.2 mg/dL (1.7-2.8); PHOSPHORUS 2.6 mg/dL (2.5-4.6); POTASSIUM 4.6 mmol/L (3.5-5.0); TOTAL PROTEIN 5.8 g/dL (6.7-8.2)
[2020-12-05 05:58] LABS: BASOPHILS % (AUTO) 0.2 %; HCT - HEMATOCRIT 31.6 % (37.0-47.0); LYMPHOCYTES % (AUTO) 2.7 %; MEAN CORPUSCULAR HEMOGLOBIN 30.9 pg (27.0-31.0); MEAN CORPUSCULAR HGB CONC 31.6 g/dL (32.0-36.0); MEAN CORPUSCULAR VOLUME 97.5 fL (81.0-99.0); MEAN PLATELET VOLUME 11.2 fL (7.9-10.8); MONOCYTES % (AUTO) 2.4 %; NEUTROPHILS % (AUTO) 89.6 %; PLT - PLATELET COUNT 186 10^3/uL (130-450); RED BLOOD COUNT 3.24 10^6/uL (4.20-5.40); RED CELL DISTRIBUTION WIDTH 13.7 % (12.0-15.0); WHITE BLOOD COUNT 19.3 x10^3/uL (4.8-10.8)
[2020-12-05 06:02] LABS: ABNORMAL LYMPHS % (MANUAL) 0 %; BAND NEUTROPHILS % (MANUAL) 0 %
[2020-12-05] MEDS: INSULIN REGULAR HUMAN 300 UNIT/3 ML VIAL SUBQ SCH ×3 (06:13→17:44)
[2020-12-05 06:14] LABS: DIFFERENTIAL COMMENT MANUAL DIFFERENTIAL; LYMPHOCYTES # (MANUAL) 0.4 10^3/uL (1.5-3.5); LYMPHOCYTES % (MANUAL) 2 %; NEUTROPHILS # (MANUAL) 17.9 10^3/uL (1.5-6.6); PLATELET ESTIMATE, MANUAL NORMAL (130-450,000) (NORMAL); PLATELET MORPHOLOGY NORMAL APPEARANCE (NORMAL); RBC MORPHOLOGY (MULTIPLE) NORMAL APPEARANCE (NORMAL); WBC MORPHOLOGY (MULTIPLE) NORMAL APPEARANCE (NORMAL)
[2020-12-05] MEDS: PANTOPRAZOLE 40 MG VIAL IVP SCH (06:14)
--- NOTE | 2020-12-05 07:11 | XRAY Report ---
PROCEDURE: Chest 1 View X-Ray INDICATIONS: hyopxia, dyspnea TECHNIQUE: One view of the chest was acquired. COMPARISON: Chest x-ray 12/03/2020. FINDINGS: Surgical changes and devices: There is an endotracheal tube 4 cm above jabari. A nasogastric tube is noted in the stomach. There is a right IJ central line with the tip projecting to the area of SVC. Lungs and pleura: Bilateral airspace infiltrates consistent with pulmonary edema or bilateral pneumo vane. Compared with the last exam, there is slight improvement. No pleural effusions or pneumothorax. Mediastinum: Mediastinal contours appear normal. Heart size is normal. Bones and chest wall: No suspicious bony lesions. Overlying soft tissues appear unremarkable. IMPRESSION: 1. Lines and tubes are as described. 2. Bilateral airspace infiltrates consistent with pulmonary edema or bilateral pneumonia. There is a slight improvement compared to the last chest x-ray. Reviewed by: Ben Huang MD on 12/05/2020 7:09 AM PST Approved by: Ben Huang MD on 12/05/2020 7:09 AM PST Station ID: [id number]
[2020-12-05] MEDS: FORMOTEROL FUMARATE NEB 20 MCG/2 ML INH SCH ×2 (08:15→20:24)
[2020-12-05] MEDS: IPRATROPIUM/ALBUTEROL 3 ML NEB INH SCH ×4 (08:15→20:24)
[2020-12-05] MEDS: BUDESONIDE 0.5 MG/2 ML NEB INH SCH ×2 (08:15→20:24)
[2020-12-05] MEDS: CHLORHEXIDINE GLUCONATE 15 ML UDC PO SCH ×2 (08:37→20:31)
[2020-12-05] MEDS: ENOXAPARIN 40 MG/0.4 ML SYRINGE SUBQ SCH (08:44)
[2020-12-05] MEDS: SODIUM CHLORIDE FLUSH 0.9% 10 ML SYRINGE IVP SCH ×2 (08:44→17:40)
[2020-12-05] MEDS: DEXAMETHASONE 4 MG/ML VIAL IVP SCH (08:48)
[2020-12-05] MEDS: BISACODYL 10 MG SUPP PR PRN (09:46)
[2020-12-05] MEDS: DEXMEDETOMIDINE 1,000 MCG in SODIUM CHLORIDE 0.9% 250 ML IV SCH ×2 (10:35→20:24)
[2020-12-05] MEDS: levoFLOXacin 750 MG/150 ML 750 MG/150 ML BAG IV SCH (10:44)
[2020-12-05] MEDS: SODIUM CHLORIDE 0.9% 500 ML IV PRN (15:03)
--- NOTE | 2020-12-05 17:39 | PROVIDER PROGRESS NOTE ---
Assessment/Plan - Problem List (1) Acute respiratory failure with hypoxia Assessment/Plan: Today is about the fourth day that she is to have proning, Anesthesia parameter at 0900 and will come to make her supine at 8 PM. Continue with vent support. For nutrition she is getting her NG tube feeds whenever she is supine. (2) Pneumonia due to COVID-19 virus Assessment/Plan: Proning is being done as above. Continue with vent support, sedation, Decadron, Lovenox. Her last 3 chest x-rays have each shown minimal improvement therefore we will continue with this plan. (3) Asthma with acute exacerbation Qualifiers: Asthma severity: severe Assessment/Plan: She is getting inhalers and steroids. (4) SVT (supraventricular tachycardia) Assessment/Plan: Yesterday her IV diltiazem drip was stopped and changed to diltiazem 2.5 mg IV every 6 hours. With this she went to SVT 3 times, short bursts. 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 With this there was no SVT today. (5) Prerenal azotemia Assessment/Plan: OLI resolved many days ago. Continue with gentle hydration because of this prerenal azotemia on labs. She intermittently needs Lasix however when she has rhonchi (6) Hyperglycemia Assessment/Plan: She is now getting sliding scale insulin coverage (7) Hx of essential hypertension Assessment/Plan: Her home BP med is on hold since she has a normal blood pressure (8) Constipation Assessment/Plan: Reglan was started 2 days ago to help with peristalsis with the NG feeds. Today a suppository was given. Continue with escalating the bowel protocol (9) Hypokalemia Assessment/Plan: Resolved (10) OLI (acute kidney injury) Assessment/Plan: Resolved - Current Meds Current Meds: Current Medications Generic Name Dose Route Start Last Admin Trade Name Freq PRN Reason Stop Dose Admin Albuterol 2.5 mg 11/30/20 15:42 12/05/20 03:40 Albuterol Neb 2.5 Mg/3 Ml INH 2.5 mg Q4HR PRN Administration Dyspnea Albuterol/Ipratropium 3 ml 11/30/20 07:00 12/05/20 16:16 Ipratropium/Albuterol 3 Ml Neb INH 3 ml RTQID KEVEN Administration Bisacodyl 10 mg 12/05/20 08:00 12/05/20 09:46 Bisacodyl 10 Mg Supp FL 10 mg DAILY PRN Administration Constipation Budesonide 0.5 mg 11/30/20 07:00 12/05/20 08:15 Budesonide 0.5 Mg/2 Ml Neb INH 0.5 mg RTBID KEVEN Administration Carboxymethylcellulose 1 drops 12/02/20 08:38 12/04/20 08:57 Carboxymethylcellulose Ophth Drops EACHEYE 1 ea PRN PRN Administration Dry Eye Chlorhexidine Gluconate 15 ml 11/30/20 09:00 12/05/20 08:37 Chlorhexidine Gluconate 15 Ml Udc PO 15 ml BID KEVEN Administration Dexamethasone 6 mg 11/30/20 09:00 12/05/20 08:48 Dexamethasone 4 Mg/Ml Vial IVP 6 mg DAILY KEVEN Administration Diltiazem HCl 2.5 mg 12/05/20 05:00 12/05/20 14:07 Diltiazem Inj 5 Mg/Ml Vial IVP 2.5 mg Q4H KEVEN Administration Enoxaparin Sodium 40 mg 12/01/20 11:00 12/05/20 08:44 Enoxaparin 40 Mg/0.4 Ml Syringe SUBQ 40 mg DAILY KEVEN Administration Formoterol Fumarate 20 mcg 11/30/20 07:00 12/05/20 08:15 Formoterol Fumarate Neb 20 Mcg/2 Ml INH 20 mcg RTBID KEVEN Administration Acetaminophen 100 mls @ 400 mls/hr 11/30/20 10:18 12/05/20 14:22 Ofirmev IV Infused Q6HR PRN Infusion Pain or Fever > 38C (100.4F) Fentanyl 2,500 mcg in 250 mls @ 11.6 mls/hr 12/01/20 10:00 12/05/20 15:00 Fentanyl IV 7 mcg/kg/hr .[id number] KEVEN 81.2 mls/hr Administration Protocol 1 MCG/KG/HR Sodium Chloride 500 mls @ 20 mls/hr 12/01/20 11:50 12/05/20 15:03 Normal Saline 0.9% IV 20 mls/hr Q24H PRN Administration TKO RATE Levofloxacin 750 mg in 150 mls @ 100 mls/hr 12/02/20 11:00 12/05/20 12:14 Levaquin 750 Mg/150 Ml IV Infused Q24H KEVEN Infusion Midazolam HCl 50 mg in 100 mls @ 9.4 mls/hr 12/02/20 13:00 12/05/20 15:02 Versed Drip IV 0.09 mg/kg/hr .[id number] KEVEN 21.15 mls/hr Titration Protocol 0.04 MG/KG/HR Dexmedetomidine HCl 1,000 mcg/ 260 mls @ 15.275 mls/hr 12/02/20 19:00 12/05/20 15:19 Sodium Chloride IV 0.8 mcg/kg/hr .Q17H2M KEVEN 24.44 mls/hr Titration Protocol 0.5 MCG/KG/HR Cefepime HCl 2 gm/ Sodium 100 mls @ 200 mls/hr 12/03/20 13:03 12/05/20 14:37 Chloride IV Infused Q8H KEVEN Infusion Metronidazole 500 mg in 100 mls @ 100 mls/hr 12/04/20 12:00 12/05/20 13:16 Flagyl 500 Mg/100 Ml IV Infused Q8H KEVEN Infusion Insulin Human Regular 1 - 5 unit 12/04/20 00:00 12/05/20 12:05 Insulin Regular Human 300 Unit/3 Ml Vial SUBQ 1 unit Q6HR KEVEN Administration Protocol Lorazepam 0.5 mg 11/29/20 22:39 12/03/20 13:42 Lorazepam 2 Mg/Ml Vial IVP 0.5 mg Q2H PRN Administration Anxiety Metoclopramide HCl 5 mg 12/04/20 18:00 12/05/20 12:05 Metoclopramide 10 Mg/2 Ml Vial IVP 5 mg Q6HR KEVEN Administration Multi-Ingred Cream/Lotion/Oil/Oint 1 applic 12/02/20 08:39 12/02/20 09:30 Mineral Oil/Petrolat Ophth Oint EACHEYE 1 applic QPM PRN Administration Dry Eye Pantoprazole Sodium 40 mg 11/30/20 07:00 12/05/20 06:14 Pantoprazole 40 Mg Vial IVP 40 mg QDAC KEVEN Administration Sodium Chloride 10 ml 11/30/20 01:00 12/05/20 08:44 Sodium Chloride Flush 0.9% 10 Ml Syringe IVP 10 ml 0100,0900,1700 KEVEN Administration Sodium Chloride 10 ml 11/29/20 19:01 12/05/20 06:44 Sodium Chloride Flush 0.9% 10 Ml Syringe IVP 10 ml PRN PRN Administration NEEDED PER PROVIDER ORDERS - Lab Result Fish Bone Diagrams: 12/05/20 04:20 12/05/20 04:20 - Additional Planning My Orders: My Active Orders 12/04/20 18:00 Metoclopramide Inj [Reglan Inj] 5 mg IVP Q6HR 12/05/20 06:14 Sodium Chloride Flush 0.9% [Normal Saline Flush 0.9%] 20 ml IVP PRN PRN 12/05/20 08:00 Bisacodyl Supp [Dulcolax Supp] 10 mg FL DAILY PRN 12/05/20 09:00 Initiate NonViolent Restraint [RC] .PerProtocol 12/08/20 05:00 COMPREHENSIVE METABOLIC PANEL [CHEM] Timed MAGNESIUM [CHEM] Timed PHOSPHORUS [CHEM] Timed PREALBUMIN [CHEM] Timed Subjective - Subjective Patient Reports: Other (She is sedated and currently in prone position.Exam was taken from RN and RT reports.) Objective Vital Signs: Vital Signs - 24 hr 12/04/20 12/04/20 12/04/20 18:00 19:00 20:00 Temperature 38.7 C H 38.8 C H 38.9 C H Heart Rate Heart Rate [ 82 85 90 Monitoring electrodes] Respiratory 13 13 15 Rate Blood Pressure Blood Pressure 120/63 122/63 116/60 [Left Brachial artery] O2 Saturation 97 97 96 12/04/20 12/04/20 12/04/20 21:00 22:00 23:00 Temperature 38.9 C H 38.9 C H 38.9 C H Heart Rate 89 Heart Rate [ 88 95 92 Monitoring electrodes] Respiratory 14 15 14 Rate Blood Pressure Blood Pressure 113/65 106/57 L 116/60 [Left Brachial artery] O2 Saturation 96 99 98 12/04/20 12/04/20 12/05/20 23:24 23:35 00:00 Temperature 38.9 C H Heart Rate 87 Heart Rate [ 85 Monitoring electrodes] Respiratory 14 Rate Blood Pressure 98/59 L Blood Pressure 130/63 [Left Brachial artery] O2 Saturation 98 12/05/20 12/05/20 12/05/20 01:00 01:25 02:00 Temperature 39 C H 39.1 C H Heart Rate 79 Heart Rate [ 82 82 Monitoring electrodes] Respiratory 13 14 Rate Blood Pressure Blood Pressure 116/65 122/64 [Left Brachial artery] O2 Saturation 96 96 12/05/20 12/05/20 12/05/20 02:57 03:01 03:40 Temperature 39.2 C H Heart Rate 79 Heart Rate [ 87 Monitoring electrodes] Respiratory 16 29 H Rate Blood Pressure 126/66 Blood Pressure 126/66 [Left Brachial artery] O2 Saturation 94 12/05/20 12/05/20 12/05/20 04:00 05:00 05:16 Temperature 39.3 C H 39.3 C H 39.3 C H Heart Rate Heart Rate [ 84 85 81 Monitoring electrodes] Respiratory 15 34 H 15 Rate Blood Pressure 113/66 Blood Pressure 119/60 113/66 117/66 [Left Brachial artery] O2 Saturation 95 81 L 90 L 12/05/20 12/05/20 12/05/20 05:45 06:00 07:00 Temperature 39.1 C H 39 C H Heart Rate 86 Heart Rate [ 82 76 Monitoring electrodes] Respiratory 14 18 Rate Blood Pressure Blood Pressure 120/61 116/61 [Left Brachial artery] O2 Saturation 91 L 92 12/05/20 12/05/20 12/05/20 08:00 08:15 09:00 Temperature 38.9 C H 38.8 C H Heart Rate 74 Heart Rate [ 81 80 Monitoring electrodes] Respiratory 24 27 H 27 H Rate Blood Pressure Blood Pressure 120/60 125/63 [Left Brachial artery] O2 Saturation 92 93 12/05/20 12/05/20 12/05/20 10:00 11:00 11:42 Temperature 38.2 C H 38.2 C H Heart Rate 77 Heart Rate [ 80 77 Monitoring electrodes] Respiratory 27 H 26 H 25 H Rate Blood Pressure Blood Pressure 129/68 137/75 H [Left Brachial artery] O2 Saturation 99 98 12/05/20 12/05/20 12/05/20 11:59 13:00 14:00 Temperature 38.2 C H 38.4 C H 38.5 C H Heart Rate Heart Rate [ 77 75 75 Monitoring electrodes] Respiratory 26 H 29 H 30 H Rate Blood Pressure Blood Pressure 139/75 H 135/68 H 135/71 H [Left Brachial artery] O2 Saturation 95 96 96 12/05/20 12/05/20 12/05/20 14:07 15:00 16:00 Temperature 38.5 C H 38.6 C H Heart Rate Heart Rate [ 74 73 Monitoring electrodes] Respiratory 29 H 30 H Rate Blood Pressure 135/71 H Blood Pressure 136/65 H 137/68 H [Left Brachial artery] O2 Saturation 92 94 12/05/20 12/05/20 16:16 17:00 Temperature 38.7 C H Heart Rate 73 Heart Rate [ 73 Monitoring electrodes] Respiratory 31 H 29 H Rate Blood Pressure Blood Pressure 126/67 [Left Brachial artery] O2 Saturation 94 Oxygen O2 Source Mechanical ventilator Oxygen Flow Rate 15 I&O (Last 24 Hrs): Intake and Output Totals x24h 12/03/20 12/04/20 12/05/20 23:59 23:59 23:59 Intake Total 6235.669 4969.175 3899.605 Output Total 2315 4035 3085 Balance 3920.669 934.175 814.605 General: Other (Sedated, on vent, currently prone.) HEENT: Other (ET and ng tubes in place) Neuro: Other (Sedated) Cardiovascular: Regular rate Respiratory: Other (On vent via ET tube) Abdomen: Soft Extremities: No edema - Results Results: Laboratory Results WBC 19.3 x10^3/uL (4.8-10.8) H 12/05/20 04:20 RBC 3.24 10^6/uL (4.20-5.40) L 12/05/20 04:20 Hgb 10.0 g/dL (12.0-16.0) L 12/05/20 04:20 Hct 31.6 % (37.0-47.0) L 12/05/20 04:20 MCV 97.5 fL (81.0-99.0) 12/05/20 04:20 MCH 30.9 pg (27.0-31.0) 12/05/20 04:20 MCHC 31.6 g/dL (32.0-36.0) L 12/05/20 04:20 RDW 13.7 % (12.0-15.0) 12/05/20 04:20 Plt Count 186 10^3/uL (130-450) 12/05/20 04:20 MPV 11.2 fL (7.9-10.8) H 12/05/20 04:20 Neut # (Auto) Not Reportable 12/05/20 04:20 Lymph # (Auto) Not Reportable 12/05/20 04:20 [place] # (Auto) Not Reportable 12/05/20 04:20 Eos # (Auto) Not Reportable 12/05/20 04:20 Baso # (Auto) Not Reportable 12/05/20 04:20 Absolute Nucleated RBC Not Reportable 12/05/20 04:20 Total Counted 100 12/05/20 04:20 Band Neuts % (Manual) 0 % (0-10) 12/05/20 04:20 Abnorm Lymph % (Manual) 0 % 12/05/20 04:20 Metamyelocytes % 3 % (-0) H 12/02/20 04:30 Myelocytes % 3 % (-0) H 12/02/20 04:30 Nucleated RBC % Not Reportable 12/05/20 04:20 Neutrophils # (Manual) 17.9 10^3/uL (1.5-6.6) H 12/05/20 04:20 Lymphocytes # (Manual) 0.4 10^3/uL (1.5-3.5) L 12/05/20 04:20 Monocytes # (Manual) 1.0 10^3/uL (0.0-1.0) 12/05/20 04:20 Eosinophils # (Manual) 0.0 10^3/uL (0-0.7) 12/05/20 04:20 Basophils # (Manual) 0.0 10^3/uL (0-0.1) 12/05/20 04:20 Differential Comment MANUAL DIFFERENTIAL 12/05/20 04:20 Manual Slide Review Indicated 12/04/20 04:41 WBC Morphology NORMAL APPEARANCE (NORMAL) 12/05/20 04:20 Platelet Estimate NORMAL (130-450,000) (NORMAL) 12/05/20 04:20 Platelet Morphology NORMAL APPEARANCE (NORMAL) 12/05/20 04:20 RBC Morph Micro Appear NORMAL APPEARANCE (NORMAL) 12/05/20 04:20 PT 15.4 secs (9.9-12.6) H 11/29/20 18:41 INR 1.4 (0.8-1.2) H 11/29/20 18:41 D-Dimer > 1050.0 ng/mL (200.0-255.0) H 12/03/20 04:10 Bld Gas Analysis Time 0442 12/05/20 04:32 Sample Site LEFT RADIAL 12/05/20 04:32 ABG pH 7.34 (7.35-7.45) L 12/05/20 04:32 ABG pCO2 34 mmHg (34-45) 12/05/20 04:32 ABG pO2 78 mmHg (80-100) L 12/05/20 04:32 ABG HCO3 18.9 mmol/L (22.0-26.0) L 12/05/20 04:32 ABG Total CO2 19.9 MMOL/L (21.0-29.0) L 12/05/20 04:32 ABG O2 Saturation 94 % (94-98) 12/05/20 04:32 ABG Base Excess -5.6 mmol/L (-2.0-3.0) L 12/05/20 04:32 Luis Antonio Test POSITIVE 12/05/20 04:32 VBG pH 7.406 (7.31-7.41) 11/29/20 18:41 VBG pCO2 34.4 mmHg (41-51) L 11/29/20 18:41 VBG pO2 26.2 mmHg (25-47) 11/29/20 18:41 VBG HCO3 21.1 mmol/L (23-28) L 11/29/20 18:41 VBG Total CO2 22.2 mmol/L (24-29) L 11/29/20 18:41 VBG O2 Saturation 48.7 % (60-80) L 11/29/20 18:41 VBG Base Excess -2.8 mmol/L (-2 - +2) L 11/29/20 18:41 Respiration Rate 24 b/min 12/05/20 04:32 O2 Delivery Device VENTILATOR 12/05/20 04:32 Vent Mode ASSIST/CONTROL 12/05/20 04:32 FiO2 100.00 12/05/20 04:32 Tidal Volume 530 mL 12/05/20 04:32 PEEP 15 cmH2O 12/05/20 04:32 Pressure Support Vent 10 cmH2O 11/30/20 05:05 Sodium 140 mmol/L (135-145) 12/05/20 04:20 Potassium 4.6 mmol/L (3.5-5.0) 12/05/20 04:20 Chloride 110 mmol/L (101-111) 12/05/20 04:20 Carbon Dioxide 22 mmol/L (21-32) 12/05/20 04:20 Anion Gap 8.0 (6-13) 12/05/20 04:20 BUN 26 mg/dL (6-20) H 12/05/20 04:20 Creatinine 0.8 mg/dL (0.4-1.0) 12/05/20 04:20 Estimated GFR (MDRD) 72 (>89) L 12/05/20 04:20 Glucose 148 mg/dL (70-100) H 12/05/20 04:20 POC Whole Bld Glucose 174 mg/dL (70 - 100) H 12/05/20 11:50 Estimat Average Glucose 140 mg/dL (70-100) H 12/04/20 04:41 Hemoglobin A1c % 6.5 % (4.27-6.07) H 12/04/20 04:41 Lactic Acid 1.5 mmol/L (0.5-2.2) 11/30/20 05:12 Calcium 8.4 mg/dL (8.5-10.3) L 12/05/20 04:20 Phosphorus 2.6 mg/dL (2.5-4.6) 12/05/20 04:20 Magnesium 2.2 mg/dL (1.7-2.8) 12/05/20 04:20 Total Bilirubin 1.0 mg/dL (0.2-1.0) 12/05/20 04:20 Direct Bilirubin 0.3 mg/dL (0.1-0.5) 12/01/20 05:30 AST 19 IU/L (10-42) 12/05/20 04:20 ALT 24 IU/L (10-60) 12/05/20 04:20 Alkaline Phosphatase 97 IU/L (42-121) 12/05/20 04:20 Troponin I High Sens 14.9 ng/L (2.3-14.8) H* 11/30/20 05:12 Total Protein 5.8 g/dL (6.7-8.2) L 12/05/20 04:20 Albumin 1.9 g/dL (3.2-5.5) L 12/05/20 04:20 Globulin 3.9 g/dL (2.1-4.2) 12/05/20 04:20 Albumin/Globulin Ratio 0.5 (1.0-2.2) L 12/05/20 04:20 Prealbumin 12 mg/dL (18-45) L 12/05/20 04:20 Triglycerides 344 mg/dL (-149) H 12/01/20 05:30 Nasal Screen MRSA (PCR) NEGATIVE (NEGATIVE) 11/29/20 21:15 - Procedures Procedures: Procedures CARPAL TUNNEL RELEASE (04/16/13) DESTRUCT-KNEE LESION NEC (07/09/14) EXCIS KNEE SEMILUN CARTL (07/09/14) EXPLOR TEND SHEATH-HAND (04/16/13)
[2020-12-06] MEDS: INSULIN REGULAR HUMAN 300 UNIT/3 ML VIAL SUBQ SCH ×5 (00:22→23:15)
[2020-12-06] MEDS: fentaNYL 2,500 MCG/250 ML 2,500 MCG/250 ML BAG IV SCH ×8 (00:29→23:30)
[2020-12-06] MEDS ORDERED: FUROSEMIDE 40 MG/4 ML VIAL IVP STA (00:45)
[2020-12-06] MEDS: ALBUTEROL NEB 2.5 MG/3 ML INH PRN (00:45)
[2020-12-06] MEDS: SODIUM CHLORIDE FLUSH 0.9% 10 ML SYRINGE IVP SCH ×4 (00:49→17:12)
[2020-12-06] MEDS: diltiaZEM INJ 5 MG/ML VIAL IVP SCH ×6 (00:49→20:26)
[2020-12-06] MEDS: SODIUM CHLORIDE FLUSH 0.9% 10 ML SYRINGE IVP PRN ×5 (00:59→06:13)
[2020-12-06] MEDS ORDERED: ROCURONIUM 50 MG/5 ML VIAL IVP ONE (01:50)
[2020-12-06] MEDS: metroNIDAZOLE 500 MG/100 ML 500 MG/100 ML BAG IV SCH ×3 (03:34→20:09)
[2020-12-06] MEDS: ACETAMINOPHEN 1,000 MG/100 ML 100 ML IV PRN ×2 (03:35→09:56)
[2020-12-06] MEDS: MIDAZOLAM DRIP 50 MG/100 ML BAG IV SCH ×5 (03:42→21:41)
[2020-12-06] MEDS: CEFEPIME 2 GM in SODIUM CHLORIDE 0.9% MINIBAG 100 ML IV SCH ×3 (04:54→21:14)
[2020-12-06 05:14] LABS: BASOPHILS % (AUTO) 0.2 %; HCT - HEMATOCRIT 32.8 % (37.0-47.0); HGB - HEMOGLOBIN 10.3 g/dL (12.0-16.0); LYMPHOCYTES % (AUTO) 2.6 %; MEAN CORPUSCULAR HEMOGLOBIN 30.3 pg (27.0-31.0); MEAN CORPUSCULAR HGB CONC 31.4 g/dL (32.0-36.0); MEAN CORPUSCULAR VOLUME 96.5 fL (81.0-99.0); MEAN PLATELET VOLUME 11.1 fL (7.9-10.8); MONOCYTES % (AUTO) 2.5 %; NEUTROPHILS % (AUTO) 89.5 %; PLT - PLATELET COUNT 167 10^3/uL (130-450)
[2020-12-06 05:17] LABS: ABNORMAL LYMPHS % (MANUAL) 0 %; BAND NEUTROPHILS % (MANUAL) 0 %
[2020-12-06 05:31] LABS: DIFFERENTIAL COMMENT MANUAL DIFFERENTIAL; LYMPHOCYTES # (MANUAL) 0.5 10^3/uL (1.5-3.5); LYMPHOCYTES % (MANUAL) 2 %; MONOCYTES # (MANUAL) 1.2 10^3/uL (0.0-1.0); MYELOCYTES % (MANUAL) 1 %; NEUTROPHILS # (MANUAL) 21.2 10^3/uL (1.5-6.6); PLATELET ESTIMATE, MANUAL NORMAL (130-450,000) (NORMAL); PLATELET MORPHOLOGY NORMAL APPEARANCE (NORMAL); RBC MORPHOLOGY (MULTIPLE) NORMAL APPEARANCE (NORMAL); WBC MORPHOLOGY (MULTIPLE) NORMAL APPEARANCE (NORMAL)
[2020-12-06] MEDS: BUDESONIDE 0.5 MG/2 ML NEB INH SCH ×2 (05:35→19:30)
[2020-12-06] MEDS: IPRATROPIUM/ALBUTEROL 3 ML NEB INH SCH ×4 (05:35→19:30)
[2020-12-06] MEDS: FORMOTEROL FUMARATE NEB 20 MCG/2 ML INH SCH ×2 (05:35→19:30)
[2020-12-06] MEDS: METOCLOPRAMIDE 10 MG/2 ML VIAL IVP SCH ×4 (06:04→23:15)
[2020-12-06] MEDS: PANTOPRAZOLE 40 MG VIAL IVP SCH (06:13)
[2020-12-06 06:14] LABS: ABG BASE EXCESS -3.2 mmol/L (-2.0-3.0); ABG HCO3 22.1 mmol/L (22.0-26.0); ABG PCO2 41 mmHg (34-45); ABG PH 7.35 (7.35-7.45); ABG PO2 58 mmHg (80-100); ABG TCO2 23.4 MMOL/L (21.0-29.0); ALLEN TEST POSITIVE
[2020-12-06 06:15] LABS: ABG MODE OF VENTILATION ASSIST/CONTROL; ABG RESPIRATORY RATE 24 b/min
[2020-12-06 06:16] LABS: ABG OXYGEN SATURATION 87 % (94-98)
[2020-12-06] MEDS: DEXMEDETOMIDINE 1,000 MCG in SODIUM CHLORIDE 0.9% 250 ML IV SCH ×2 (06:48→16:15)
[2020-12-06 07:34] LABS: ALBUMIN 1.8 g/dL (3.2-5.5); ALBUMIN/GLOBULIN RATIO 0.5 (1.0-2.2); BILIRUBIN,TOTAL 0.6 mg/dL (0.2-1.0); CALCIUM 8.7 mg/dL (8.5-10.3); CREATININE 0.8 mg/dL (0.4-1.0); POTASSIUM 4.4 mmol/L (3.5-5.0); TOTAL PROTEIN 5.6 g/dL (6.7-8.2)
--- NOTE | 2020-12-06 07:55 | XRAY Report ---
PROCEDURE: Chest 1 View X-Ray INDICATIONS: dyspnea, hypoxia TECHNIQUE: One view of the chest was acquired. COMPARISON: Multiple prior CXR including 12/05/2020, 12/03/2020, 12/02/2020. FINDINGS: Surgical changes and devices: Endotracheal tube in the mid trachea. Enteric tube coursing into the st omach. Right IJ central venous line with the tip projecting over the middle third of the SVC. Tubes a nd lines appear unchanged in location.. Lungs and pleura: Bilateral patchy airspace opacity which is not significantly changed. No obvious pl eural effusion. No pneumothorax. Mediastinum: Mediastinal contours appear unchanged. Heart size is partially obscured. Bones and chest wall: No suspicious bony lesions. Overlying soft tissues appear unremarkable. IMPRESSION: Tubes and lines project in the expected locations and appear unchanged. Bilateral patchy airspace opacity is not significant change. Suspect multifocal or atypical pneumonia over pulmonary edema. Reviewed by: Tesfaye Garcia MD on 12/06/2020 7:54 AM PST Approved by: Tesfaye Garcia MD on 12/06/2020 7:54 AM PST Station ID: [id number]
[2020-12-06] MEDS: CHLORHEXIDINE GLUCONATE 15 ML UDC PO SCH ×2 (08:08→20:25)
[2020-12-06] MEDS: ENOXAPARIN 40 MG/0.4 ML SYRINGE SUBQ SCH (08:09)
[2020-12-06] MEDS: DEXAMETHASONE 4 MG/ML VIAL IVP SCH (08:10)
[2020-12-06] MEDS ORDERED: SALINE ENEMA 133 ML BOTTLE RC ONE (10:38)
[2020-12-06] MEDS: levoFLOXacin 750 MG/150 ML 750 MG/150 ML BAG IV SCH (10:51)
[2020-12-06] MEDS: MINERAL OIL/PETROLAT OPHTH OINT EACHEYE PRN (12:05)
[2020-12-06] MEDS ORDERED: VECURONIUM 100 MG in SODIUM CHLORIDE 0.9% 100ML 100 ML IVP SCH (12:30)
[2020-12-06] MEDS: VECURONIUM 100 MG in SODIUM CHLORIDE 0.9% 100ML 100 ML IV SCH (12:40)
[2020-12-06] MEDS ORDERED: KETOROLAC 30 MG/ML VIAL IVP PRN (14:27)
[2020-12-06 15:13] LABS: ABG HCO3 23.6 mmol/L (22.0-26.0); ABG PO2 63 mmHg (80-100)
[2020-12-06 15:14] LABS: ABG TCO2 25.7 MMOL/L (21.0-29.0)
[2020-12-06 15:15] LABS: ALLEN TEST POSITIVE
[2020-12-06 15:16] LABS: ABG MODE OF VENTILATION ASSIST/CONTROL; ABG RESPIRATORY RATE 24 b/min
[2020-12-06 15:19] LABS: ABG OXYGEN SATURATION 85 % (94-98); ABG PCO2 70 mmHg (34-45); ABG PH 7.15 (7.35-7.45)
--- NOTE | 2020-12-06 15:21 | PROVIDER PROGRESS NOTE ---
Assessment/Plan - Problem List (1) Acute respiratory failure with hypoxia Assessment/Plan: Her chest x-ray shows ARDS with bilateral Covid pneumonia, cannot rule out bacterial pneumonia. He is on empiric IV antibiotics and getting event support (see below). I updated the family today, at bedside. Her son, Alvina, told me today that 4 days before she presented with an FiO2 of 40% and needed rapid intubation, she was desatting at 70%; she had fallen out of bed, an ambulance had been summoned, she was already desatting in the 70s on that day. But she herself refused to be brought to the ER. Her did not force her to go. Her son and [id number] told me today that this is a patient who almost always seeks medical attention for any minor problem, therefore it was out of character for her to not want to come to the ER, and so the son and [id number] suspected that she must have been confused from hypoxia. They did not know about this fall and the ambulance visit and the 70% saturations, until the day that she was so confused and came in with saturation of 40%. They are now worried that she may have had 4 days with significant hypoxia and are worried about permanent brain damage. (2) Pneumonia due to COVID-19 virus Assessment/Plan: Her CXRs have been read as showing minimal improvement for the last 3 days. Her WBC as risen the past 4 days from 14>> 19>> 19>> 23 today. She is still spiking high fevers daily as high as 39.5 centigrade. Her ET tube and mask have become pliable and soft because of the fever, and have moved slightly; this was noticed by Anesthesia today and the RT's. She is getting IV Tylenol as needed fevers and will also add IV NSAID as needed fevers, alternating doses. She is getting proning daily, today is Day #4. We are trying to go about 12 hours/day but it depends on Anesthesia's schedule, this was the weekend yesterday and today w/out any scheduled elective OR cases, there is a different Anethesia provider on-call daily. Overnight she desat'd and was bucking the vent, a bolus of paralytic was tried which caused worse desaturations. The bolus paralytic wore off and vent settings were set to optimize sats. Today this a.m., her vent settings were max'd (FIO2 100%, PEEP 20, TV 700, Assist control at 26 but she was overbreathing at rate 30, creating a peak pressure of 40). We requested help from Anesthesia regarding starting an iv drip of paralytic drug (as per NIH guidelines for ARDS in COVID pts). Pharmacy was requested to write for a titratable Vecuronium drip. It needs to be set at her IDEAL weight, not her actual weight. Anesthesia provider on-call Stephanie, instructed myself, Skyler Reian RN and SCAR Rendon, and 2 RTs Arleen White,RT and Scar Smith, RT, how to initiate the drip, testing for [id number], keeping an hourly log of testing TOF results once a proper Vecuronium rate has been found, to achieve a target TOF of 1-2 twitches, titrating up iv Vecuronium if needed every 30 min, and retesting TOF 30 min after a Vecuronium rate change. This was done in the patient's room. I was giving orders for Vecuronium rate changes and when to test for TOF and adjusting ventil setting, as she became more paralyzed. She was able to come down on PEEP from max of 24, to 18, then finally set at 20. Her resp rate of 30 decreased to 24 riding the vent. With this her sats improved to 95%. FIO2 could be decreased from 100% to 90% to 80%. An ABG is planned when the final, best vent settings are achieved today. The current 3 iv sedative drips should continue: iv Versed, iv Precedex and iv Fentynyl. The Precedex potentiates the Vecuronium effect. This combination of meds does not cause hypertriglyceridemia, like iv Propofol drip does (which she is not on). The plan is to keep her on all these sedatives, the paralytic at best iv setting and her best vent settings, for 72 hours and only change her proning and supining. She will get her NG feeds when she is supine The son, Alvina and his were allowed to come in when she became critical 2 nights ago, and they arrive today to see her. The pt's , Deion, is Covid positive and starting to have a cough therefore he was advised by me not to come in again. I updated the son Alvina and his , outside her room, for approximately 30 minutes on the last 3 days of management. I advised that they not need to come in for the next 72 hours because she will just be sedated, paralyzed and getting best management for her condition. This discussion was repeated to the SPECIMEN COLLECTOR and the Street Cleaner. She is getting IV Decadron daily and Lovenox daily. CRITICAL CARE TIME SPENT: 70 min. (3) Asthma with acute exacerbation Qualifiers: Asthma severity: severe Assessment/Plan: Continue IV steroids, nebs unscheduled, vent support. (4) SVT (supraventricular tachycardia) Assessment/Plan: Dilts drip was stopped 2 days ago, now the diltiazem 2.5 mg IV every 4 hours scheduled is suppressing any SVT. Her son, alvina, told me that she has had longstanding problems with PSVT. (5) Prerenal azotemia Assessment/Plan: She has slight prerenal findings on daily BMP. She does need occasional IV Lasix (6) Hyperglycemia Assessment/Plan: Glucoses went up when she was started on IV steroids. Sliding scale insulin has been ordered for coverage, especially with nutrition and calories administered per ng feeds. (7) Hx of essential hypertension Assessment/Plan: She has been off her home BP med, because the current combination of management has kept her blood pressure in the normal range, she averages 125 systolic. I updated the family about this today. (8) Constipation Assessment/Plan: We are escalating her bowel protocol to get a Fleet enema today (9) Myringotomy tube status Assessment/Plan: She had elective myringotomy tubes scheduled, took this Covid test which was positive and 3 days later began to have symptoms. She never had the tubes inserted by ENT. Today the family told me that she has these tubes in for poor equilibrium. Because of the history of ENT problems, her fevers may also be from sinusitis, and she has been started on IV antibiotic Flagyl for anaerobic coverage, several days ago. (10) Hypokalemia Assessment/Plan: Resolved with replacement (11) OLI (acute kidney injury) Assessment/Plan: Resolved with iv fluids. - Current Meds Current Meds: Current Medications Generic Name Dose Route Start Last Admin Trade Name Freq PRN Reason Stop Dose Admin Albuterol 2.5 mg 11/30/20 15:42 12/06/20 00:45 Albuterol Neb 2.5 Mg/3 Ml INH 2.5 mg Q4HR PRN Administration Dyspnea Albuterol/Ipratropium 3 ml 11/30/20 07:00 12/06/20 11:52 Ipratropium/Albuterol 3 Ml Neb INH 3 ml RTQID KEVEN Administration Bisacodyl 10 mg 12/05/20 08:00 12/05/20 09:46 Bisacodyl 10 Mg Supp ND 10 mg DAILY PRN Administration Constipation Budesonide 0.5 mg 11/30/20 07:00 12/06/20 05:35 Budesonide 0.5 Mg/2 Ml Neb INH 0.5 mg RTBID KVEEN Administration Carboxymethylcellulose 1 drops 12/02/20 08:38 12/04/20 08:57 Carboxymethylcellulose Ophth Drops EACHEYE 1 ea PRN PRN Administration Dry Eye Chlorhexidine Gluconate 15 ml 11/30/20 09:00 12/06/20 08:08 Chlorhexidine Gluconate 15 Ml Udc PO 15 ml BID KEVEN Administration Dexamethasone 6 mg 11/30/20 09:00 12/06/20 08:10 Dexamethasone 4 Mg/Ml Vial IVP 6 mg DAILY KEVEN Administration Diltiazem HCl 2.5 mg 12/05/20 05:00 12/06/20 13:04 Diltiazem Inj 5 Mg/Ml Vial IVP 2.5 mg Q4H KEVEN Administration Enoxaparin Sodium 40 mg 12/01/20 11:00 12/06/20 08:09 Enoxaparin 40 Mg/0.4 Ml Syringe SUBQ 40 mg DAILY KEVEN Administration Formoterol Fumarate 20 mcg 11/30/20 07:00 12/06/20 05:35 Formoterol Fumarate Neb 20 Mcg/2 Ml INH 20 mcg RTBID KEVEN Administration Acetaminophen 100 mls @ 400 mls/hr 11/30/20 10:18 12/06/20 10:11 Ofirmev IV Infused Q6HR PRN Infusion Pain or Fever > 38C (100.4F) Fentanyl 2,500 mcg in 250 mls @ 11.6 mls/hr 12/01/20 10:00 12/06/20 12:42 Fentanyl IV 9 mcg/kg/hr .[id number] KEVEN 104.4 mls/hr Administration Protocol 1 MCG/KG/HR Sodium Chloride 500 mls @ 20 mls/hr 12/01/20 11:50 12/06/20 00:00 Normal Saline 0.9% IV Infused Q24H PRN Infusion TKO RATE Levofloxacin 750 mg in 150 mls @ 100 mls/hr 12/02/20 11:00 12/06/20 12:21 Levaquin 750 Mg/150 Ml IV Infused Q24H KEVEN Infusion Midazolam HCl 50 mg in 100 mls @ 9.4 mls/hr 12/02/20 13:00 12/06/20 12:53 Versed Drip IV 0.1 mg/kg/hr .[id number] KEVEN 23.5 mls/hr Administration Protocol 0.04 MG/KG/HR Dexmedetomidine HCl 1,000 mcg/ 260 mls @ 15.275 mls/hr 12/02/20 19:00 12/06/20 14:00 Sodium Chloride IV 0.9 mcg/kg/hr .[id number] KEVEN 27.495 mls/hr Titration Protocol 0.5 MCG/KG/HR Cefepime HCl 2 gm/ Sodium 100 mls @ 200 mls/hr 12/03/20 13:03 12/06/20 13:35 Chloride IV Infused Q8H KEVEN Infusion Metronidazole 500 mg in 100 mls @ 100 mls/hr 12/04/20 12:00 12/06/20 14:40 Flagyl 500 Mg/100 Ml IV Infused Q8H KEVEN Infusion Vecuronium [place] 100 mg/ 100 mls @ 3.972 mls/hr 12/06/20 13:19 12/06/20 14:32 Sodium Chloride IV 1.8 mcg/kg/min .[id number] KEVEN 7.15 mls/hr Titration Protocol 1 MCG/KG/MIN Insulin Human Regular 1 - 5 unit 12/04/20 00:00 12/06/20 12:04 Insulin Regular Human 300 Unit/3 Ml Vial SUBQ 1 unit Q6HR KEVEN Administration Protocol Lorazepam 0.5 mg 11/29/20 22:39 12/03/20 13:42 Lorazepam 2 Mg/Ml Vial IVP 0.5 mg Q2H PRN Administration Anxiety Metoclopramide HCl 5 mg 12/04/20 18:00 12/06/20 12:29 Metoclopramide 10 Mg/2 Ml Vial IVP 5 mg Q6HR KEVEN Administration Multi-Ingred Cream/Lotion/Oil/Oint 1 applic 12/02/20 08:39 12/06/20 12:05 Mineral Oil/Petrolat Ophth Oint EACHEYE 1 applic QPM PRN Administration Dry Eye Pantoprazole Sodium 40 mg 11/30/20 07:00 12/06/20 06:13 Pantoprazole 40 Mg Vial IVP 40 mg QDAC KEVEN Administration Sodium Chloride 10 ml 11/30/20 01:00 12/06/20 08:14 Sodium Chloride Flush 0.9% 10 Ml Syringe IVP 10 ml 0100,0900,1700 KEVEN Administration Sodium Chloride 10 ml 11/29/20 19:01 12/06/20 06:13 Sodium Chloride Flush 0.9% 10 Ml Syringe IVP 10 ml PRN PRN Administration NEEDED PER PROVIDER ORDERS Sodium Chloride 20 ml 12/05/20 06:14 12/06/20 04:53 Sodium Chloride Flush 0.9% 10 Ml Syringe IVP 20 ml PRN PRN Administration After Blood Draw - Lab Result Fish Bone Diagrams: 12/06/20 04:47 12/06/20 04:42 - Additional Planning My Orders: My Active Orders 12/06/20 10:46 Initiate NonViolent Restraint [RC] .PerProtocol 12/06/20 13:19 Sodium Chloride 0.9% 100Ml [Normal Saline 0.9% 100Ml] 100 ml Vecuronium [Norcuron] 100 mg IV 1 mcg/kg/min 12/06/20 14:27 Ketorolac Inj (30Mg) [Toradol Inj (30Mg)] 30 mg IVP Q4HR PRN 12/08/20 05:00 COMPREHENSIVE METABOLIC PANEL [CHEM] Timed MAGNESIUM [CHEM] Timed PHOSPHORUS [CHEM] Timed PREALBUMIN [CHEM] Timed Subjective - Subjective Patient Reports: Other (Sedated on vent, examined while prone) Objective Vital Signs: Vital Signs - 24 hr 12/05/20 12/05/20 12/05/20 15:00 16:00 16:16 Temperature 38.5 C H 38.6 C H Heart Rate 73 Heart Rate [ 74 73 Monitoring electrodes] Respiratory 29 H 30 H 31 H Rate Blood Pressure Blood Pressure 136/65 H 137/68 H [Left Brachial artery] Blood Pressure [Right Brachial artery] O2 Saturation 92 94 12/05/20 12/05/20 12/05/20 17:00 17:38 18:00 Temperature 38.7 C H 38.7 C H Heart Rate Heart Rate [ 73 72 Monitoring electrodes] Respiratory 29 H 29 H Rate Blood Pressure 135/68 H Blood Pressure 126/67 137/68 H [Left Brachial artery] Blood Pressure [Right Brachial artery] O2 Saturation 94 94 12/05/20 12/05/20 12/05/20 19:00 20:00 20:25 Temperature 38.7 C H 38.8 C H Heart Rate 74 Heart Rate [ 74 74 Monitoring electrodes] Respiratory 28 H 29 H 24 Rate Blood Pressure Blood Pressure 134/68 H 121/55 L [Left Brachial artery] Blood Pressure [Right Brachial artery] O2 Saturation 95 93 12/05/20 12/05/20 12/05/20 20:35 21:00 22:00 Temperature 38.2 C H 38.1 C H Heart Rate Heart Rate [ 74 74 Monitoring electrodes] Respiratory 18 16 Rate Blood Pressure 125/63 Blood Pressure 120/61 128/56 L [Left Brachial artery] Blood Pressure [Right Brachial artery] O2 Saturation 91 L 92 12/05/20 12/06/20 12/06/20 23:00 00:00 00:45 Temperature 38.1 C H 38.3 C H Heart Rate 89 Heart Rate [ 73 76 Monitoring electrodes] Respiratory 16 16 26 H Rate Blood Pressure Blood Pressure 127/67 116/56 L [Left Brachial artery] Blood Pressure [Right Brachial artery] O2 Saturation 91 L 91 L 12/06/20 12/06/20 12/06/20 00:49 01:00 02:00 Temperature 38.4 C H 36.5 C Heart Rate Heart Rate [ 85 83 Monitoring electrodes] Respiratory 22 24 Rate Blood Pressure 114/67 Blood Pressure 125/65 125/62 [Left Brachial artery] Blood Pressure [Right Brachial artery] O2 Saturation 90 L 79 L 12/06/20 12/06/20 12/06/20 03:00 03:15 04:00 Temperature 38.7 C H 38.9 C H Heart Rate 83 Heart Rate [ 83 80 Monitoring electrodes] Respiratory 19 18 Rate Blood Pressure Blood Pressure 123/60 124/58 L [Left Brachial artery] Blood Pressure [Right Brachial artery] O2 Saturation 92 91 L 12/06/20 12/06/20 12/06/20 05:00 05:35 06:00 Temperature 39.1 C H 39.2 C H Heart Rate 76 Heart Rate [ 78 82 Monitoring electrodes] Respiratory 15 31 H 19 Rate Blood Pressure 123/56 L Blood Pressure 123/56 L 109/58 L [Left Brachial artery] Blood Pressure [Right Brachial artery] O2 Saturation 91 L 88 L 12/06/20 12/06/20 12/06/20 07:00 07:59 08:08 Temperature 39.2 C H 39.4 C H Heart Rate 85 Heart Rate [ 87 86 Monitoring electrodes] Respiratory 15 20 Rate Blood Pressure Blood Pressure 115/61 111/61 [Left Brachial artery] Blood Pressure [Right Brachial artery] O2 Saturation 93 90 L 12/06/20 12/06/20 12/06/20 09:00 10:00 11:00 Temperature 39.5 C H 39.6 C H 3906 C H Heart Rate Heart Rate [ 84 82 81 Monitoring electrodes] Respiratory 28 H 28 H 28 H Rate Blood Pressure Blood Pressure 119/60 123/60 124/67 [Left Brachial artery] Blood Pressure [Right Brachial artery] O2 Saturation 94 96 12/06/20 12/06/20 12/06/20 11:53 12:00 13:00 Temperature 39.5 C H 39.4 C H Heart Rate 86 Heart Rate [ 85 86 Monitoring electrodes] Respiratory 30 H 26 H 27 H Rate Blood Pressure Blood Pressure [Left Brachial artery] Blood Pressure 125/58 L 125/88 H [Right Brachial artery] O2 Saturation 98 12/06/20 12/06/20 12/06/20 13:04 13:13 14:00 Temperature 38.9 C H Heart Rate 85 Heart Rate [ 86 Monitoring electrodes] Respiratory 24 Rate Blood Pressure 125/88 H Blood Pressure [Left Brachial artery] Blood Pressure 111/59 L [Right Brachial artery] O2 Saturation 98 Oxygen O2 Source Mechanical ventilator Oxygen Flow Rate 15 I&O (Last 24 Hrs): Intake and Output Totals x24h 12/04/20 12/05/20 12/06/20 23:59 23:59 23:59 Intake Total 4969.341 4904.294 3819.198 Output Total 4035 4075 2990 Balance 934.341 829.294 829.198 General: Other (sedated) HEENT: Other (ET and ng tubes in place) Cardiovascular: Regular rate Respiratory: Other (Clear lung gusman posteriorly) Abdomen: Other (Laying supine, abdomen not seen) Extremities: No edema - Results Results: Laboratory Results WBC 23.0 x10^3/uL (4.8-10.8) H 12/06/20 04:47 RBC 3.40 10^6/uL (4.20-5.40) L 12/06/20 04:47 Hgb 10.3 g/dL (12.0-16.0) L 12/06/20 04:47 Hct 32.8 % (37.0-47.0) L 12/06/20 04:47 MCV 96.5 fL (81.0-99.0) 12/06/20 04:47 MCH 30.3 pg (27.0-31.0) 12/06/20 04:47 MCHC 31.4 g/dL (32.0-36.0) L 12/06/20 04:47 RDW 14.0 % (12.0-15.0) 12/06/20 04:47 Plt Count 167 10^3/uL (130-450) 12/06/20 04:47 MPV 11.1 fL (7.9-10.8) H 12/06/20 04:47 Neut # (Auto) Not Reportable 12/06/20 04:47 Lymph # (Auto) Not Reportable 12/06/20 04:47 [place] # (Auto) Not Reportable 12/06/20 04:47 Eos # (Auto) Not Reportable 12/06/20 04:47 Baso # (Auto) Not Reportable 12/06/20 04:47 Absolute Nucleated RBC Not Reportable 12/06/20 04:47 Total Counted 100 12/06/20 04:47 Band Neuts % (Manual) 0 % (0-10) 12/06/20 04:47 Abnorm Lymph % (Manual) 0 % 12/06/20 04:47 Metamyelocytes % 3 % (-0) H 12/02/20 04:30 Myelocytes % 1 % (-0) H 12/06/20 04:47 Nucleated RBC % Not Reportable 12/06/20 04:47 Neutrophils # (Manual) 21.2 10^3/uL (1.5-6.6) H 12/06/20 04:47 Lymphocytes # (Manual) 0.5 10^3/uL (1.5-3.5) L 12/06/20 04:47 Monocytes # (Manual) 1.2 10^3/uL (0.0-1.0) H 12/06/20 04:47 Eosinophils # (Manual) 0.0 10^3/uL (0-0.7) 12/06/20 04:47 Basophils # (Manual) 0.0 10^3/uL (0-0.1) 12/06/20 04:47 Differential Comment MANUAL DIFFERENTIAL 12/06/20 04:47 Manual Slide Review Indicated 12/04/20 04:41 WBC Morphology NORMAL APPEARANCE (NORMAL) 12/06/20 04:47 Platelet Estimate NORMAL (130-450,000) (NORMAL) 12/06/20 04:47 Platelet Morphology NORMAL APPEARANCE (NORMAL) 12/06/20 04:47 RBC Morph Micro Appear NORMAL APPEARANCE (NORMAL) 12/06/20 04:47 PT 15.4 secs (9.9-12.6) H 11/29/20 18:41 INR 1.4 (0.8-1.2) H 11/29/20 18:41 D-Dimer > 1050.0 ng/mL (200.0-255.0) H 12/03/20 04:10 Bld Gas Analysis Time 0555 12/06/20 05:48 Sample Site LEFT RADIAL 12/06/20 05:48 ABG pH 7.35 (7.35-7.45) 12/06/20 05:48 ABG pCO2 41 mmHg (34-45) 12/06/20 05:48 ABG pO2 58 mmHg (80-100) L 12/06/20 05:48 ABG HCO3 22.1 mmol/L (22.0-26.0) 12/06/20 05:48 ABG Total CO2 23.4 MMOL/L (21.0-29.0) 12/06/20 05:48 ABG O2 Saturation 87 % (94-98) L* 12/06/20 05:48 ABG Base Excess -3.2 mmol/L (-2.0-3.0) L 12/06/20 05:48 Luis Antonio Test POSITIVE 12/06/20 05:48 VBG pH 7.406 (7.31-7.41) 11/29/20 18:41 VBG pCO2 34.4 mmHg (41-51) L 11/29/20 18:41 VBG pO2 26.2 mmHg (25-47) 11/29/20 18:41 VBG HCO3 21.1 mmol/L (23-28) L 11/29/20 18:41 VBG Total CO2 22.2 mmol/L (24-29) L 11/29/20 18:41 VBG O2 Saturation 48.7 % (60-80) L 11/29/20 18:41 VBG Base Excess -2.8 mmol/L (-2 - +2) L 11/29/20 18:41 Respiration Rate 24 b/min 12/06/20 05:48 O2 Delivery Device VENTILATOR 12/06/20 05:48 Vent Mode ASSIST/CONTROL 12/06/20 05:48 FiO2 100.00 12/06/20 05:48 Tidal Volume 530 mL 12/06/20 05:48 PEEP 15 cmH2O 12/06/20 05:48 Pressure Support Vent 10 cmH2O 11/30/20 05:05 Sodium 143 mmol/L (135-145) 12/06/20 04:42 Potassium 4.4 mmol/L (3.5-5.0) 12/06/20 04:42 Chloride 108 mmol/L (101-111) 12/06/20 04:42 Carbon Dioxide 25 mmol/L (21-32) 12/06/20 04:42 Anion Gap 10.0 (6-13) 12/06/20 04:42 BUN 32 mg/dL (6-20) H 12/06/20 04:42 Creatinine 0.8 mg/dL (0.4-1.0) 12/06/20 04:42 Estimated GFR (MDRD) 72 (>89) L 12/06/20 04:42 Glucose 158 mg/dL (70-100) H 12/06/20 04:42 POC Whole Bld Glucose 165 mg/dL (70 - 100) H 12/06/20 12:00 Estimat Average Glucose 140 mg/dL (70-100) H 12/04/20 04:41 Hemoglobin A1c % 6.5 % (4.27-6.07) H 12/04/20 04:41 Lactic Acid 1.5 mmol/L (0.5-2.2) 11/30/20 05:12 Calcium 8.7 mg/dL (8.5-10.3) 12/06/20 04:42 Phosphorus 2.6 mg/dL (2.5-4.6) 12/05/20 04:20 Magnesium 2.2 mg/dL (1.7-2.8) 12/05/20 04:20 Total Bilirubin 0.6 mg/dL (0.2-1.0) 12/06/20 04:42 Direct Bilirubin 0.3 mg/dL (0.1-0.5) 12/01/20 05:30 AST 17 IU/L (10-42) 12/06/20 04:42 ALT 22 IU/L (10-60) 12/06/20 04:42 Alkaline Phosphatase 97 IU/L (42-121) 12/06/20 04:42 Troponin I High Sens 14.9 ng/L (2.3-14.8) H* 11/30/20 05:12 Total Protein 5.6 g/dL (6.7-8.2) L 12/06/20 04:42 Albumin 1.8 g/dL (3.2-5.5) L 12/06/20 04:42 Globulin 3.8 g/dL (2.1-4.2) 12/06/20 04:42 Albumin/Globulin Ratio 0.5 (1.0-2.2) L 12/06/20 04:42 Prealbumin 12 mg/dL (18-45) L 12/05/20 04:20 Triglycerides 344 mg/dL (-149) H 12/01/20 05:30 Nasal Screen MRSA (PCR) NEGATIVE (NEGATIVE) 11/29/20 21:15 - Procedures Procedures: Procedures CARPAL TUNNEL RELEASE (04/16/13) DESTRUCT-KNEE LESION NEC (07/09/14) EXCIS KNEE SEMILUN CARTL (07/09/14) EXPLOR TEND SHEATH-HAND (04/16/13)
[2020-12-06 16:12] LABS: ABG BASE EXCESS -5.5 mmol/L (-2.0-3.0); ABG HCO3 23.7 mmol/L (22.0-26.0); ABG OXYGEN SATURATION 94 % (94-98); ABG PCO2 67 mmHg (34-45); ABG PH 7.17 (7.35-7.45); ABG PO2 90 mmHg (80-100); ABG TCO2 25.8 MMOL/L (21.0-29.0); ALLEN TEST POSITIVE
[2020-12-06 16:13] LABS: ABG MODE OF VENTILATION ASSIST/CONTROL; ABG RESPIRATORY RATE 32 b/min
[2020-12-06 17:54] LABS: ABG PH 7.21 (7.35-7.45); ABG PO2 78 mmHg (80-100)
[2020-12-06 17:55] LABS: ABG HCO3 24.5 mmol/L (22.0-26.0); ABG OXYGEN SATURATION 93 % (94-98); ABG TCO2 26.4 MMOL/L (21.0-29.0); ALLEN TEST POSITIVE
[2020-12-06 17:56] LABS: ABG MODE OF VENTILATION ASSIST/CONTROL; ABG RESPIRATORY RATE 35 b/min
[2020-12-06 17:58] LABS: ABG PCO2 62 mmHg (34-45)
--- NOTE | 2020-12-06 21:04 | XRAY Report ---
PROCEDURE: No-Charge 1V Abdomen INDICATIONS: OGT PLACEMENT TECHNIQUE: 1 view of the abdomen were acquired. COMPARISON: Same day CXR. FINDINGS: Surgical changes and devices: Enteric tube coursing into the stomach. The tip projects over the lower abdomen. Bowel: Possibly of bowel gas limits evaluation for obstruction. Soft tissues: Pulmonary airspace opacity bilaterally. No masses; visualized solid organ contours mattie ear normal in size. No suspicious abdominal calcifications. Bones: No suspicious bony abnormalities. IMPRESSION: Enteric tube coursing into the stomach with the tip projecting in the lower midabdomen. The stomach m ay be distended. Bilateral pulmonary airspace opacity. Reviewed by: Tesfaye Garcia MD on 12/06/2020 9:03 PM [facility] Approved by: Tesfaye Garcia MD on 12/06/2020 9:03 PM [facility] Station ID: [id number]
[2020-12-07] MEDS: diltiaZEM INJ 5 MG/ML VIAL IVP SCH ×6 (01:05→20:47)
[2020-12-07] MEDS: SODIUM CHLORIDE FLUSH 0.9% 10 ML SYRINGE IVP SCH ×3 (01:05→17:40)
[2020-12-07] MEDS: DEXMEDETOMIDINE 1,000 MCG in SODIUM CHLORIDE 0.9% 250 ML IV SCH ×2 (01:44→13:43)
[2020-12-07] MEDS: ALBUTEROL NEB 2.5 MG/3 ML INH PRN (03:10)
[2020-12-07] MEDS: fentaNYL 2,500 MCG/250 ML 2,500 MCG/250 ML BAG IV SCH ×5 (03:23→22:35)
[2020-12-07] MEDS: metroNIDAZOLE 500 MG/100 ML 500 MG/100 ML BAG IV SCH ×3 (03:31→19:40)
[2020-12-07] MEDS: MIDAZOLAM DRIP 50 MG/100 ML BAG IV SCH ×3 (03:37→17:31)
[2020-12-07] MEDS: CEFEPIME 2 GM in SODIUM CHLORIDE 0.9% MINIBAG 100 ML IV SCH ×3 (05:00→20:55)
[2020-12-07 05:18] LABS: BASOPHILS % (AUTO) 0.2 %; HCT - HEMATOCRIT 32.8 % (37.0-47.0); LYMPHOCYTES # (AUTO) 0.6 10^3/uL (1.5-3.5); LYMPHOCYTES % (AUTO) 3.1 %; MEAN CORPUSCULAR HEMOGLOBIN 30.5 pg (27.0-31.0); MEAN CORPUSCULAR HGB CONC 30.5 g/dL (32.0-36.0); MEAN PLATELET VOLUME 10.7 fL (7.9-10.8); MONOCYTES # (AUTO) 0.6 10^3/uL (0.0-1.0); MONOCYTES % (AUTO) 3.1 %; NEUTROPHILS # (AUTO) 15.9 10^3/uL (1.5-6.6); NEUTROPHILS % (AUTO) 89.6 %; PLT - PLATELET COUNT 152 10^3/uL (130-450); RED BLOOD COUNT 3.28 10^6/uL (4.20-5.40); RED CELL DISTRIBUTION WIDTH 14.2 % (12.0-15.0); WHITE BLOOD COUNT 17.8 x10^3/uL (4.8-10.8)
[2020-12-07 05:23] LABS: CALCIUM, IONIZED 1.22 mmol/L (1.15-1.33); VBG PH 7.272 (7.31-7.41)
[2020-12-07 05:30] LABS: ALBUMIN 1.7 g/dL (3.2-5.5); ALBUMIN/GLOBULIN RATIO 0.5 (1.0-2.2); BILIRUBIN,TOTAL 0.5 mg/dL (0.2-1.0); CALCIUM 8.4 mg/dL (8.5-10.3); POTASSIUM 4.7 mmol/L (3.5-5.0); TOTAL PROTEIN 5.4 g/dL (6.7-8.2)
[2020-12-07] MEDS: METOCLOPRAMIDE 10 MG/2 ML VIAL IVP SCH ×4 (05:32→23:51)
[2020-12-07] MEDS: INSULIN REGULAR HUMAN 300 UNIT/3 ML VIAL SUBQ SCH ×3 (05:32→17:41)
[2020-12-07] MEDS: PANTOPRAZOLE 40 MG VIAL IVP SCH (05:33)
[2020-12-07 05:37] LABS: ABG HCO3 21.7 mmol/L (22.0-26.0); ABG MODE OF VENTILATION ASSIST/CONTROL; ABG OXYGEN SATURATION 91 % (94-98); ABG PCO2 47 mmHg (34-45); ABG PH 7.28 (7.35-7.45); ABG PO2 68 mmHg (80-100); ABG RESPIRATORY RATE 35 b/min; ABG TCO2 23.1 MMOL/L (21.0-29.0); ALLEN TEST POSITIVE
[2020-12-07] MEDS: VECURONIUM 100 MG in SODIUM CHLORIDE 0.9% 100ML 100 ML IV SCH ×2 (05:39→17:31)
[2020-12-07 05:45] LABS: MAGNESIUM 2.4 mg/dL (1.7-2.8); PHOSPHORUS 4.7 mg/dL (2.5-4.6)
[2020-12-07] MEDS: FORMOTEROL FUMARATE NEB 20 MCG/2 ML INH SCH ×2 (07:15→20:52)
[2020-12-07] MEDS: BUDESONIDE 0.5 MG/2 ML NEB INH SCH ×2 (07:15→20:52)
[2020-12-07] MEDS: IPRATROPIUM/ALBUTEROL 3 ML NEB INH SCH ×4 (07:15→20:51)
[2020-12-07] MEDS: ENOXAPARIN 40 MG/0.4 ML SYRINGE SUBQ SCH (09:08)
[2020-12-07] MEDS: CHLORHEXIDINE GLUCONATE 15 ML UDC PO SCH ×2 (09:08→20:51)
[2020-12-07] MEDS: DEXAMETHASONE 4 MG/ML VIAL IVP SCH (09:08)
[2020-12-07] MEDS: CARBOXYMETHYLCELLULOSE OPHTH DROPS EACHEYE PRN (09:14)
[2020-12-07] MEDS: levoFLOXacin 750 MG/150 ML 750 MG/150 ML BAG IV SCH (11:15)
[2020-12-07] MEDS ORDERED: SALINE ENEMA 133 ML BOTTLE RC STA (13:46)
--- NOTE | 2020-12-07 13:48 | PROVIDER PROGRESS NOTE ---
Assessment/Plan - Problem List (1) Acute respiratory failure with hypoxia Assessment/Plan: She remains intubated and on the vent Eventual weaning off the vent and extubation is planned vs transfer for a trach if she is on the vent for 10+ days. (2) Pneumonia due to COVID-19 virus Assessment/Plan: She did not qualify for getting Remdesivir because she had a severe case of COVID and needed intubation on her first day. She is getting Decadron and Lovenox. She had daily fevers of 38+ to 39.5 C daily since admission, until today after Tylenol alternating with NSAID IV was started yesterday. She is getting nutrition via ng tube only when she is supine (because of logistics). Yesterday a lot of changes were made for pulmonary management: We requested help from Anesthesia regarding starting an iv drip of paralytic drug (as per NIH guidelines for ARDS in COVID pts). Pharmacy was requested to write for a titratable Vecuronium drip. It needs to be set at her IDEAL weight, not her actual weight. Anesthesia provider on-call Stephanie, instructed myself, Skyler Reina RN and CSAR Rendon, and 2 RTs Arleen White,RT and Scar Smith RT, how to initiate the drip, testing for [id number], keeping an hourly log of testing TOF results once a proper Vecuronium rate has been found, to achieve a target TOF of 1-2 twitches, titrating up iv Vecuronium if needed every 30 min, and retesting TOF 30 min after a Vecuronium rate change. This was done in the patient's room. I was giving orders for Vecuronium rate changes and when to test for TOF and adjusting ventil setting, as she became more paralyzed. She was able to come down on PEEP from max of 24, to 18, then finally set at 20. Her resp rate of 30 decreased to 24 riding the vent. With this her sats improved to 95%. FIO2 could be decreased from 100% to 90% to 80%. Follow ABG when v ent changes are made. The current 3 iv sedative drips should continue: iv Versed, iv Precedex and iv Fentynyl. The Precedex potentiates the Vecuronium effect. This combination of meds does not cause hypertriglyceridemia, like iv Propofol drip does (which she is not on, because it gave inadequate sedation when tried). The plan is to keep her on all three sedatives, the paralytic agent (at it's best iv setting) and continue her best vent settings, for 72 hours and only change her from proning to supining. Currently, the Anesthesia provider on-call for the day, prones her at about 10 a.m. and supinates her at about 8 p.m. every day. Having 12 hours and 12 hours would be more optimal. I spoke to the son Will and Will's in person yesterday and updated them. (3) Constipation Assessment/Plan: There has been no BM since admission. Today she had mucousy stool after a Fleets enema. A KUB film was done yesterday but did not comment on stool present in the colon or not. Another KUB is planned for tonight, after she is supine again, since the XRay film cannot be positioned under her abdomen easily, when she is prone, as it may dislodge equipment. The plan may need to be to give Lactulose per ng, for a BM when she is supine. Her ng feeds only drip in when she is supine and therefore she only gets about 600 calories per day. (4) Asthma with acute exacerbation Qualifiers: Asthma severity: severe Assessment/Plan: She is on nebs and steroids (5) Prerenal azotemia Assessment/Plan: She has had mild pre-renal azotemia. She gets iv fluids only from her iv sedation drip meds and iv antibiotics, but has needed iv Lasix prn, for rhonchi and CHF on CXRs. (6) Hyperglycemia Assessment/Plan: Was not a diabetic before this hospitalization. Perhaps the stress plus Decadron doses have uncovered a borderline diabetic, because an A1c came back at 6.5 She was started on sliding scale insulin coverage several days ago. (7) SVT (supraventricular tachycardia) Assessment/Plan: According to the family, she has had problems with SVT for many years. She had sustained VT on admission and was on a diltiazem drip. This is now been transitioned to scheduled doses of IV diltiazem every 4 hours, which supresses SVT. (8) Hx of essential hypertension Assessment/Plan: Her home BP med has not been resumed since all of our sedatives and other meds, like Lasix, are keeping her BP in a normal range. (9) Myringotomy tube status Assessment/Plan: She had elective myringotomy tubes scheduled to be done with ENT and took this Covid test which was positive, when she was asymptomatic and 3 days later began to have symptoms. She never had the tubes inserted by ENT. Yesterday the family told me that she has these tubes in for "poor equilibrium". Because of the history of ENT problems, and having an ET tube for several days, her high fevers may have also been caused by sinusitis. Therefore, she was started on empiric IV antibiotic Flagyl for anaerobic coverage, several days ago. (10) OLI (acute kidney injury) Assessment/Plan: Resolved (11) Hypokalemia Assessment/Plan: Replaced and resolved - Current Meds Current Meds: Current Medications Generic Name Dose Route Start Last Admin Trade Name Freq PRN Reason Stop Dose Admin Albuterol 2.5 mg 11/30/20 15:42 12/07/20 03:10 Albuterol Neb 2.5 Mg/3 Ml INH 2.5 mg Q4HR PRN Administration Dyspnea Albuterol/Ipratropium 3 ml 11/30/20 07:00 12/07/20 07:15 Ipratropium/Albuterol 3 Ml Neb INH 3 ml RTQID KEVEN Administration Bisacodyl 10 mg 12/05/20 08:00 12/05/20 09:46 Bisacodyl 10 Mg Supp MT 10 mg DAILY PRN Administration Constipation Budesonide 0.5 mg 11/30/20 07:00 12/07/20 07:15 Budesonide 0.5 Mg/2 Ml Neb INH 0.5 mg RTBID KEVEN Administration Carboxymethylcellulose 1 drops 12/02/20 08:38 12/07/20 09:14 Carboxymethylcellulose Ophth Drops EACHEYE 1 ea PRN PRN Administration Dry Eye Chlorhexidine Gluconate 15 ml 11/30/20 09:00 12/07/20 09:08 Chlorhexidine Gluconate 15 Ml Udc PO 15 ml BID KEVEN Administration Dexamethasone 6 mg 11/30/20 09:00 12/07/20 09:08 Dexamethasone 4 Mg/Ml Vial IVP 6 mg DAILY KEVEN Administration Diltiazem HCl 2.5 mg 12/05/20 05:00 12/07/20 12:36 Diltiazem Inj 5 Mg/Ml Vial IVP 2.5 mg Q4H KEVEN Administration Enoxaparin Sodium 40 mg 12/01/20 11:00 12/07/20 09:08 Enoxaparin 40 Mg/0.4 Ml Syringe SUBQ 40 mg DAILY KEVEN Administration Formoterol Fumarate 20 mcg 11/30/20 07:00 12/07/20 07:15 Formoterol Fumarate Neb 20 Mcg/2 Ml INH 20 mcg RTBID KEVEN Administration Acetaminophen 100 mls @ 400 mls/hr 11/30/20 10:18 12/06/20 10:11 Ofirmev IV Infused Q6HR PRN Infusion Pain or Fever > 38C (100.4F) Fentanyl 2,500 mcg in 250 mls @ 11.6 mls/hr 12/01/20 10:00 12/07/20 12:36 Fentanyl IV 5 mcg/kg/hr .[id number] KEVEN 58 mls/hr Administration Protocol 1 MCG/KG/HR Sodium Chloride 500 mls @ 20 mls/hr 12/01/20 11:50 12/06/20 00:00 Normal Saline 0.9% IV Infused Q24H PRN Infusion TKO RATE Levofloxacin 750 mg in 150 mls @ 100 mls/hr 12/02/20 11:00 12/07/20 12:45 Levaquin 750 Mg/150 Ml IV Infused Q24H KEVEN Infusion Midazolam HCl 50 mg in 100 mls @ 9.4 mls/hr 12/02/20 13:00 12/07/20 10:43 Versed Drip IV 0.06 mg/kg/hr .[id number] KEVEN 14.1 mls/hr Administration Protocol 0.04 MG/KG/HR Dexmedetomidine HCl 1,000 mcg/ 260 mls @ 15.275 mls/hr 12/02/20 19:00 12/07/20 13:43 Sodium Chloride IV 0.8 mcg/kg/hr .Q17H2M KEVEN 24.44 mls/hr Administration Protocol 0.5 MCG/KG/HR Cefepime HCl 2 gm/ Sodium 100 mls @ 200 mls/hr 12/03/20 13:03 12/07/20 05:39 Chloride IV Infused Q8H KEVEN Infusion Metronidazole 500 mg in 100 mls @ 100 mls/hr 12/04/20 12:00 12/07/20 12:49 Flagyl 500 Mg/100 Ml IV 100 mls/hr Q8H KEVEN Administration Vecuronium [place] 100 mg/ 100 mls @ 3.972 mls/hr 12/06/20 13:19 12/07/20 07:00 Sodium Chloride IV 1 mcg/kg/min .[id number] KEVEN 3.972 mls/hr Titration Protocol 1 MCG/KG/MIN Insulin Human Regular 1 - 5 unit 12/04/20 00:00 12/07/20 11:32 Insulin Regular Human 300 Unit/3 Ml Vial SUBQ 1 unit Q6HR KEVEN Administration Protocol Ketorolac Tromethamine 30 mg 12/06/20 14:27 12/06/20 14:58 Ketorolac 30 Mg/Ml Vial IVP 12/11/20 14:26 30 mg Q4HR PRN Administration Fever >101 Lorazepam 0.5 mg 11/29/20 22:39 12/03/20 13:42 Lorazepam 2 Mg/Ml Vial IVP 0.5 mg Q2H PRN Administration Anxiety Metoclopramide HCl 5 mg 12/04/20 18:00 12/07/20 12:36 Metoclopramide 10 Mg/2 Ml Vial IVP 5 mg Q6HR KEVEN Administration Multi-Ingred Cream/Lotion/Oil/Oint 1 applic 12/02/20 08:39 12/06/20 12:05 Mineral Oil/Petrolat Ophth Oint EACHEYE 1 applic QPM PRN Administration Dry Eye Pantoprazole Sodium 40 mg 11/30/20 07:00 12/07/20 05:33 Pantoprazole 40 Mg Vial IVP 40 mg QDAC KEVEN Administration Sodium Chloride 10 ml 11/30/20 01:00 12/07/20 07:59 Sodium Chloride Flush 0.9% 10 Ml Syringe IVP 10 ml 0100,0900,1700 KEVEN Administration Sodium Chloride 10 ml 11/29/20 19:01 12/06/20 06:13 Sodium Chloride Flush 0.9% 10 Ml Syringe IVP 10 ml PRN PRN Administration NEEDED PER PROVIDER ORDERS Sodium Chloride 20 ml 12/05/20 06:14 12/06/20 04:53 Sodium Chloride Flush 0.9% 10 Ml Syringe IVP 20 ml PRN PRN Administration After Blood Draw - Lab Result Fish Bone Diagrams: 12/07/20 05:13 12/07/20 05:13 - Additional Planning My Orders: My Active Orders 12/06/20 13:19 Sodium Chloride 0.9% 100Ml [Normal Saline 0.9% 100Ml] 100 ml Vecuronium [Norcuron] 100 mg IV 1 mcg/kg/min 12/06/20 14:27 Ketorolac Inj (30Mg) [Toradol Inj (30Mg)] 30 mg IVP Q4HR PRN 12/07/20 13:46 Saline Enema [Fleets Saline Enema] 133 ml RC ONCE STA 12/08/20 05:00 CALCIUM, IONIZED ([facility]) [BG] DAILYLAB COMPREHENSIVE METABOLIC PANEL [CHEM] Timed MAGNESIUM [CHEM] DAILYLAB MAGNESIUM [CHEM] Timed PHOSPHORUS [CHEM] DAILYLAB PHOSPHORUS [CHEM] Timed PREALBUMIN [CHEM] Timed 12/09/20 05:00 CALCIUM, IONIZED ([facility]) [BG] DAILYLAB MAGNESIUM [CHEM] DAILYLAB PHOSPHORUS [CHEM] DAILYLAB Subjective - Subjective Patient Reports: Other (Sedated and prone) Objective Vital Signs: Vital Signs - 24 hr 12/06/20 12/06/20 12/06/20 14:00 15:00 16:00 Temperature 38.9 C H 38.6 C H 38.2 C H Heart Rate Heart Rate [ 86 83 79 Monitoring electrodes] Respiratory 24 24 32 H Rate Blood Pressure Blood Pressure 111/59 L 111/57 L 98/57 L [Right Brachial artery] O2 Saturation 98 96 97 12/06/20 12/06/20 12/06/20 16:56 17:00 17:11 Temperature 37.6 C Heart Rate 79 Heart Rate [ 75 Monitoring electrodes] Respiratory 35 H 35 H Rate Blood Pressure 99/54 L Blood Pressure 99/54 L [Right Brachial artery] O2 Saturation 97 12/06/20 12/06/20 12/06/20 18:00 19:00 19:30 Temperature 37.6 C 37.3 C Heart Rate 85 73 Heart Rate [ 75 75 Monitoring electrodes] Respiratory 35 H 35 H 35 H Rate Blood Pressure Blood Pressure 106/57 L 115/59 L [Right Brachial artery] O2 Saturation 97 98 12/06/20 12/06/20 12/06/20 20:24 20:26 21:00 Temperature 37.2 C Heart Rate Heart Rate [ 71 66 Monitoring electrodes] Respiratory 35 H 35 H Rate Blood Pressure 125/68 Blood Pressure 125/68 125/67 [Right Brachial artery] O2 Saturation 98 97 12/06/20 12/06/20 12/06/20 22:00 23:00 23:40 Temperature 36.8 C 36.9 C Heart Rate 64 Heart Rate [ 63 65 Monitoring electrodes] Respiratory 35 H 35 H Rate Blood Pressure Blood Pressure 132/71 H 126/75 [Right Brachial artery] O2 Saturation 98 98 12/07/20 12/07/20 12/07/20 00:00 01:00 01:05 Temperature 36.9 C 37.2 C Heart Rate Heart Rate [ 66 68 Monitoring electrodes] Respiratory 35 H 35 H Rate Blood Pressure 134/58 H Blood Pressure 124/62 134/58 H [Right Brachial artery] O2 Saturation 94 94 12/07/20 12/07/20 12/07/20 02:00 03:00 03:10 Temperature 37.2 C 37.3 C Heart Rate 68 Heart Rate [ 69 69 Monitoring electrodes] Respiratory 35 H 35 H 35 H Rate Blood Pressure Blood Pressure 117/66 116/62 [Right Brachial artery] O2 Saturation 96 96 12/07/20 12/07/20 12/07/20 04:00 05:00 05:06 Temperature 37.3 C 37.4 C Heart Rate Heart Rate [ 75 73 Monitoring electrodes] Respiratory 35 H 35 H Rate Blood Pressure 121/61 Blood Pressure 121/57 L 121/61 [Right Brachial artery] O2 Saturation 92 93 12/07/20 12/07/20 12/07/20 05:20 06:00 07:00 Temperature 37.4 C 37.5 C Heart Rate 70 Heart Rate [ 74 73 Monitoring electrodes] Respiratory 35 H 35 H Rate Blood Pressure Blood Pressure 115/63 122/54 L [Right Brachial artery] O2 Saturation 99 100 12/07/20 12/07/20 12/07/20 07:18 07:20 08:00 Temperature 37.4 C Heart Rate 74 74 Heart Rate [ 75 Monitoring electrodes] Respiratory 35 H 35 H Rate Blood Pressure Blood Pressure 104/62 [Right Brachial artery] O2 Saturation 99 12/07/20 12/07/20 12/07/20 09:00 09:08 10:00 Temperature 37.4 C 37.6 C Heart Rate 78 Heart Rate [ 75 78 Monitoring electrodes] Respiratory 35 H 35 H Rate Blood Pressure 114/68 Blood Pressure 124/67 122/68 [Right Brachial artery] O2 Saturation 99 100 12/07/20 12/07/20 12/07/20 11:00 12:00 12:05 Temperature 37.7 C 37.5 C Heart Rate 78 Heart Rate [ 78 81 Monitoring electrodes] Respiratory 35 H 35 H Rate Blood Pressure Blood Pressure 105/60 117/66 [Right Brachial artery] O2 Saturation 98 100 12/07/20 12/07/20 12:36 13:00 Temperature 37.7 C Heart Rate Heart Rate [ 77 Monitoring electrodes] Respiratory 35 H Rate Blood Pressure 120/64 Blood Pressure 119/64 [Right Brachial artery] O2 Saturation 100 Oxygen O2 Source Mechanical ventilator Oxygen Flow Rate 15 I&O (Last 24 Hrs): Intake and Output Totals x24h 12/05/20 12/06/20 12/07/20 23:59 23:59 23:59 Intake Total 4904.294 5474.433 1986.074 Output Total 4075 3845 1735 Balance 335.652 9245.433 251.074 General: Other (Exam taken from RT and RN reports. She is sedated and prone, on the vent.) Neuro: Other (Sedated and paralyzed on vecuronium) Cardiovascular: Regular rate Respiratory: No respiratory distress Extremities: No edema - Results Results: Laboratory Results WBC 17.8 x10^3/uL (4.8-10.8) H 12/07/20 05:13 RBC 3.28 10^6/uL (4.20-5.40) L 12/07/20 05:13 Hgb 10.0 g/dL (12.0-16.0) L 12/07/20 05:13 Hct 32.8 % (37.0-47.0) L 12/07/20 05:13 MCV 100.0 fL (81.0-99.0) H 12/07/20 05:13 MCH 30.5 pg (27.0-31.0) 12/07/20 05:13 MCHC 30.5 g/dL (32.0-36.0) L 12/07/20 05:13 RDW 14.2 % (12.0-15.0) 12/07/20 05:13 Plt Count 152 10^3/uL (130-450) 12/07/20 05:13 MPV 10.7 fL (7.9-10.8) 12/07/20 05:13 Neut # (Auto) 15.9 10^3/uL (1.5-6.6) H 12/07/20 05:13 Lymph # (Auto) 0.6 10^3/uL (1.5-3.5) L 12/07/20 05:13 [place] # (Auto) 0.6 10^3/uL (0.0-1.0) 12/07/20 05:13 Eos # (Auto) 0.0 10^3/uL (0.0-0.7) 12/07/20 05:13 Baso # (Auto) 0.0 10^3/uL (0.0-0.1) 12/07/20 05:13 Absolute Nucleated RBC 0.00 x10^3/uL 12/07/20 05:13 Total Counted 100 12/06/20 04:47 Band Neuts % (Manual) 0 % (0-10) 12/06/20 04:47 Abnorm Lymph % (Manual) 0 % 12/06/20 04:47 Metamyelocytes % 3 % (-0) H 12/02/20 04:30 Myelocytes % 1 % (-0) H 12/06/20 04:47 Nucleated RBC % 0.0 /100WBC 12/07/20 05:13 Neutrophils # (Manual) 21.2 10^3/uL (1.5-6.6) H 12/06/20 04:47 Lymphocytes # (Manual) 0.5 10^3/uL (1.5-3.5) L 12/06/20 04:47 Monocytes # (Manual) 1.2 10^3/uL (0.0-1.0) H 12/06/20 04:47 Eosinophils # (Manual) 0.0 10^3/uL (0-0.7) 12/06/20 04:47 Basophils # (Manual) 0.0 10^3/uL (0-0.1) 12/06/20 04:47 Differential Comment MANUAL DIFFERENTIAL 12/06/20 04:47 Manual Slide Review Indicated 12/04/20 04:41 WBC Morphology NORMAL APPEARANCE (NORMAL) 12/06/20 04:47 Platelet Estimate NORMAL (130-450,000) (NORMAL) 12/06/20 04:47 Platelet Morphology NORMAL APPEARANCE (NORMAL) 12/06/20 04:47 RBC Morph Micro Appear NORMAL APPEARANCE (NORMAL) 12/06/20 04:47 PT 15.4 secs (9.9-12.6) H 11/29/20 18:41 INR 1.4 (0.8-1.2) H 11/29/20 18:41 D-Dimer > 1050.0 ng/mL (200.0-255.0) H 12/03/20 04:10 Bld Gas Analysis Time 0535 12/07/20 05:25 Sample Site LEFT RADIAL 12/07/20 05:25 ABG pH 7.28 (7.35-7.45) L 12/07/20 05:25 ABG pCO2 47 mmHg (34-45) H 12/07/20 05:25 ABG pO2 68 mmHg (80-100) L 12/07/20 05:25 ABG HCO3 21.7 mmol/L (22.0-26.0) L 12/07/20 05:25 ABG Total CO2 23.1 MMOL/L (21.0-29.0) 12/07/20 05:25 ABG O2 Saturation 91 % (94-98) L 12/07/20 05:25 ABG Base Excess -5.0 mmol/L (-2.0-3.0) L 12/07/20 05:25 Luis Antonio Test POSITIVE 12/07/20 05:25 VBG pH 7.272 (7.31-7.41) L 12/07/20 05:13 VBG pCO2 34.4 mmHg (41-51) L 11/29/20 18:41 VBG pO2 26.2 mmHg (25-47) 11/29/20 18:41 VBG HCO3 21.1 mmol/L (23-28) L 11/29/20 18:41 VBG Total CO2 22.2 mmol/L (24-29) L 11/29/20 18:41 VBG O2 Saturation 48.7 % (60-80) L 11/29/20 18:41 VBG Base Excess -2.8 mmol/L (-2 - +2) L 11/29/20 18:41 Ionized Calcium 1.22 mmol/L (1.15-1.33) 12/07/20 05:13 Respiration Rate 35 b/min 12/07/20 05:25 O2 Delivery Device VENTILATOR 12/07/20 05:25 Vent Mode ASSIST/CONTROL 12/07/20 05:25 FiO2 70.00 12/07/20 05:25 Tidal Volume 420 mL 12/07/20 05:25 PEEP 15 cmH2O 12/07/20 05:25 Pressure Support Vent 10 cmH2O 11/30/20 05:05 Sodium 145 mmol/L (135-145) 12/07/20 05:13 Potassium 4.7 mmol/L (3.5-5.0) 12/07/20 05:13 Chloride 110 mmol/L (101-111) 12/07/20 05:13 Carbon Dioxide 24 mmol/L (21-32) 12/07/20 05:13 Anion Gap 11.0 (6-13) 12/07/20 05:13 BUN 47 mg/dL (6-20) H 12/07/20 05:13 Creatinine 1.0 mg/dL (0.4-1.0) 12/07/20 05:13 Estimated GFR (MDRD) 56 (>89) L 12/07/20 05:13 Glucose 189 mg/dL (70-100) H 12/07/20 05:13 POC Whole Bld Glucose 168 mg/dL (70 - 100) H 12/07/20 11:29 Estimat Average Glucose 140 mg/dL (70-100) H 12/04/20 04:41 Hemoglobin A1c % 6.5 % (4.27-6.07) H 12/04/20 04:41 Lactic Acid 1.5 mmol/L (0.5-2.2) 11/30/20 05:12 Calcium 8.4 mg/dL (8.5-10.3) L 12/07/20 05:13 Phosphorus 4.7 mg/dL (2.5-4.6) H 12/07/20 05:13 Magnesium 2.4 mg/dL (1.7-2.8) 12/07/20 05:13 Total Bilirubin 0.5 mg/dL (0.2-1.0) 12/07/20 05:13 Direct Bilirubin 0.3 mg/dL (0.1-0.5) 12/01/20 05:30 AST 13 IU/L (10-42) 12/07/20 05:13 ALT 20 IU/L (10-60) 12/07/20 05:13 Alkaline Phosphatase 98 IU/L (42-121) 12/07/20 05:13 Troponin I High Sens 14.9 ng/L (2.3-14.8) H* 11/30/20 05:12 Total Protein 5.4 g/dL (6.7-8.2) L 12/07/20 05:13 Albumin 1.7 g/dL (3.2-5.5) L 12/07/20 05:13 Globulin 3.7 g/dL (2.1-4.2) 12/07/20 05:13 Albumin/Globulin Ratio 0.5 (1.0-2.2) L 12/07/20 05:13 Prealbumin 12 mg/dL (18-45) L 12/05/20 04:20 Triglycerides 344 mg/dL (-149) H 12/01/20 05:30 Nasal Screen MRSA (PCR) NEGATIVE (NEGATIVE) 11/29/20 21:15 - Procedures Procedures: Procedures CARPAL TUNNEL RELEASE (04/16/13) DESTRUCT-KNEE LESION NEC (07/09/14) EXCIS KNEE SEMILUN CARTL (07/09/14) EXPLOR TEND SHEATH-HAND (04/16/13)
[2020-12-07] MEDS: ACETAMINOPHEN 1,000 MG/100 ML 100 ML IV PRN (17:32)
[2020-12-07] MEDS: SODIUM CHLORIDE FLUSH 0.9% 10 ML SYRINGE IVP PRN ×6 (19:44→23:51)
[2020-12-07] MEDS ORDERED: ALBUMIN 25% 12.5 GM/50 ML VIAL IV ONE (20:00)
[2020-12-07] MEDS ORDERED: IOVERSOL 320 100 ML VIAL IVP ONE (20:34)
[2020-12-07] MEDS ORDERED: FUROSEMIDE 20 MG/2 ML VIAL IVP ONE (21:00)
[2020-12-08] MEDS: INSULIN REGULAR HUMAN 300 UNIT/3 ML VIAL SUBQ SCH ×3 (00:04→12:32)
[2020-12-08] MEDS: diltiaZEM INJ 5 MG/ML VIAL IVP SCH ×4 (00:36→13:06)
[2020-12-08] MEDS: SODIUM CHLORIDE FLUSH 0.9% 10 ML SYRINGE IVP SCH ×2 (00:38→09:27)
[2020-12-08] MEDS: DEXMEDETOMIDINE 1,000 MCG in SODIUM CHLORIDE 0.9% 250 ML IV SCH ×2 (00:39→13:39)
[2020-12-08] MEDS: MIDAZOLAM DRIP 50 MG/100 ML BAG IV SCH ×3 (00:42→14:20)
[2020-12-08] MEDS: fentaNYL 2,500 MCG/250 ML 2,500 MCG/250 ML BAG IV SCH ×3 (03:17→13:18)
[2020-12-08] MEDS: metroNIDAZOLE 500 MG/100 ML 500 MG/100 ML BAG IV SCH ×2 (03:44→12:25)
[2020-12-08] MEDS: ACETAMINOPHEN 1,000 MG/100 ML 100 ML IV PRN (05:03)
[2020-12-08] MEDS: SODIUM CHLORIDE FLUSH 0.9% 10 ML SYRINGE IVP PRN ×8 (05:04→13:09)
[2020-12-08] MEDS: CEFEPIME 2 GM in SODIUM CHLORIDE 0.9% MINIBAG 100 ML IV SCH ×2 (05:06→13:35)
[2020-12-08 05:07] LABS: BASOPHILS % (AUTO) 0.2 %; EOSINOPHILS % (AUTO) 0.1 %; HGB - HEMOGLOBIN 9.5 g/dL (12.0-16.0); LYMPHOCYTES % (AUTO) 3.3 %; MEAN CORPUSCULAR HGB CONC 29.7 g/dL (32.0-36.0); MEAN CORPUSCULAR VOLUME 100.9 fL (81.0-99.0); MEAN PLATELET VOLUME 10.5 fL (7.9-10.8); MONOCYTES % (AUTO) 3.8 %; NEUTROPHILS % (AUTO) 87.7 %; PLT - PLATELET COUNT 189 10^3/uL (130-450); RED BLOOD COUNT 3.17 10^6/uL (4.20-5.40); RED CELL DISTRIBUTION WIDTH 14.2 % (12.0-15.0); WHITE BLOOD COUNT 15.9 x10^3/uL (4.8-10.8)
[2020-12-08 05:08] LABS: CALCIUM, IONIZED 1.23 mmol/L (1.15-1.33); VBG PH 7.288 (7.31-7.41)
[2020-12-08 05:13] LABS: ABNORMAL LYMPHS % (MANUAL) 0 %
[2020-12-08 05:23] LABS: ALBUMIN 1.9 g/dL (3.2-5.5); ALBUMIN/GLOBULIN RATIO 0.6 (1.0-2.2); BILIRUBIN,TOTAL 0.6 mg/dL (0.2-1.0); CALCIUM 8.6 mg/dL (8.5-10.3); MAGNESIUM 2.5 mg/dL (1.7-2.8); PHOSPHORUS 3.7 mg/dL (2.5-4.6); POTASSIUM 4.7 mmol/L (3.5-5.0); TOTAL PROTEIN 5.3 g/dL (6.7-8.2)
[2020-12-08 05:24] LABS: BAND NEUTROPHILS % (MANUAL) 1 %; LYMPHOCYTES # (MANUAL) 0.5 10^3/uL (1.5-3.5); LYMPHOCYTES % (MANUAL) 3 %; METAMYELOCYTES % (MANUAL) 1 %; MONOCYTES # (MANUAL) 0.2 10^3/uL (0.0-1.0); NEUTROPHILS # (MANUAL) 15.1 10^3/uL (1.5-6.6)
[2020-12-08 05:25] LABS: DIFFERENTIAL COMMENT MANUAL DIFFERENTIAL; PLATELET ESTIMATE, MANUAL NORMAL (130-450,000) (NORMAL); PLATELET MORPHOLOGY NORMAL APPEARANCE (NORMAL); RBC MORPHOLOGY (MULTIPLE) NORMAL APPEARANCE (NORMAL); WBC MORPHOLOGY (MULTIPLE) NORMAL APPEARANCE (NORMAL)
[2020-12-08] MEDS: METOCLOPRAMIDE 10 MG/2 ML VIAL IVP SCH ×2 (06:08→12:27)
[2020-12-08] MEDS: PANTOPRAZOLE 40 MG VIAL IVP SCH (06:09)
[2020-12-08 06:44] LABS: ABG BASE EXCESS -1.9 mmol/L (-2.0-3.0); ABG HCO3 25.4 mmol/L (22.0-26.0); ABG OXYGEN SATURATION 94 % (94-98); ABG PCO2 56 mmHg (34-45); ABG PH 7.28 (7.35-7.45); ABG PO2 80 mmHg (80-100); ABG TCO2 27.1 MMOL/L (21.0-29.0)
[2020-12-08 06:45] LABS: ABG MODE OF VENTILATION ASSIST/CONTROL; ABG RESPIRATORY RATE 35 b/min; ALLEN TEST POSITIVE
[2020-12-08] MEDS: VECURONIUM 100 MG in SODIUM CHLORIDE 0.9% 100ML 100 ML IV SCH (06:59)
[2020-12-08] MEDS: IPRATROPIUM/ALBUTEROL 3 ML NEB INH SCH ×3 (07:30→14:54)
[2020-12-08] MEDS: FORMOTEROL FUMARATE NEB 20 MCG/2 ML INH SCH (07:30)
[2020-12-08] MEDS: BUDESONIDE 0.5 MG/2 ML NEB INH SCH (07:30)
--- NOTE | 2020-12-08 08:02 | XRAY Report ---
PROCEDURE: Chest 1 View X-Ray INDICATIONS: dyspnea, hypoxia TECHNIQUE: One view of the chest was acquired. COMPARISON: 11/28/2020 FINDINGS: Surgical changes and devices: Endotracheal tube projects approximately 3.9 cm above jabari. Nasogastr ic tube extends below the level of the diaphragm with the distal tip excluded from the [id number]. Right central venous catheter tip projects over the upper SVC. Lungs and pleura: Stable appearance of diffuse interstitial prominence and diffuse ill-defined airspa ce opacities predominantly in the mid and lower lung zones. Likely small bilateral pleural effusions, larger on the right. No pneumothorax. Mediastinum: Mediastinal contours appear stable. Heart size is stable. Bones and chest wall: No suspicious bony lesions. Overlying soft tissues appear unremarkable. IMPRESSION: 1. Stable appearance of support equipment. 2. Stable cardiopulmonary evaluation with diffuse bilateral airspace opacities. No significant discrepancy with initial interpretation by overnight radiologist. Reviewed by: Karl Washburn MD on 12/08/2020 8:01 AM PST Approved by: Karl Washburn MD on 12/08/2020 8:01 AM PST Station ID: [id number]
[2020-12-08] MEDS: MINERAL OIL/PETROLAT OPHTH OINT EACHEYE PRN (08:29)
[2020-12-08] MEDS ORDERED: PETROLATUM WHITE 5 GM PACKET TOP PRN (08:40)
[2020-12-08] MEDS: DEXAMETHASONE 4 MG/ML VIAL IVP SCH (09:28)
[2020-12-08] MEDS: ENOXAPARIN 40 MG/0.4 ML SYRINGE SUBQ SCH (09:35)
[2020-12-08] MEDS: BISACODYL 10 MG SUPP PR PRN (10:00)
[2020-12-08] MEDS: levoFLOXacin 750 MG/150 ML 750 MG/150 ML BAG IV SCH (10:31)
[2020-12-08] MEDS: SODIUM CHLORIDE 0.9% 500 ML IV PRN (10:36)
--- NOTE | 2020-12-08 14:21 | DISCHARGE SUMMARY ---
Discharge Summary Admit Date: 11/29/20 Discharge Date: 12/08/20 Discharging Provider: Jessy Love MD Primary Care Provider: Marshall Fontana [facility] Code Status: Attempt Resuscitation Condition at Discharge: Critical Discharge Disposition: 02 Transfer Acute Care Hosp Discharge [facility] - DIAGNOSES Discharge Diagnoses with Status of Each Condition: 1. COVID-19 pneumonia 2. Acute respiratory failure with hypoxia and hypercapnia 3 status asthmaticus 4. Morbid obesity 5. Hypertension 6. Chronic pain syndrome 7. Hypokalemia, present on admission, resolved 8. Acute kidney injury present on admission, resolved 9. Hyperglycemia with A1c 6.5%, new onset 10. Supraventricular tachycardia requiring diltiazem 11. Constipation 12. Myringotomy tube status 13. Stage II pressure injury to both cheeks, deep tissue injury to chin (Stage unspecified) - HPI History of Present Illness: She has chronic allergies With asthma, chronic Sinusitis and was scheduled to get a Redo TM tube 7 days ago. Is on a lot of medicine for her asthma and allergies. But he says that she has never been hospitalized or on long-term steroids for it. In preop evaluation she was Covid positive November 23. Was not symptomatic until 3 days later with low-grade fever, all over body aches, chills, anorexia. For the last 3 days has been having increasing cough, wheezing, shortness of breath. She woke up this morning and walked to sit down in her chair in the living room. Her tells me that she sat in the chair "snoozing" off and on all day long. It was not till later on, around lunchtime, that he noticed that there was a distinct lack of response from her. He would walk after, ask if she needed anything and she would just stare at him but not respond. She really did not eat or drink anything all day long. At dinnertime he knew something was wrong because she usually snaps at him. He describes her as a very feisty person, "she who must be obeyed". The fact that she did not have a sharp response to his asking her to eat some dinner made him start to get really worried. She just would stare at him and was starting to pant like a dog. That is when he called EMS. Her O2 sat was in the 40s and she was put on a nonrebreather oxygen mask. That brought her up to 80%. She was seen by Dr. Sharp where temperature was 39.1. Heart rate 120. Respiratory rate 45. Blood pressure 137/119 and O2 sat was 82%. Dr. Sy gave her steroids, Rocephin, azithromycin for underlying community-acquired pneumonia on top of Covid pne umonia and put her on BiPAP and O2 sat is come up to 99%. White cell count is 13.8, hemoglobin 13.7. Hematocrit 40.7. We have been asked to admit the patient. She will be admitted to ICU. We later found out from her son, that EMS had been previously called to the house 2 days earlier. She was confused, fell out of bed, and O2 sats were in the 70s. But she refused transfer. So her son is concerned that she has been hypoxic for longer than has been safe. When she first presented to the emergency room she was so tachypneic and agitated that she was pulling off her mask, pulling out her lines. Could not follow instructions. She also received Ativan and morphine. Between the sedatives, steroids, BiPAP mask, her respiratory rate started in the 50s and is now in the low 30s. She is starting to actually answer questions in monosyllabic responses. She is tracking, able to nod her head yes or shake her head no appropriately. In transferring her from the ER [place] to the ICU bed, s he is cooperative. She is able to sit up, take off her T-shirt, take off her pajama bottoms with the help of the nurse that she can to be put into a gown. - Past Medical History Cardiovascular: reports: Hypertension, High cholesterol Respiratory: reports: Asthma (For which she takes Advair, fexofenadine, cromolyn, albuterol and ipratropium, Flonase, and Singulair.) Neuro: reports: Other (Carpal tunnel syndrome in the past) GI: reports: GERD, Hiatal hernia, Diverticulitis LAB SCIENTIST: reports: Other () : reports: None HEENT: reports: Chronic sinusitis, Other (History of muscle tension dysphonia) Psych: reports: None Musculoskeletal: reports: Osteoarthritis (Of the shoulders. Posttraumatic osteoarthritis right knee 2013), Fibromyalgia, Chronic back pain (Back pain with nerve injury 2004) Derm: reports: None MRSA Hx?: No - Past Surgical History General: reports: Cholecystectomy (1994), Colonoscopy Ortho: reports: Shoulder arthroplasty, Carpal Tunnel surgery (April 2013 after [facility] arthroplasty), Other ([facility] arthroplasty October 2012 with postoperative right hand numbness and tingling) /LAB SCIENTIST: reports: Hysterectomy (2004), Oophrectomy (1998) - CONSULTS | PROCEDURES Consultations: PARTS TECHNICIAN/anesthesia for vent management Procedures: 1. Endotracheal intubation and reintubation 2. Daily chest x-rays showing diffuse interstitial prominence and diffuse ill- defined airspace opacities predominantly in the mid and lower lung zones. Small bilateral pleural effusions. Larger on the right. No pneumothorax. 3. Abdomen x-ray for OG tube placement. 4. Venous Dopplers without evidence of DVT of the right or left leg 5. Echocardiogram with a normal left ventricle. Left ventricular systolic function 55 to 60%. Right ventricle normal. No hemodynamically significant valvular heart disease. No pericardial effusion. 6. Blood culture with staph epidermidis on admission November 29 felt to be contaminant. Repeat blood culture December 06 negative after 2 days. Respiratory culture December 01 with a predominance of yeast. Normal respiratory meaghan. - HOSPITAL COURSE Hospital Course: Patient was placed in the ICU with acute respiratory failure. She initially responded to BiPAP from the emergency room. She was started on Decadron, and empiric antibiotic therapy to cover possible secondary pneumonia. She is not a candidate for remdesivir due to her high oxygen needs. Unfortunately she continued to deteriorate and need higher levels of oxygen that can be delivered. She also was not tolerating the BiPAP because of claustrophobia and was pulling off the mask. She was then intubated. Put on high-dose propofol drip, it did maintain her and as such Precedex was started. At 1 point she was both Precedex and propofol. Maintaining a good blood pressure. In spite of that she extubated herself and needed to be emergently reintubated. She has been maintained on vecuronium, fentanyl, and Precedex. She is difficult to keep intubated due to agitation. We have attempted to tube feed her. Unfortunately is been difficult to to feed her because we are proning her and switching positions for her. She has been getting approximately 600 jignesh a day intermittently. Antibiotics were continued and were switched to cefepime and Levaquin and Flagyl. Antibiotics have been changed because she continues to spike fevers daily as high as 39.5. She is not responding to first-line antibiotics and as such they have been changed several times. Admission acute kidney injury has resolved. Creatinine has returned to normal. She is probably type II diabetic with new diagnosis. Even before steroids were given her A1c was 6.5%. She has been maintained on a sliding scale insulin while here. It is now day 10 of her stay. 10 days of intubation. We are now having to face continue nutrition, possible tracheostomy, in a patient will need further respiratory support via ventilator. [facility] and she has exceeded our ability to provide adequate surgical subspecialty care. We have reached out to [facility] and Dr. Albright has accepted the patient in transfer. I did speak to the who was saddened to hear that we were transferring his . He feels as if he has better access to or here if he needed to see her if she had a turn for the worse. I explained to them that the physicians at [facility] will call him as much as we have called him here. On transfer the patient is intubated, on a fentanyl, vecuronium, Precedex drip. This morning's blood gas has a pH of 7.28. PCO2 56. O2 80. Base excess -1.9. She is assist-control, rate of 35, tidal volume 420 with her weight being 121 kg. FiO2 is 70 to 80%. PEEP is 18. She is 5 foot 9 inches tall. BMI 39.6. MRSA negative, Covid negative. Coarse upper airway sounds. A regular rate and rhythm. Normal bowel sounds. She has severe, severe edema. She has been receiving Lasix at night. Periorbital edema and pressure injuries are noted on the cheeks Stage II, chin deep tissue, and tongue from being prone. Although the tongue may be a bite, we could not tell. She is transferred in stable condition, however critically ill. Greater than 30 minutes was spent coordinating discharge. - ALLERGIES Allergies/Adverse Reactions: Allergies Allergy/AdvReac Type Severity Reaction Status Date / Time adhesive AdvReac Severe Blisters Verified 09/24/20 01:17 codeine [Codeine] AdvReac Mild Cramps Verified 09/24/20 01:17 adhesive tape AdvReac Rash Verified 12/01/20 10:35 Fish Containing Products AdvReac Nausea Verified 09/24/20 01:17 - MEDICATIONS Home Medications: Ambulatory Orders Medication Instructions Recorded Confirmed Albuterol 2.5 mg INH DAILY PRN 04/15/13 11/29/20 Aspirin 81 mg PO DAILY 04/15/13 11/29/20 Atorvastatin Calcium [Lipitor] 20 mg PO DAILY 04/15/13 11/29/20 Gabapentin [Neurontin] 1,200 mg PO HS 04/15/13 11/29/20 Gabapentin [Neurontin] 600 mg PO BID 04/15/13 11/30/20 Montelukast Sodium [Singulair] 10 mg PO DAILY 04/15/13 11/29/20 Fluticasone Propionate [Flonase 2 spray JACQUELINE DAILY 05/26/15 11/29/20 Allergy Relief] Tiotropium [place] [Spiriva] 1 tab INH QDBREAKFAST 05/27/15 11/29/20 HYDROcod/ACETAM 5/325 [Vicodin 1 tab PO Q6H PRN 10/28/15 11/29/20 5/325] Loratadine [Claritin] 10 mg PO DAILY 11/29/20 11/29/20 Losartan Potassium 50 mg PO DAILY 11/29/20 11/29/20 Pantoprazole [Protonix] 40 mg PO BID 11/29/20 11/29/20 Duloxetine HCl [Cymbalta] 60 mg PO DAILY 11/30/20 11/30/20 Fluticasone/Salmeterol [Advair 1 inh INH BID 11/30/20 11/30/20 250-50 Diskus] Hydrochlorothiazide 12.5 mg PO DAILY 11/30/20 11/30/20 Meloxicam [Mobic] 15 mg PO DAILY 11/30/20 11/30/20 dilTIAZem HCL [Diltiazem 24Hr ER 240 mg PO DAILY 11/30/20 11/30/20 (Xr)] - LABS Result Diagrams: 12/08/20 04:57 12/08/20 04:57
[2020-12-08] MEDS: CHLORHEXIDINE GLUCONATE 15 ML UDC PO SCH (14:57)
[2020-12-08 16:28] LABS: CORONAVIRUS 229E-RESP PCR NOT DETECTED; CORONAVIRUS HKU1-RESP PCR NOT DETECTED; CORONAVIRUS NL63-RESP PCR NOT DETECTED; CORONAVIRUS OC43-RESP PCR NOT DETECTED
[2020-12-08 16:33] LABS: B. PARAPERTUSSIS- RESP PCR PAN NOT DETECTED; B. PERTUSSIS- RESP PCR PANEL NOT DETECTED; C. PNEUMONIAE- RESP PCR PANEL NOT DETECTED; HUMAN METAPNEUMOVIRUS NOT DETECTED; INFLUENZA A- RESP PCR PANEL NOT DETECTED; INFLUENZA B - RESP PCR PANEL NOT DETECTED; M. PNEUMONIAE- RESP PCR PANEL NOT DETECTED; PARAINFLUENZA VIRUS 1 NOT DETECTED; PARAINFLUENZA VIRUS 2 NOT DETECTED; PARAINFLUENZA VIRUS 3 NOT DETECTED; PARAINFLUENZA VIRUS 4 NOT DETECTED; RHINOVIRUS/ENTEROVIRUS NOT DETECTED; RSV- RESP PCR PANEL NOT DETECTED; SARS-CoV-2 -RESP PCR PANEL DETECTED
[2020-12-08 16:34] VITALS: BP 120/62
--- NOTE | 2020-12-08 19:29 | Discharge Plan ---
Discharge Plan Problem Reviewed?: Yes Disposition: 02 Transfer Acute Care Hosp Condition: Critical No Smoking: If you smoke, Please STOP! Call for help.
== END 2020-12-08 19:38 | disposition short-term general hospital (02) | DRG 207 ==
LOC: ED 18:14 → ICU 19:01 → UNDOADMIN 19:01
PROVIDERS: ADMIT Internal Medicine; ATTEND Specialist
PROC: 0BH17EZ Insertion of Endotracheal Airway into Trachea, Via Natural or Artificial Opening (ICD-10-PCS; principal; 2020-11-30)
PROC: 5A1955Z Respiratory Ventilation, Greater than 96 Consecutive Hours (ICD-10-PCS; 2020-11-30)
PROC: 02HV33Z Insertion of Infusion Device into Superior Vena Cava, Percutaneous Approach (ICD-10-PCS; 2020-11-30)
PROC: 03HY32Z Insertion of Monitoring Device into Upper Artery, Percutaneous Approach (ICD-10-PCS; 2020-11-30)
PROC: 0B21XEZ Change Endotracheal Airway in Trachea, External Approach (ICD-10-PCS; 2020-12-01)
DX: U07.1 COVID-19 (principal); J12.82 Pneumonia due to coronavirus disease 2019; J96.00 Acute respiratory failure, unspecified whether with hypoxia or hypercapnia; J96.02 Acute respiratory failure with hypercapnia; J45.909 Unspecified asthma, uncomplicated; R00.0 Tachycardia, unspecified; J96.01 Acute respiratory failure with hypoxia; J18.9 Pneumonia, unspecified organism; J45.902 Unspecified asthma with status asthmaticus; N17.9 Acute kidney failure, unspecified; I47.1 Supraventricular tachycardia; Z78.1 Physical restraint status; Z79.899 Other long term (current) drug therapy; E66.01 Morbid (severe) obesity due to excess calories; I10 Essential (primary) hypertension; G89.4 Chronic pain syndrome; E87.6 Hypokalemia; K59.00 Constipation, unspecified; Z96.22 Myringotomy tube(s) status; E78.00 Pure hypercholesterolemia, unspecified; Z87.891 Personal history of nicotine dependence; R73.9 Hyperglycemia, unspecified; L89.812 Pressure ulcer of head, stage 2; Z68.39 Body mass index [BMI] 39.0-39.9, adult; L89.816 Pressure-induced deep tissue damage of head; J32.9 Chronic sinusitis, unspecified
CPT/HCPCS: 36415; 36600; 71045; 74018; 80048; 80053; 80076; 82040; 82330; 82803; 83036; 83605; 83735; 84100; 84134; 84478; 84484; 85025; 85379; 85610; 87040; 87070; 87150; 87181; 87205; 87631; 93005; 93306; 93970; 94002; 94003; 94640; 94660; 96374; 99285; 99291; A9270; J0131; J1650; J1815; J2060; J2765; J3010; J3370; J7120; J7626; P9047; 0202U; 80202; 94770